=== PATIENT | female | born 1970 | race African-American/Black ===

== ENCOUNTER 2017-04-21 20:33 | Emergency (ER) | payer OTHER ==
[2017-04-21 20:43] VITALS: BMI 54.7
--- NOTE | 2017-04-21 21:17 | PDOC ---
History of Present Illness - General History Source: Patient Exam Limitations: No Limitations - History of Present Illness Travel History: No Initial Comments: 04/21/17 21:28 46-year-old female with a history of peripheral neuropathy presents to the emergency department complaining of nausea, vomiting, diarrhea/nonbloody: Nonbilious with diffuse abdominal pains 3 days. Pain is described as 8/10 dull nonradiating intermittent discomfort. There are no exacerbating or alleviating factors. Patient denies any headache, dizziness, lightheadedness, neck pain, back pains, chest pain, shortness of breath, flank pains, urinary symptoms, Olaf numbness or tingling sensation. 2002: Patient weigh 454 pounds. Gastric bypass/[facility]: Until rolled Dr. Pike Lost 170lb in 90 days 2014: Revision/gastric bypass due to poss severe adhesions/Dr. Brumfield [facility] Dr. Sepulveda/ Pt lost ~80lb over the past 3 years Timing/Duration: reports: intermittent Quality: reports: moderate Abdominal Pain Onset Location: reports: generalized abdomen Pain Radiation: reports: no radiation Activities at Onset: reports: none Aggravating Factors: improves with: None Alleviating Factors: improves with: None <Quinton Whitlock - Last Filed: 04/22/17 02:08> <Augusto Escudero - Last Filed: 04/24/17 09:15> - General Chief Complaint: Shortness of Breath Stated Complaint: TROUBLE BREATHING Time Seen by Provider: 04/21/17 21:05 Past History - Past Medical History Anemia: Yes Dementia: No Diabetes: No Suicide Attempt (Hx): No - Surgical History Gastric Stapling: Yes (x2) - Immunization History Immunization Up to Date: Yes - Psycho/Social/Smoking Cessation Hx Anxiety: No Suicidal Ideation: No Smoking Status: No Smoking History: Never smoked Have you smoked in the past 12 months: No Number of Cigarettes Smoked Daily: 0 Hx Alcohol Use: No Drug/Substance Use Hx: No Substance Use Type: None Hx Substance Use Treatment: No <Quinton Whitlock - Last Filed: 04/22/17 02:08> <Augusto Escudero - Last Filed: 04/24/17 09:15> - Past Medical History Allergies/Adverse Reactions: Allergies Allergy/AdvReac Type Severity Reaction Status Date / Time erythromycin base Allergy Mild Hives Verified 04/21/17 20:44 [Erythromycin Base] Home Medications: Ambulatory Orders Clonazepam [Klonopin -] 0.5 mg PO HS PRN 11/07/11 Topiramate [Topamax] 50 mg PO BID 07/31/12 Levothyroxine [Synthroid -] 25 mcg PO DAILY 08/04/13 Biotin [Redd Biotin] 10,000 mcg PO DAILY 12/10/14 Cyanocobalamin [Vitamin B12 -] 50,000 mcg PO DAILY 12/10/14 Morphine *Sr* [MS Contin -] 15 mg PO Q12H PRN 12/10/14 Pregabalin [Lyrica -] 25 mg PO BID 12/10/14 Pyridoxine HCl [Vitamin B-6] 1,000 mg PO DAILY 12/10/14 Thiamine HCl [Vitamin B1] 25 mg PO DAILY 12/10/14 Vitamin E 5,000 unit PO DAILY 12/10/14 Meloxicam [Mobic] 15 mg PO DAILY 06/24/16 Omeprazole 20 mg PO DAILY 06/24/16 Lisinopril/Hydrochlorothiazide [Lisinopril-Hctz 20-25 mg Tab] 1 each PO DAILY Levofloxacin [Levaquin] 750 mg PO DAILY #9 tablet 04/22/17 Review of Systems - Review of Systems Able to Perform ROS?: Yes Comments:: 04/21/17 21:25 CONSTITUTIONAL: Absent: fever, chills, diaphoresis, generalized weakness, malaise, loss of appetite CARDIOVASCULAR: Absent: chest pain, loss of consciousness, palpitations, irregular heart rate, peripheral edema RESPIRATORY: Absent: cough, shortness of breath, dyspnea with exertion, orthopnea, wheezing, stridor, hemoptysis GASTROINTESTINAL: Absent: +Diffuse abd pain, +n/v/d abdominal distension, constipation, melena, hematochezia GENITOURINARY: Absent: dysuria, frequency, urgency, hesitancy, hematuria, flank pain, genital pain SKIN: Absent: rash, itching, pallor HEMATOLOGIC/IMMUNOLOGIC: Absent: easy bleeding, easy bruising, lymphadenopathy, frequent infections ENDOCRINE: Absent: unexplained weight gain, unexplained weight loss, heat intolerance, cold intolerance NEUROLOGIC: Absent: headache, focal weakness or paresthesias, dizziness, unsteady gait, seizure, mental status changes, bladder or bowel incontinence PSYCHIATRIC: Absent: anxiety, depression, suicidal or homicidal ideation, hallucinations. Is the patient limited Portuguese proficient: No <Quinton Whitlock - Last Filed: 04/22/17 02:08> *Physical Exam - Vital Signs Last Vital Signs Temp Pulse Resp BP Pulse Ox 100.6 F H 97 H 20 149/56 98 04/21/17 20:42 04/21/17 20:42 04/21/17 20:42 04/21/17 20:42 04/21/17 20:42 - Physical Exam Comments: 04/21/17 21:26 GENERAL: Well developed, well nourished. Awake and alert. No acute distress. HEENT: Normocephalic, atraumatic. PERRLA, EOMI. No conjunctival pallor. Sclera are non- icteric. Moist mucous membranes. Oropharynx is clear. NECK: Supple. Full ROM. No JVD. Carotid pulses 2+ and symmetric, without bruits. No thyromegaly. No lymphadenopathy. CARDIOVASCULAR: Regular rate and rhythm. No murmurs, rubs, or gallops. Distal pulses are 2+ and symmetric. PULMONARY: No evidence of respiratory distress. Lungs clear to auscultation bilaterally. No wheezing, rales or rhonchi. ABDOMINAL: +diffuse abd pain Soft. Non-distended. No rebound or guarding. No organomegaly. Normoactive bowel sounds. MUSCULOSKELETAL Normal range of motion at all joints. No bony deformities or tenderness. No CVA tenderness. EXTREMITIES: No cyanosis. No clubbing. No edema. No calf tenderness. SKIN: Warm and dry. Normal capillary refill. No rashes. No jaundice. NEUROLOGICAL: Alert, awake, appropriate. Cranial nerves 2-12 intact. No deficits to light touch and temperature in face, upper extremities and lower extremities. No motor deficits in the in face, upper extremities and lower extremities. Normoreflexic in the upper and lower extremities. Normal speech. Toes are down- going bilaterally. Gait is normal without ataxia. PSYCHIATRIC: Cooperative. Good eye contact. Appropriate mood and affect. <Quinton Whitlock - Last Filed: 04/22/17 02:08> - Vital Signs Last Vital Signs Temp Pulse Resp BP Pulse Ox 98.8 F 82 18 138/76 98 04/22/17 04:30 04/22/17 04:30 04/22/17 04:30 04/22/17 04:30 04/22/17 04:30 <Augusto Escudero - Last Filed: 04/24/17 09:15> ED Treatment Course - LABORATORY CBC & Chemistry Diagram: 04/21/17 21:30 04/21/17 22:11 - RADIOLOGY Radiograph Interpretation: 04/22/17 02:08 EXAM: CT ABDOMEN AND PELVIS WITH CONTRAST Patchy densities right lower lobe, consistent with pneumonia. Gastric bypass. No bowel obstruction, colitis, free fluid or free air. Normal appendix. Unremarkable pancreas. Tiny cortical hypodensities left kidney. Caliectasis left lower pole versus small parapelvic cyst. Hepatomegaly. Cholelithiasis. THIS DOCUMENT HAS BEEN ELECTRONICALLY SIGNED <Quinton Whitlock - Last Filed: 04/22/17 02:08> - LABORATORY CBC & Chemistry Diagram: 04/21/17 21:30 04/21/17 22:11 - ADDITIONAL ORDERS Additional order review: 04/21/17 21:30 RBC 4.81 MCV 75.2 L MCHC 32.4 RDW 16.6 H MPV 8.7 Neutrophils % 82.2 D Lymphocytes % 11.2 D Monocytes % 5.6 Eosinophils % 0.1 D Basophils % 0.9 - Medications Given in the ED: ED Medications Discontinued Medications Generic Name Dose Route Start Last Admin Trade Name Jenifer PRN Reason Stop Dose Admin Acetaminophen 1,000 mg 04/22/17 01:41 04/22/17 01:41 Ofirmev Injection - IVPB 04/22/17 01:42 1,000 mg ONCE ONE Administration Sodium Chloride 1,000 mls @ 150 mls/hr 04/21/17 21:30 04/21/17 21:35 Normal Saline - IV 150 mls/hr ASDIR MILTON Administration Levofloxacin 150 mls @ 100 mls/hr 04/22/17 01:43 04/22/17 02:30 Levaquin 750 Mg Premixed Ivpb - IVPB 04/22/17 03:12 100 mls/hr ONCE ONE Administration <Augusto Escudero - Last Filed: 04/24/17 09:15> Medical Decision Making - Medical Decision Making 04/24/17 09:14 The patient was seen and evaluated in conjunction with KATHERINE Whitlock under my direct supervision, ancillary studies were reviewed. I agree with the plan as outlined by KATHERINE Whitlock. <Kena,Augusto - Last Filed: 04/24/17 09:15> *DC/Admit/Observation/Transfer - Discharge Dispostion Admit: No <Quinton Whitlock - Last Filed: 04/22/17 02:08> <KenaAugusto - Last Filed: 04/24/17 09:15> Diagnosis at time of Disposition: Pneumonia Qualifiers: Pneumonia type: due to unspecified organism Laterality: right Lung location: lower lobe of lung Qualified Code(s): J18.1 - Lobar pneumonia, unspecified organism Cholelithiasis Qualifiers: Cholelithiasis location: gallbladder Cholecystitis presence: without cholecystitis Biliary obstruction: without biliary obstruction Qualified Code(s) : K80.20 - Calculus of gallbladder without cholecystitis without obstruction - Discharge Dispostion Disposition: HOME Condition at time of disposition: Stable - Prescriptions Prescriptions: Levofloxacin [Levaquin] 750 mg PO DAILY #9 tablet - Referrals Referrals: Emelia Mulligan [Primary Care Provider] - Chung Boo MD [Staff Physician] - - Patient Instructions Printed Discharge Instructions: DI for Pneumonia -- Adult, DI for Gallstones Additional Instructions: Take the Levaquin 750mg 1 tablet daily for the next 9 days. (Start tomorrow; ). You had your first dose in the ER today. Increase fluids Take Tylenol alternating with Motrin every 6 hours as needed Follow-up with your physician, especially if you are not fever free for 48-72 hours while taking the antibiotics Return to the emergency department for persistent/severe or worsening symptoms Follow-up with a general surgeon (Dr. Boo)for consultation on your gallstones.
[2017-04-21] MEDS ORDERED: SODIUM CHLORIDE 1,000 ML IV SCH (21:30)
[2017-04-21 21:39] LABS: BASOPHIL 0.9 % (0-2.0); EOSINOPHIL 0.1 % (0-4.5); MCH 24.4 pg (25.7-33.7); MCHC 32.4 g/dl (32.0-36.0); MEAN CELL VOLUME 75.2 fl (80-96); MEAN PLT VOLUME 8.7 fl (7.5-11.1); NEUTROPHILS 82.2 % (42.8-82.8); PLATELET COUNT 412 K/MM3 (134-434); RDW 16.6 % (11.6-15.6); WHITE BLOOD COUNT 14.3 K/mm3 (4.0-10.0)
[2017-04-21 22:46] LABS: URINE APPEARANCE SLCLOUDY; URINE BILIRUBIN NEGATIVE (NEGATIVE); URINE BLOOD NEGATIVE (NEGATIVE); URINE COLOR YELLOW; URINE GLUCOSE (UA) NEGATIVE (NEGATIVE); URINE KETONE NEGATIVE (NEGATIVE); URINE LEUK ESTERASE NEGATIVE (NEGATIVE); URINE NITRITE NEGATIVE (NEGATIVE); URINE PROTEIN NEGATIVE (NEGATIVE); URINE UROBILINOGEN NEGATIVE mg/dL (0.2-1.0)
[2017-04-21 22:52] LABS: ALBUMIN 3.8 g/dl (3.4-5.0); ALK PHOS 114 U/L (45-117); ANION GAP 10 (8-16); BILIRUBIN,TOTAL 0.3 mg/dL (0.2-1.0); CALCIUM 9.1 mg/dL (8.5-10.1); CO2 27 mmol/L (21-32); CREATININE 0.8 mg/dL (0.55-1.02); GLUCOSE,RANDOM 86 mg/dL (74-106); SGOT/AST 14 U/L (15-37); SGPT/ALT 17 U/L (12-78); TOT PROT 8.7 g/dl (6.4-8.2)
[2017-04-22] MEDS ORDERED: ACETAMINOPHEN 325 MG TABLET (FP) ONE (01:18)
[2017-04-22] MEDS ORDERED: ACETAMINOPHEN INJECTION 100 ML IVPB ONE (01:20)
[2017-04-22] MEDS ORDERED: ACETAMINOPHEN 1000 MG/100 ML VIAL (NON FORMULARY) IVPB ONE (01:41)
[2017-04-22] MEDS ORDERED: LEVOFLOXACIN 750 MG IVPB 150 ML IVPB ONE ×2 (01:43→02:26)
[2017-04-22 04:31] VITALS: BP 138/76; PULSE 82; TEMP 98.8
--- NOTE | 2017-04-22 06:54 | PN ---
Progress Note (short form) - Note Progress Note: Elizabeth pages me last evening with the message she has N/V/D and abdominal pain and she is going to [facility] ER. I called her back but no answer, I left message to go to ER and call me back. Will f/u with her in the office next week.
--- NOTE | 2017-04-22 11:36 | PN ---
Progress Note (short form) - Note Progress Note: pt paged me from home she was in ER last evening with N/V sent home on levaquin po for PNA but she still keeps vomiting I advised her to come back to ER and I spoke with ER dr Das most likely will need admission to .
== END 2017-04-22 04:30 | disposition home or self-care (01) ==
LOC: JER 20:33
PROC: 3E03329 Introduction of Other Anti-infective into Peripheral Vein, Percutaneous Approach (ICD-10-PCS; principal; 2017-04-21)
PROC: 3E033NZ Introduction of Analgesics, Hypnotics, Sedatives into Peripheral Vein, Percutaneous Approach (ICD-10-PCS; 2017-04-21)
PROC: 3E0337Z Introduction of Electrolytic and Water Balance Substance into Peripheral Vein, Percutaneous Approach (ICD-10-PCS; 2017-04-21)
DX: J18.1 Lobar pneumonia, unspecified organism (principal); K80.20 Calculus of gallbladder without cholecystitis without obstruction; G62.9 Polyneuropathy, unspecified; Z98.84 Bariatric surgery status; Z88.1 Allergy status to other antibiotic agents; D64.9 Anemia, unspecified
CPT/HCPCS: 36415; 71010-TC; 74177-TC; 80053; 81003; 84703; 85025; 99283-25; Q9967

== ENCOUNTER 2017-08-14 23:03 | Emergency (ER) | payer OTHER ==
[2017-08-15 00:05] VITALS: BP 153/96; PULSE 88; TEMP 98.7; BMI 54.8
--- NOTE | 2017-08-15 00:09 | PDOC ---
History of Present Illness - General History Source: Patient Exam Limitations: No Limitations - History of Present Illness Initial Comments: 08/15/17 01:03 The patient is a 47 year old female, with a significant past medical history of neuropathy,Guillain barre syndrome, GERD, hypothyroidism,anemia,lumbar radiculopathy(receives steroid shots), migraines who presents to the emergency department with sudden onset headache and arm pain that began yesterday. Patient reports R sided headache that radiates down RUE. Patient reports pain is 10/10 in severity, throbbing and squeezing in nature. Patient reports taking Tylenol however denies any relief. Patient also feels off balance and presents to the ED for further evaluation. Patient denies chest pain, headache or dizziness. Patient denies fever, chills, abdominal pain, nausea, vomit, diarrhea or constipation. Patient denies dysuria , frequency, urgency or hematuria. Patient denies sick contacts or recent travel. Allergies: erythromycin base Past surgical history: Gastric bypass Social history: None PCP: Dr. Emelia Mulligan <Elvia James - Last Filed: 08/15/17 01:58> <Heather Phelan - Last Filed: 08/15/17 02:33> - General Chief Complaint: Pain, Acute Stated Complaint: PAIN IN RT ARM Time Seen by Provider: 08/14/17 23:33 Past History <Elvia James - Last Filed: 08/15/17 01:58> - Past Medical History Anemia: Yes Dementia: No Diabetes: No - Surgical History Gastric Stapling: Yes (x2) - Immunization History Immunization Up to Date: Yes - Suicide/Smoking/Psychosocial Hx Smoking Status: No Smoking History: Never smoked Have you smoked in the past 12 months: No Number of Cigarettes Smoked Daily: 0 Information on smoking cessation initiated: No Hx Alcohol Use: No Drug/Substance Use Hx: No Substance Use Type: None Hx Substance Use Treatment: No <Heather Phelan - Last Filed: 08/15/17 02:33> - Past Medical History Allergies/Adverse Reactions: Allergies Allergy/AdvReac Type Severity Reaction Status Date / Time erythromycin base Allergy Mild Hives Verified 08/15/17 00:02 [Erythromycin Base] Home Medications: Ambulatory Orders Clonazepam [Klonopin -] 0.5 mg PO HS PRN 11/07/11 Topiramate [Topamax] 50 mg PO BID 07/31/12 Levothyroxine [Synthroid -] 25 mcg PO DAILY 08/04/13 Biotin [Redd Biotin] 10,000 mcg PO DAILY 12/10/14 Cyanocobalamin [Vitamin B12 -] 50,000 mcg PO DAILY 12/10/14 Morphine *Sr* [MS Contin -] 15 mg PO Q12H PRN 12/10/14 Pregabalin [Lyrica -] 25 mg PO BID 12/10/14 Pyridoxine HCl [Vitamin B-6] 1,000 mg PO DAILY 12/10/14 Thiamine HCl [Vitamin B1] 25 mg PO DAILY 12/10/14 Vitamin E 5,000 unit PO DAILY 12/10/14 Meloxicam [Mobic] 15 mg PO DAILY 06/24/16 Omeprazole 20 mg PO DAILY 06/24/16 Lisinopril/Hydrochlorothiazide [Lisinopril-Hctz 20-25 mg Tab] 1 each PO DAILY Review of Systems - Review of Systems Able to Perform ROS?: Yes Comments:: 08/15/17 01:03 CONSTITUTIONAL: Absent: fever, chills, diaphoresis, generalized weakness, malaise, loss of appetite HEENT: Absent: rhinorrhea, nasal congestion, throat pain, throat swelling, difficulty swallowing, mouth swelling, ear pain, eye pain, visual Changes CARDIOVASCULAR: Absent: chest pain, syncope, palpitations, irregular heart rate, lightheadedness , peripheral edema RESPIRATORY: Absent: cough, shortness of breath, dyspnea with exertion, orthopnea, wheezing, stridor, hemoptysis GASTROINTESTINAL: Absent: abdominal pain, abdominal distension, nausea, vomiting, diarrhea, constipation, melena, hematochezia GENITOURINARY: Absent: dysuria, frequency, urgency, hesitancy, hematuria, flank pain, genital pain MUSCULOSKELETAL: Absent: myalgia, arthralgia, joint swelling SKIN: Absent: rash, itching, pallor HEMATOLOGIC/IMMUNOLOGIC: Absent: easy bleeding, easy bruising, lymphadenopathy, frequent infections ENDOCRINE: Absent: unexplained weight gain, unexplained weight loss, heat intolerance, cold intolerance NEUROLOGIC: +headache. Absent: focal weakness or paresthesias, dizziness, unsteady gait, seizure, mental status changes, bladder or bowel incontinence PSYCHIATRIC: Absent: anxiety, depression, suicidal or homicidal ideation, hallucinations. <Jacob,Elvia - Last Filed: 08/15/17 01:58> *Physical Exam - Vital Signs Last Vital Signs Temp Pulse Resp BP Pulse Ox 98.7 F 88 14 153/96 95 08/15/17 00:03 08/15/17 00:03 08/15/17 00:03 08/15/17 00:03 08/15/17 00:03 - Physical Exam Comments: 08/15/17 01:04 GENERAL: Well developed, well nourished. Awake and alert. No acute distress. HEENT: Normocephalic, atraumatic. PERRLA, EOMI. No conjunctival pallor. Sclera are non- icteric. Moist mucous membranes. Oropharynx is clear. NECK: Supple. Full ROM. No JVD. Carotid pulses 2+ and symmetric, without bruits. No thyromegaly. No lymphadenopathy. CARDIOVASCULAR: Regular rate and rhythm. No murmurs, rubs, or gallops. Distal pulses are 2+ and symmetric. PULMONARY: No evidence of respiratory distress. Lungs clear to auscultation bilaterally. No wheezing, rales or rhonchi. ABDOMINAL: Soft. Non-tender. Non-distended. No rebound or guarding. No organomegaly. Normoactive bowel sounds. MUSCULOSKELETAL Normal range of motion at all joints. No bony deformities or tenderness. No CVA tenderness. EXTREMITIES: No cyanosis. No clubbing. No edema. No calf tenderness. SKIN: Warm and dry. Normal capillary refill. No rashes. No jaundice. NEUROLOGICAL: Alert, awake, appropriate. Cranial nerves 2-12 intact. No deficits to light touch and temperature in face, upper extremities and lower extremities. No motor deficits in the in face, upper extremities and lower extremities. Normoreflexic in the upper and lower extremities. Normal speech. Toes are down-going bilaterally. Gait is normal without ataxia. PSYCHIATRIC: Cooperative. Good eye contact. Appropriate mood and affect. <Elvia James - Last Filed: 08/15/17 01:58> - Vital Signs Last Vital Signs Temp Pulse Resp BP Pulse Ox 98.7 F 88 14 153/96 95 08/15/17 00:03 08/15/17 00:03 08/15/17 00:03 08/15/17 00:03 08/15/17 00:03 <Heather Phelan - Last Filed: 08/15/17 02:33> ED Treatment Course - Medications Given in the ED: ED Medications Discontinued Medications Generic Name Dose Route Start Last Admin Trade Name Jenifer PRN Reason Stop Dose Admin Ketorolac Tromethamine 60 mg 08/15/17 00:45 08/15/17 00:58 Toradol Injection - IM 08/15/17 00:46 60 mg ONCE ONE Administration <Elvia James - Last Filed: 08/15/17 01:58> Medical Decision Making - Medical Decision Making 08/15/17 01:[address] IMPRESSION: Normal head THIS DOCUMENT HAS BEEN ELECTRONICALLY SIGNED Rustam Grove MD <Elvia James - Last Filed: 08/15/17 01:58> - Medical Decision Making 08/15/17 02:15 Pt reassessment: -she is moving her arm freely and is much more comfortable plan she already has an appt with DR ANTON rothman Wed -she is already scheduled for EMG of her upper extremities next week IMP -peripheral neuropathy <Heather Phelan - Last Filed: 08/15/17 02:33> *DC/Admit/Observation/Transfer - Attestations Scribe Attestion: 08/15/17 01:04 Documentation prepared by Elvia James, acting as resident medical officer for Heather Phelan MD <Elvia James - Last Filed: 08/15/17 01:58> <Heather Phelan - Last Filed: 08/15/17 02:33> Diagnosis at time of Disposition: Arm pain, left Head pain cephalgia Qualifiers: Headache type: tension-type Headache chronicity pattern: unspecified pattern Intractability: not intractable Qualified Code(s): G44.209 - Tension-type headache, unspecified, not intractable - Discharge Dispostion Disposition: HOME Condition at time of disposition: Stable - Referrals Referrals: Emelia Mulligan [Primary Care Provider] - - Patient Instructions Additional Instructions: Keep your appointment with your neurologist this week Take your regular medications 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 on [address] [facility] Return for any worsening symptoms - Post Discharge Activity
[2017-08-15] MEDS ORDERED: KETOROLAC TROMETHAMINE 60 MG/2 ML VIAL IM ONE (00:45)
[2017-08-15] MEDS ORDERED: KETOROLAC TROMETHAMINE 60 MG/2 ML VIAL ONE (00:50)
[2017-08-15] MEDS ORDERED: CYCLOBENZAPRINE HCL 10 MG TABLET (FP) ONE (02:26)
[2017-08-15] MEDS ORDERED: CYCLOBENZAPRINE HCL 10 MG TABLET (FP) PO ONE (02:30)
== END 2017-08-15 02:38 | disposition home or self-care (01) ==
LOC: JER 23:03
PROC: 3E0233Z Introduction of Anti-inflammatory into Muscle, Percutaneous Approach (ICD-10-PCS; principal; 2017-08-14)
DX: M79.601 Pain in right arm (principal); G44.209 Tension-type headache, unspecified, not intractable
CPT/HCPCS: 70450-TC; 96372; 99282-25

== ENCOUNTER 2018-06-02 02:18 | Emergency (ER) | payer OTHER ==
[2018-06-02] MEDS ORDERED: morphine CARPU-JECT 4 MG/1 ML DISP.SYRIN IVPUSH ONE (02:43)
[2018-06-02] MEDS ORDERED: ONDANSETRON 4 MG/2 ML VIAL IVPB ONE (02:44)
[2018-06-02] MEDS ORDERED: SODIUM CHLORIDE 1,000 ML IV STA (02:44)
--- NOTE | 2018-06-02 02:48 | PDOC ---
History of Present Illness - History of Present Illness Initial Comments: 06/02/18 02:45 48 y/o f with PMH lumbar rediculopathy and bariatric surgery came to hospital because of pain abdomen since 3 days. Patient states that pain started 3 days ago and is progressively increasing. Pain is 10/10 in intensity, sharp in nature , constant, radiates to right shoulder and increases with breathing and lying down. Tried over the counter med Motrin which didn't help it. Pain is associated with nausea and vomiting. Patient vomited once in afternoon which contain food particles. Patient reports poor oral intake because of pain. Denies fever and chills. Denies constipation and diarrhoea. Denies heart burn. Denies regurgitation. Denies abdominal distension. Reports last bowel movement yesterday and is still passes flatus. Denies yellow discoloration of skin and eyes. PMH lumbar rediculopathy, peripharal neuropathy. PSH: 1 bariatric surgery 2014: Revision/gastric bypass due to poss severe adhesions/Dr. Brum[facility] Dr. Sepulveda <Ellis Mauro - Last Filed: 06/02/18 05:16> <Jaja Bocanegra - Last Filed: 06/02/18 05:30> - General Chief Complaint: Pain Stated Complaint: ABD PAIN Time Seen by Provider: 06/02/18 02:31 Past History - Past Medical History Anemia: Yes COPD: No Dementia: No Diabetes: No - Surgical History Gastric Stapling: Yes (x2) - Immunization History Immunization Up to Date: Yes - Suicide/Smoking/Psychosocial Hx Smoking Status: No Smoking History: Never smoked Have you smoked in the past 12 months: No Number of Cigarettes Smoked Daily: 0 Hx Alcohol Use: No Drug/Substance Use Hx: No Substance Use Type: None Hx Substance Use Treatment: No <Ellis Mauro - Last Filed: 06/02/18 05:16> <Jaja Bocanegra - Last Filed: 06/02/18 05:30> - Past Medical History Allergies/Adverse Reactions: Allergies Allergy/AdvReac Type Severity Reaction Status Date / Time erythromycin base Allergy Mild Hives Verified 06/02/18 02:58 [Erythromycin Base] Home Medications: Ambulatory Orders clonazePAM [Klonopin -] 0.5 mg PO HS PRN 11/07/11 Pregabalin [Lyrica -] 25 mg PO BID 04/01/15 Meloxicam [Mobic] 15 mg PO DAILY 06/24/16 Omeprazole 20 mg PO DAILY 06/24/16 Lisinopril/Hydrochlorothiazide [Lisinopril-Hctz 20-25 mg Tab] 1 each PO DAILY Cyclobenzaprine HCl [Flexeril 10 mg] 10 mg PO BID PRN #10 tablet 08/15/17 Ibuprofen 800 mg PO TID #30 tablet 04/13/18 Oxycodone HCl/Acetaminophen [Percocet 5-325 mg Tablet] 1 tab PO Q6H PRN #10 tablet MDD 4 04/13/18 Review of Systems - Review of Systems Able to Perform ROS?: Yes Constitutional: No: Chills, Fever Respiratory: No: Cough, Shortness of Breath, Stridor, Wheezing Cardiac (ROS): No: Chest Pain, Lightheadedness, Palpitations ABD/GI: Yes: Symptoms Reported : No: Burning, Dysuria Neurological: No: Headache, Numbness <Ellis Mauro - Last Filed: 06/02/18 05:16> *Physical Exam - Physical Exam General Appearance: Yes: Appropriately Dressed, Mild Distress HEENT: positive: EOMI, Other (dry mucus membrane ) Neck: positive: Supple. negative: Tender Respiratory/Chest: positive: Lungs Clear, Normal Breath Sounds. negative: Respiratory Distress, Accessory Muscle Use, Crackles, Rales Cardiovascular: positive: Regular Rhythm, Regular Rate, S1, S2 Gastrointestinal/Abdominal: positive: Normal Bowel Sounds, Tender (in ruq, chin sign positive. ), Soft, Rebound, Other (obese. ). negative: Guarding Musculoskeletal: positive: CVA Tenderness Extremity: negative: Pedal Edema Integumentary: positive: Dry <Ellis Mauro - Last Filed: 06/02/18 05:16> - Vital Signs Last Vital Signs Temp Pulse Resp BP Pulse Ox 98.1 F 62 20 115/76 99 06/02/18 02:58 06/02/18 05:18 06/02/18 05:18 06/02/18 05:18 06/02/18 05:18 <Jaja Bocanegra - Last Filed: 06/02/18 05:30> ED Treatment Course - LABORATORY CBC & Chemistry Diagram: 06/02/18 04:00 06/02/18 04:00 - RADIOLOGY Radiology Studies Ordered: Category Date Time Status ABDOMEN US -LIMITED [US] Stat Ultrasound 06/02/18 02:41 Ordered KIDNEY / RENAL US [US] Stat Ultrasound 06/02/18 02:43 Ordered <Ellis Mauro - Last Filed: 06/02/18 05:16> - LABORATORY CBC & Chemistry Diagram: 06/02/18 04:00 06/02/18 04:00 - ADDITIONAL ORDERS Additional order review: Laboratory Results 06/02/18 06/02/18 06/02/18 04:40 04:40 04:00 PT with INR 10.70 INR 0.95 Sodium Potassium Chloride Carbon Dioxide Anion Gap BUN Creatinine Creat Clearance w eGFR Random Glucose Calcium Total Bilirubin AST ALT Alkaline Phosphatase Total Protein Albumin Lipase Urine Color Ltyellow Urine Appearance Clear Urine pH 5.0 D Ur Specific [place] 1.017 Urine Protein Negative Urine Glucose (UA) Negative Urine Ketones Negative Urine Blood Negative Urine Nitrite Negative Urine Bilirubin Negative Urine Urobilinogen Negative Ur Leukocyte Esterase Negative Urine HCG, Qual Negative 06/02/18 04:00 PT with INR INR Sodium 143 Potassium 4.6 Chloride 108 H Carbon Dioxide 28 Anion Gap 7 L BUN 11 Creatinine 0.7 Creat Clearance w eGFR > 60 Random Glucose 82 Calcium 8.7 Total Bilirubin 0.2 AST 14 L ALT 14 Alkaline Phosphatase 90 Total Protein 7.4 Albumin 3.5 Lipase 114 Urine Color Urine Appearance Urine pH Ur Specific [place] Urine Protein Urine Glucose (UA) Urine Ketones Urine Blood Urine Nitrite Urine Bilirubin Urine Urobilinogen Ur Leukocyte Esterase Urine HCG, Qual 06/02/18 04:00 RBC 4.47 MCV 77.0 L MCHC 32.3 RDW 19.6 H MPV 8.2 Neutrophils % 60.3 Lymphocytes % 30.5 D Monocytes % 7.2 Eosinophils % 1.7 D Basophils % 0.3 - Medications Given in the ED: ED Medications Discontinued Medications Generic Name Dose Route Start Last Admin Trade Name Freq PRN Reason Stop Dose Admin Sodium Chloride 1,000 mls @ 1,000 mls/hr 06/02/18 02:44 06/02/18 04:30 Normal Saline - IV 06/02/18 03:43 1,000 mls/hr ASDIR STA Administration Morphine Sulfate 4 mg 06/02/18 02:43 06/02/18 04:30 Morphine Injection - IVPUSH 06/02/18 02:44 4 mg ONCE ONE Administration Ondansetron HCl 4 mg 06/02/18 02:44 06/02/18 04:30 Zofran Injection IVPB 06/02/18 02:45 4 mg ONCE ONE Administration Pantoprazole Sodium 40 mg 06/02/18 02:49 06/02/18 04:30 Protonix Iv IVPUSH 06/02/18 02:50 40 mg ONCE ONE Administration <Jaja Bocanegra - Last Filed: 06/02/18 05:30> Medical Decision Making - Medical Decision Making 06/02/18 02:59 48 y/o f with PMH lumbar rediculopathy and bariatric surgery came to hospital because of pain abdomen since 3 days. Patient states that pain started 3 days ago and is progressively increasing. Pain is 10/10 in intensity, sharp in nature , constant, radiates to right shoulder and increases with breathing and lying down. Tried over the counter med Motrin which didn't help it. Pain is associated with nausea and vomiting. Patient vomited once in afternoon which contain food particles. Patient reports poor oral intake because of pain. Denies fever and chills. Denies constipation and diarrhoea. Denies heart burn. Denies regurgitation. Denies abdominal distension. Reports last bowel movement yesterday and is still passes flatus. we will get cbc, cmp, lipase, usg for liver and kidney. we will give her morphine, protonix, zofran. 06/02/18 04:37 [facility] oncall imaging report reviewed: cholelithiasis, GB wall thickness 3mm, no pericholecystic fluid. 06/02/18 04:44 cbc report reviewed 06/02/18 05:02 cmp reviewed. 06/02/18 05:03 pt feels better BP 145/[address] Bocanegra patient can be discharged home. advise to Increase fluids Take Tylenol alternating with Motrin every 6 hours as needed Follow-up with your physician, especially if you are not fever free for 48-72 hours while taking the antibiotics Return to the emergency department for persistent/severe or worsening symptoms Follow-up with a general surgeon (Dr. Boo)for consultation on your gallstones. 06/02/18 05:15 <Ellis Mauro - Last Filed: 06/02/18 05:16> *DC/Admit/Observation/Transfer - Discharge Dispostion Decision to Admit order: No <Ellis Mauro - Last Filed: 06/02/18 05:16> <BocanegraJaja - Last Filed: 06/02/18 05:30> Diagnosis at time of Disposition: Pain of upper abdomen, Biliary colic, Cholelithiasis - Discharge Dispostion Disposition: HOME - Referrals Referrals: Emelia Mulligan [Primary Care Provider] - Luis Antonio Rojas MD [Staff Physician] - - Patient Instructions Printed Discharge Instructions: DI for Acute Abdomen, Eating a Diet Rich in Fruits and Vegetables Additional Instructions: Increase fluids intake Take Tylenol alternating with Motrin every 6 hours as needed Follow-up with your physician Return to the emergency department for persistent/severe or worsening symptoms Follow-up with a general surgeon (Dr. Boo)for consultation on your gallstones. - Post Discharge Activity
[2018-06-02] MEDS ORDERED: PANTOPRAZOLE SODIUM 40 MG VIAL IVPUSH ONE (02:49)
--- NOTE | 2018-06-02 02:52 | PDOC ---
Attending Attestation - Resident Resident Name: Ellis Mauro - ED Attending Attestation I have performed the following: I have examined & evaluated the patient, The case was reviewed & discussed with the resident, I agree w/resident's findings & plan - HPI HPI: 06/02/18 19:29 Pt comes with RUQ pain. She is morbidly obese - Physicial Exam PE: 06/02/18 19:30 Pt is morbidly obese; her RUQ is tender, otherwise afebrile; pt appears well. - Medical Decision Making 06/02/18 05:10 Patient Name: BRODY JONES THIS IS A PRELIMINARY REPORT FROM [facility] DATE OF SERVICE: 2018-06-02 03:24:02 IMAGES: 69 EXAM: ULTRASOUND ABDOMEN COMPLETE Multiple gallstones, borderline gallbladder lumen dilatation, and top normal gallbladder wall thickness (3 mm). No reported sonographic Bryson's sign and no pericholecystic fluid to suggest acute cholecystitis. If there is concern for early acute cholecystitis, consider repeat ultrasound or further evaluation with HIDA scan. Hepatomegaly. Coarse liver echotexture, probably steatosis. Unremarkable kidneys, spleen and visualized aorta and pancreas. Normal common duct diameter, 5 mm. 06/02/18 19:30 Pt will follow with Dr. Rojas, who is business solutions consultant. She used to go to Dr. Sotomayor, but she is looking for another GI doc. She understands that she has gallstones and that she needs to maintain a no-fat diet in order to improve her situation, and that she needs to follow with GI,
[2018-06-02 03:03] VITALS: TEMP 98.1; BMI 49.7
[2018-06-02] MEDS ORDERED: PANTOPRAZOLE SODIUM 40 MG/100 ML BAG IVPB ONE (03:17)
[2018-06-02] MEDS ORDERED: ONDANSETRON 4 MG/2 ML VIAL ONE (03:17)
[2018-06-02] MEDS ORDERED: morphine SULFATE 4 MG/ML VIAL ONE (03:17)
[2018-06-02 04:20] LABS: BASO % 0.3 % (0-2.0); EOS % 1.7 % (0-4.5); HEMATOCRIT 34.4 % (32.4-45.2); HEMOGLOBIN 11.1 GM/dL (10.7-15.3); LYMPH % 30.5 % (8-40); MCH 24.9 pg (25.7-33.7); MCHC 32.3 g/dl (32.0-36.0); MEAN PLT VOLUME 8.2 fl (7.5-11.1); MONO % 7.2 % (3.8-10.2); NEUT % 60.3 % (42.8-82.8); PLATELET COUNT 393 K/MM3 (134-434); RBC 4.47 M/mm3 (3.60-5.2); RDW 19.6 % (11.6-15.6); WHITE BLOOD COUNT 10.1 K/mm3 (4.0-10.0)
[2018-06-02 04:43] LABS: INR 0.95 (0.83-1.09); PROTHROMBIN TIME (PATIENT) 10.7 SEC (9.7-13.0)
[2018-06-02 04:49] LABS: ALBUMIN 3.5 g/dl (3.4-5.0); ALK PHOS 90 U/L (45-117); ANION GAP 7 MMOL/L (8-16); BILIRUBIN,TOTAL 0.2 mg/dL (0.2-1); BLOOD UREA NITROGEN 11 mg/dL (7-18); CALCIUM 8.7 mg/dL (8.5-10.1); CHLORIDE 108 mmol/L (98-107); CO2 28 mmol/L (21-32); CREATININE 0.7 mg/dL (0.55-1.3); GLUCOSE,RANDOM 82 mg/dL (74-106); LIPASE 114 U/L (73-393); POTASSIUM 4.6 mmol/L (3.5-5.1); SGOT/AST 14 U/L (15-37); SGPT/ALT 14 U/L (13-61); SODIUM 143 mmol/L (136-145); TOT PROT 7.4 g/dl (6.4-8.2)
[2018-06-02 05:13] LABS: URINE APPEARANCE CLEAR; URINE BILIRUBIN NEGATIVE (<2.0 mg/dL); URINE COLOR LTYELLOW; URINE GLUCOSE (UA) NEGATIVE (NEGATIVE); URINE KETONE NEGATIVE (NEGATIVE); URINE LEUK ESTERASE NEGATIVE (NEGATIVE); URINE NITRITE NEGATIVE (NEGATIVE); URINE PROTEIN NEGATIVE (NEGATIVE); URINE UROBILINOGEN NEGATIVE mg/dL (0.2-1.0)
[2018-06-02 05:19] VITALS: PULSE 62
[2018-06-02 05:21] VITALS: BP 115/76
== END 2018-06-02 06:00 | disposition home or self-care (01) ==
LOC: JER 02:18
PROC: 3E033NZ Introduction of Analgesics, Hypnotics, Sedatives into Peripheral Vein, Percutaneous Approach (ICD-10-PCS; principal; 2018-06-02)
PROC: 3E033GC Introduction of Other Therapeutic Substance into Peripheral Vein, Percutaneous Approach (ICD-10-PCS; 2018-06-02)
PROC: 3E033GC Introduction of Other Therapeutic Substance into Peripheral Vein, Percutaneous Approach (ICD-10-PCS; 2018-06-02)
DX: K80.20 Calculus of gallbladder without cholecystitis without obstruction (principal); E66.01 Morbid (severe) obesity due to excess calories; Z68.42 Body mass index [BMI] 45.0-49.9, adult; Z98.84 Bariatric surgery status; K80.50 Calculus of bile duct without cholangitis or cholecystitis without obstruction; Z87.39 Personal history of other diseases of the musculoskeletal system and connective tissue
CPT/HCPCS: 36415; 76705-TC; 76775-TC; 80053; 81003; 83690; 84703; 85025; 85610; 96374; 96375; 99283-25; J7030

== ENCOUNTER 2018-10-22 19:23 | Emergency (ER) | payer OTHER ==
[2018-10-22 19:47] VITALS: BP 160/85; PULSE 62; TEMP 98.3; BMI 54.5
[2018-10-22] MEDS ORDERED: ALBUTEROL SO4 2.5/IPRATROPIUM 0.5 INH SOL 3 ML VIAL.NEB. NEB ONE (19:48)
--- NOTE | 2018-10-22 19:48 | PDOC ---
Rapid Medical Evaluation Time Seen by Provider: 10/22/18 19:44 Medical Evaluation: Allergies Allergy/AdvReac Type Severity Reaction Status Date / Time erythromycin base Allergy Mild Hives Verified 10/22/18 19:44 [Erythromycin Base] I have performed a brief in-person evaluation of this patient. The patient presents with a chief complaint of: SOB x 2 weeks, chest tightness; has hx of asthma (never intubated); also c/o fever, cough with phlegm; took Tylenol prior to coming Pertinent physical exam findings: appears slightly tachypneic, lungs clear I have ordered the following: CXR, duoneb, labs The patient will proceed to the ED for further evaluation. 10/22/18 19:44
[2018-10-22 20:34] LABS: BASO % 1.2 % (0-2.0); EOS % 2.6 % (0-4.5); HEMATOCRIT 33.2 % (32.4-45.2); LYMPH % 23.1 % (8-40); MCH 24.9 pg (25.7-33.7); MEAN CELL VOLUME 75.4 fl (80-96); MONO % 7.1 % (3.8-10.2); PLATELET COUNT 408 K/MM3 (134-434); RDW 16.2 % (11.6-15.6); WHITE BLOOD COUNT 8.8 K/mm3 (4.0-10.0)
[2018-10-22 21:02] LABS: ANION GAP 6 MMOL/L (8-16); BLOOD UREA NITROGEN 9 mg/dL (7-18); CALCIUM 8.2 mg/dL (8.5-10.1); CHLORIDE 106 mmol/L (98-107); CO2 26 mmol/L (21-32); CREATININE 0.6 mg/dL (0.55-1.3); GLUCOSE,RANDOM 86 mg/dL (74-106); POTASSIUM 4.4 mmol/L (3.5-5.1); SODIUM 139 mmol/L (136-145)
--- NOTE | 2018-10-22 22:12 | PDOC ---
*Physical Exam - Vital Signs Last Vital Signs Temp Pulse Resp BP Pulse Ox 98.3 F 62 24 H 160/85 98 10/22/18 19:45 10/22/18 19:45 10/22/18 19:45 10/22/18 19:45 10/22/18 19:45 ED Treatment Course - LABORATORY CBC & Chemistry Diagram: 10/22/18 20:22 10/22/18 20:22 - ADDITIONAL ORDERS Additional order review: Laboratory Results 10/22/18 20:22 Sodium 139 Potassium 4.4 Chloride 106 Carbon Dioxide 26 Anion Gap 6 L BUN 9 Creatinine 0.6 Creat Clearance w eGFR > 60 Random Glucose 86 Calcium 8.2 L 10/22/18 20:22 RBC 4.40 MCV 75.4 L MCHC 33.0 RDW 16.2 H MPV 8.0 Neutrophils % 66.0 Lymphocytes % 23.1 D Monocytes % 7.1 Eosinophils % 2.6 Basophils % 1.2 D - Medications Given in the ED: ED Medications Discontinued Medications Generic Name Dose Route Start Last Admin Trade Name Freq PRN Reason Stop Dose Admin Albuterol/Ipratropium 1 amp 10/22/18 19:48 10/22/18 20:35 Duoneb - NEB 10/22/18 19:49 1 amp ONCE ONE Administration Medical Decision Making - Medical Decision Making 10/22/18 22:12 Patient seen by the advanced practice provider under my direct supervision. Ancillary testing reviewed as necessary. I agree with plan as outlined by the advanced practice provider. *DC/Admit/Observation/Transfer Diagnosis at time of Disposition: URI (upper respiratory infection) Qualifiers: URI type: unspecified viral URI Qualified Code(s): J06.9 - Acute upper respiratory infection, unspecified - Discharge Dispostion Disposition: HOME Condition at time of disposition: Stable - Prescriptions Prescriptions: Albuterol 0.083% Nebulizer Ayala [Ventolin 0.083% Nebulizer Soln -] 1 neb NEB Q4H #90 vial - Referrals Referrals: Emelia Mulligan [Primary Care Provider] - - Patient Instructions Additional Instructions: Rest, drink lots of fluids: Teas, water, soups, Pedialyte Saltwater gargles Steamy showers/seem to face break up mucus Avoid contact with others until fevers and cough resolved Lots of handwashing and good hygiene Continue [id number] medications for symptomatic relief Tylenol or Motrin for fever and pain Followup with private physician in one to 2 days as needed Return to emergency department for worsened symptoms, fevers, dehydration - Post Discharge Activity Forms/Work/School Notes: Back to Work
--- NOTE | 2018-10-22 22:14 | PDOC ---
History of Present Illness - General Chief Complaint: Shortness of Breath Stated Complaint: SOB Time Seen by Provider: 10/22/18 19:44 History Source: Patient Exam Limitations: No Limitations - History of Present Illness Initial Comments: 10/22/18 22:09 HISTORY OF PRESENT ILLNESS: This is a 48-year-old woman past medical history of asthma without intubations and polyneuropathy presents emergency Department for evaluation of cough, fevers, shortness of breath for the past 3 weeks. Patient reports she fell as she had a upper respiratory infection has been treating herself with symptomatic treatment with minimal relief of results. Patient given herself a of-year-old the visualized treatment prior to arrival which made her breathing feel easier. She has received laboratory testing and nebulizer treatments in rapid medical evaluation upon initial evaluation reports her breathing is easier. She denies chest pain, nausea, vomiting. Patient also reports having urinary frequency and dysuria over these 3 weeks. No recent travel or sick contacts. PAST MEDICAL HISTORY: see HPI SURGICAL HISTORY: Denies ALLERGIES: EES REVIEW OF SYSTEMS General/Constitutional: (+)fever. Denies chills. Denies weakness, weight change. HEENT: Denies change in vision. Denies ear pain or discharge. Denies sore throat. Cardiovascular: Denies chest pain. (+)shortness of breath. Respiratory: Denies cough, wheezing, or hemoptysis. Gastrointestinal: Denies nausea, vomiting, diarrhea or constipation. Denies rectal bleeding. Genitourinary: see hpi Musculoskeletal: Denies joint or muscle swelling or pain. Denies neck or back pain. Skin and breasts: Denies rash or easy bruising. Neurologic: Denies headache, vertigo, loss of consciousness, or loss of sensation. Psychiatric: Denies depression or anxiety. Endocrine: Denies increased thirst. Denies abnormal weight change. Hematologic/Lymphatic: Denies anemia, easy bleeding, or history of blood clots. Allergic/Immunologic: Denies hives or skin allergy. Denies latex allergy. PHYSICAL EXAM General Appearance: Well-appearing, appropriately dressed. No apparent distress , no intoxication. HEENT: EOMI, PERRLA, normal ENT inspection, normal voice, TMs normal, pharynx normal. No conjunctival pallor. No photophobia, scleral icterus. Neck: Supple. Trachea midline. No tenderness, rigidity, carotid bruit, stridor , lymphadenopathy, or thyromegaly. Respiratory/Chest: Lungs CTAB. No shortness of breath, chest tenderness, respiratory distress, accessory muscle use. No crackles, rales, rhonchi, stridor , wheezing, dullness. Cardiovascular: RRR. S1, S2. No JVD, murmur, bradycardia, tachycardia. Vascular Pulses: Dorsalis-Pedis (R): 2+, Dorsalis-Pedis (L): 2+ Gastrointestinal/Abdominal: Normal bowel sounds. Abdomen soft, non-distended. No tenderness or rebound tenderness. No organomegaly, pulsatile mass, guarding, hernia, hepatomegaly, splenomegaly. Lymphatic: No adenopathy, tenderness. Musculoskeletal/Extremities: Normal inspection. FROM of all extremities, normal capillary refill. Pelvis Stable. Right CVA tenderness. No tenderness to extremities, pedal edema, swelling, erythema or deformity. Integumentary: Appropriate color, dry, warm. 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 Fully oriented, alert. Appropriate mood/affect. Motor strength 5/5. No appreciable EOM palsy, facial droop or sensory deficit. Past History - Past Medical History Allergies/Adverse Reactions: Allergies Allergy/AdvReac Type Severity Reaction Status Date / Time erythromycin base Allergy Mild Hives Verified 10/22/18 19:44 [Erythromycin Base] Home Medications: Ambulatory Orders clonazePAM [Klonopin -] 0.5 mg PO HS PRN 11/07/11 Pregabalin [Lyrica -] 25 mg PO BID 12/10/14 Meloxicam [Mobic] 15 mg PO DAILY 06/24/16 Omeprazole 20 mg PO DAILY 06/24/16 Lisinopril/Hydrochlorothiazide [Lisinopril-Hctz 20-25 mg Tab] 1 each PO DAILY Cyclobenzaprine HCl [Flexeril 10 mg] 10 mg PO BID PRN #10 tablet 08/15/17 Ibuprofen 800 mg PO TID #30 tablet 04/13/18 Oxycodone HCl/Acetaminophen [Percocet 5-325 mg Tablet] 1 tab PO Q6H PRN #10 tablet MDD 4 04/13/18 Albuterol 0.083% Nebulizer Ayala [Ventolin 0.083% Nebulizer Soln -] 1 neb NEB Q4H #90 vial 10/23/18 Anemia: Yes Asthma: Yes COPD: No Dementia: No Diabetes: No - Surgical History Abdominal Surgery: Yes (Stomach lesion, fistula repair) Gastric Stapling: Yes (x2) Lung Surgery: Yes (L lung lesion) - Immunization History Immunization Up to Date: Yes - Suicide/Smoking/Psychosocial Hx Smoking Status: No Smoking History: Never smoked Have you smoked in the past 12 months: No Number of Cigarettes Smoked Daily: 0 Hx Alcohol Use: No Drug/Substance Use Hx: No Substance Use Type: None Hx Substance Use Treatment: No *Physical Exam - Vital Signs Last Vital Signs Temp Pulse Resp BP Pulse Ox 98.3 F 62 24 H 160/85 98 10/22/18 19:45 10/22/18 19:45 10/22/18 19:45 10/22/18 19:45 10/22/18 19:45 Moderate Sedation - Procedure Monitoring Vital Signs: Procedure Monitoring Vital Signs Temperature 98.3 F 10/22/18 19:45 Pulse Rate 62 10/22/18 19:45 Respiratory Rate 24 H 10/22/18 19:45 Blood Pressure 160/85 10/22/18 19:45 O2 Sat by Pulse Oximetry (%) 98 10/22/18 19:45 ED Treatment Course - LABORATORY CBC & Chemistry Diagram: 10/22/18 20:22 10/22/18 20:22 - ADDITIONAL ORDERS Additional order review: Laboratory Results 10/22/18 20:22 Sodium 139 Potassium 4.4 Chloride 106 Carbon Dioxide 26 Anion Gap 6 L BUN 9 Creatinine 0.6 Creat Clearance w eGFR > 60 Random Glucose 86 Calcium 8.2 L 10/22/18 20:22 RBC 4.40 MCV 75.4 L MCHC 33.0 RDW 16.2 H MPV 8.0 Neutrophils % 66.0 Lymphocytes % 23.1 D Monocytes % 7.1 Eosinophils % 2.6 Basophils % 1.2 D - Medications Given in the ED: ED Medications Discontinued Medications Generic Name Dose Route Start Last Admin Trade Name Freq PRN Reason Stop Dose Admin Albuterol/Ipratropium 1 amp 10/22/18 19:48 10/22/18 20:35 Duoneb - NEB 10/22/18 19:49 1 amp ONCE ONE Administration Medical Decision Making - Medical Decision Making 10/22/18 22:13 A/P: 48-year-old woman with upper respiratory and UTI symptoms for 3 weeks PERC-0 Urine, labs, chest x-ray, DuoNeb's, reassess 10/23/18 00:44 Urinalysis unremarkable. Laboratory testing is unremarkable. Chest x-rays read by Dr. Avila: Unremarkable examination without evidence of acute lung disease. Patient reports after receiving nebulizer treatments finds it easier to breathe. I'll discharge the patient home with a prescription for albuterol nebulizer solution. I discussed the physical exam findings, ancillary test results and final diagnoses with the patient. I answered all of the patient's questions. The patient was satisfied with the care received and felt comfortable with the discharge plan and treatment plan. The patient will call their primary care physician within 24 hours to arrange follow-up and will return to the Emergency Department with any new, persistent or worsening symptoms. *DC/Admit/Observation/Transfer Diagnosis at time of Disposition: URI (upper respiratory infection) Qualifiers: URI type: unspecified viral URI Qualified Code(s): J06.9 - Acute upper respiratory infection, unspecified - Discharge Dispostion Disposition: HOME Condition at time of disposition: Stable Decision to Admit order: No - Prescriptions Prescriptions: Albuterol 0.083% Nebulizer Ayala [Ventolin 0.083% Nebulizer Soln -] 1 neb NEB Q4H #90 vial - Referrals Referrals: Emelia Mulligan [Primary Care Provider] - - Patient Instructions Additional Instructions: Rest, drink lots of fluids: Teas, water, soups, Pedialyte Saltwater gargles Steamy showers/seem to face break up mucus Avoid contact with others until fevers and cough resolved Lots of handwashing and good hygiene Continue [id number] medications for symptomatic relief Tylenol or Motrin for fever and pain Followup with private physician in one to 2 days as needed Return to emergency department for worsened symptoms, fevers, dehydration - Post Discharge Activity Forms/Work/School Notes: Back to Work
[2018-10-22 22:32] LABS: URINE APPEARANCE CLEAR; URINE BILIRUBIN NEGATIVE (<2.0 mg/dL); URINE COLOR STRAW; URINE GLUCOSE (UA) NEGATIVE (NEGATIVE); URINE KETONE NEGATIVE (NEGATIVE); URINE LEUK ESTERASE NEGATIVE (NEGATIVE); URINE NITRITE NEGATIVE (NEGATIVE); URINE PROTEIN NEGATIVE (NEGATIVE); URINE UROBILINOGEN NEGATIVE mg/dL (0.2-1.0)
== END 2018-10-23 00:58 | disposition home or self-care (01) ==
LOC: JER 19:23
PROC: 3E0F7GC Introduction of Other Therapeutic Substance into Respiratory Tract, Via Natural or Artificial Opening (ICD-10-PCS; principal; 2018-10-22)
DX: J06.9 Acute upper respiratory infection, unspecified (principal); Z87.09 Personal history of other diseases of the respiratory system
CPT/HCPCS: 36415; 71046-TC-FY; 80048; 81003; 84703; 85025; 87086; 94640; 99283-25

== ENCOUNTER 2018-11-19 19:45 | Emergency (ER) | payer OTHER ==
[2018-11-19] MEDS ORDERED: KETOROLAC TROMETHAMINE 30 MG/1 ML VIAL IM ONE (19:51)
--- NOTE | 2018-11-19 19:51 | PDOC ---
Rapid Medical Evaluation Chief Complaint: Back Pain Time Seen by Provider: 11/19/18 19:49 Medical Evaluation: Allergies Allergy/AdvReac Type Severity Reaction Status Date / Time erythromycin base Allergy Mild Hives Verified 10/22/18 19:44 [Erythromycin Base] 11/19/18 19:50 I have performed a brief in-person evaluation of this patient. The patient presents with a chief complaint of: back pain x 3 days. Patient reports chronic back pain sent to ed for pain medication. States pain radiates down both thighs. Pertinent physical exam findings: NAD even and unlabored breathing unable to sit I have ordered the following: analgesia The patient will proceed to the ED for further evaluation.
[2018-11-19 19:53] VITALS: TEMP 97.8; BMI 56.1
--- NOTE | 2018-11-19 21:42 | PDOC ---
History of Present Illness - General Chief Complaint: Back Pain Stated Complaint: BACK PAIN Time Seen by Provider: 11/19/18 19:49 History Source: Patient - History of Present Illness Initial Comments: 11/19/18 21:47 48 year old female lower back painAnd numbness to bilateral lower extremities. Patient reports that she normally has some numbness noted increased numbness today. Denies incontinence of bowel or urine. Patient has a history of polyneuropathy, Guillian barre syndrome, bariatic surgery, chronic back pain. \ Patient is closely followed by neurology and had spinal injections in the past for pain control 11/20/18 00:50 Past History - Past Medical History Allergies/Adverse Reactions: Allergies Allergy/AdvReac Type Severity Reaction Status Date / Time erythromycin base Allergy Mild Hives Verified 11/19/18 19:53 [Erythromycin Base] Home Medications: Ambulatory Orders Pregabalin [Lyrica -] 100 mg PO BID 12/10/14 Meloxicam [Mobic] 15 mg PO DAILY 06/24/16 Omeprazole 20 mg PO DAILY 06/24/16 Lisinopril/Hydrochlorothiazide [Lisinopril-Hctz 20-25 mg Tab] 1 each PO DAILY Albuterol 0.083% Nebulizer Ayala [Ventolin 0.083% Nebulizer Soln -] 1 neb NEB Q4H #90 vial 10/23/18 Tramadol HCl 50 mg PO TID PRN #10 tablet MDD 3 11/20/18 Anemia: Yes Asthma: Yes COPD: No Dementia: No Diabetes: No - Surgical History Abdominal Surgery: Yes (Stomach lesion, fistula repair) Gastric Stapling: Yes (x2) Lung Surgery: Yes (L lung lesion) Neurologic Surgery: Yes (polyneuropathy) Orthopedic Surgery: Yes (KNEE SX, BUNION SX) - Immunization History Immunization Up to Date: Yes - Suicide/Smoking/Psychosocial Hx Smoking Status: No Smoking History: Never smoked Have you smoked in the past 12 months: No Number of Cigarettes Smoked Daily: 0 Information on smoking cessation initiated: No Hx Alcohol Use: No Drug/Substance Use Hx: No Substance Use Type: None Hx Substance Use Treatment: No Review of Systems - Review of Systems Able to Perform ROS?: Yes Is the patient limited Korean proficient: No Musculoskeletal: Yes: Back Pain Neurological: Yes: Numbness. No: Symptoms reported, See HPI, Headache, Paresthesia, Pre-Existing Deficit, Seizure, Tingling, Tremors, Weakness, Unsteady Gait, Ataxia, Dizziness, Other *Physical Exam - Vital Signs Last Vital Signs Temp Pulse Resp BP Pulse Ox 97.8 F 107 H 16 176/111 H 100 11/19/18 19:50 11/19/18 19:50 11/19/18 19:50 11/19/18 19:50 11/19/18 19:50 Moderate Sedation - Procedure Monitoring Vital Signs: Procedure Monitoring Vital Signs Temperature 97.8 F 11/19/18 19:50 Pulse Rate 107 H 11/19/18 19:50 Respiratory Rate 16 11/19/18 19:50 Blood Pressure 176/111 H 11/19/18 19:50 O2 Sat by Pulse Oximetry (%) 100 11/19/18 19:50 Medical Decision Making - Medical Decision Making 11/20/18 00:[address] yao. recommends pain control and will follow up outpatient neurology. 11/20/18 01:02 Patient reports feeling better. Advised patient to follow up with Dr. Yao this week. Patient is advised to return to the emergency room for any worsening symptoms. *DC/Admit/Observation/Transfer Diagnosis at time of Disposition: Lumbar radiculopathy - Discharge Dispostion Disposition: HOME - Prescriptions Prescriptions: Tramadol HCl 50 mg PO TID PRN #10 tablet MDD 3 PRN Reason: Pain - Referrals Referrals: Matt Yao MD [Staff Physician] - Call tomorrow - Patient Instructions Printed Discharge Instructions: Lumbar Radiculopathy Additional Instructions: please follow up with Dr. yao take ibuprofen every 6 hours as needed for pain take tramadol for severe pain Additional Instructions: * Please call your personal physician to report your Emergency Department visit and to report your progress, if any. * If there is no improvement in symptoms in 2 days call your physician. * Return to the Emergency Department for any worsening symptoms. - Post Discharge Activity
--- NOTE | 2018-11-19 21:49 | PDOC ---
*Physical Exam - Vital Signs Last Vital Signs Temp Pulse Resp BP Pulse Ox 97.8 F 107 H 16 176/111 H 100 11/19/18 19:50 11/19/18 19:50 11/19/18 19:50 11/19/18 19:50 11/19/18 19:50 Medical Decision Making - Medical Decision Making 11/19/18 21:49 Patient seen by the advanced practice provider under my direct supervision. Ancillary testing reviewed as necessary. I agree with plan as outlined by the advanced practice provider. *DC/Admit/Observation/Transfer Diagnosis at time of Disposition: Lumbar radiculopathy - Referrals - Patient Instructions - Post Discharge Activity
[2018-11-19] MEDS ORDERED: diazePAM 5 MG TABLET PO ONE (21:52)
[2018-11-19 23:07] LABS: HCG,QUALITATIVE URINE Negative
[2018-11-19] MEDS ORDERED: KETOROLAC TROMETHAMINE 30 MG/1 ML VIAL ONE (23:18)
[2018-11-19] MEDS ORDERED: diazePAM 5 MG TABLET ONE (23:18)
[2018-11-19 23:22] LABS: URINE APPEARANCE CLEAR; URINE BILIRUBIN NEGATIVE (<2.0 mg/dL); URINE COLOR YELLOW; URINE GLUCOSE (UA) NEGATIVE (NEGATIVE); URINE KETONE NEGATIVE (NEGATIVE); URINE LEUK ESTERASE NEGATIVE (NEGATIVE); URINE NITRITE NEGATIVE (NEGATIVE); URINE PROTEIN NEGATIVE (NEGATIVE); URINE UROBILINOGEN NEGATIVE mg/dL (0.2-1.0)
[2018-11-20 01:54] VITALS: BP 162/91; PULSE 89
== END 2018-11-20 01:54 | disposition home or self-care (01) ==
LOC: JER 19:45
PROC: 3E0233Z Introduction of Anti-inflammatory into Muscle, Percutaneous Approach (ICD-10-PCS; principal; 2018-11-19)
DX: M54.16 Radiculopathy, lumbar region (principal); J45.909 Unspecified asthma, uncomplicated; D64.9 Anemia, unspecified
CPT/HCPCS: 72131-TC; 81003; 84703; 87086; 96372; 99282-25

== ENCOUNTER 2019-01-01 15:31 | Inpatient (IN) | payer OTHER ==
--- NOTE | 2019-01-01 15:35 | PDOC ---
Rapid Medical Evaluation Chief Complaint: Respiratory Time Seen by Provider: 01/01/19 15:32 Medical Evaluation: Allergies Allergy/AdvReac Type Severity Reaction Status Date / Time erythromycin base Allergy Mild Hives Verified 11/19/18 19:53 [Erythromycin Base] 01/01/19 15:33 I did a brief in person evaluation on this patient. CC: Cough x 8 days HPI: Pt was sent by her PCP to see Dr. Hester due to cough x 8 days. Pt has been on Levaquin, denies sick contacts and denies recent travel. PE: Skin: Clear Lungs: Clear Heart:RRR MS: Moves all extremities without difficulty Neuro: alert Psych: appropriate affect. I have ordered: nothing at this time as her PCP note states she is to be evaluation by Dr. Hester Pt will proceed to main ED for further evaluation. Discharge Disposition - Diagnosis Respiratory illness - Referrals - Patient Instructions - Post Discharge Activity
[2019-01-01 16:16] LABS: BASO % 1.1 % (0-2.0); EOS % 0.5 % (0-4.5); HEMATOCRIT 34.1 % (32.4-45.2); LYMPH % 27.4 % (8-40); MCH 23.8 pg (25.7-33.7); MCHC 32.2 g/dl (32.0-36.0); MEAN CELL VOLUME 73.9 fl (80-96); MEAN PLT VOLUME 8.1 fl (7.5-11.1); MONO % 7.8 % (3.8-10.2); NEUT % 63.2 % (42.8-82.8); PLATELET COUNT 348 K/MM3 (134-434); RBC 4.61 M/mm3 (3.60-5.2); RDW 18.1 % (11.6-15.6); WHITE BLOOD COUNT 4.7 K/mm3 (4.0-10.0)
[2019-01-01 16:34] LABS: ALBUMIN 3.3 g/dl (3.4-5.0); ALK PHOS 79 U/L (45-117); ANION GAP 7 MMOL/L (8-16); BILIRUBIN,TOTAL 0.2 mg/dL (0.2-1); BLOOD UREA NITROGEN 8 mg/dL (7-18); CALCIUM 8.4 mg/dL (8.5-10.1); CHLORIDE 106 mmol/L (98-107); CO2 26 mmol/L (21-32); CREATININE 0.6 mg/dL (0.55-1.3); GLUCOSE,RANDOM 98 mg/dL (74-106); POTASSIUM 3.9 mmol/L (3.5-5.1); SGOT/AST 23 U/L (15-37); SGPT/ALT 17 U/L (13-61); SODIUM 138 mmol/L (136-145); TOT PROT 7.9 g/dl (6.4-8.2)
[2019-01-01] MEDS ORDERED: ALBUTEROL SO4 2.5/IPRATROPIUM 0.5 INH SOL 3 ML VIAL.NEB. NEB ONE ×2 (17:17→17:19)
[2019-01-01] MEDS ORDERED: CEFTRIAXONE 1,000 MG in DEXTROSE 5%-WATER - 50 ML IVPB ONE (19:33)
[2019-01-01] MEDS ORDERED: CEFTRIAXONE 1 GM/50 ML BAG ONE (19:41)
[2019-01-01] MEDS ORDERED: ACETAMINOPHEN 1000 MG/100 ML VIAL (NON FORMULARY) IVPB ONE (19:54)
--- NOTE | 2019-01-01 20:01 | PDOC ---
History of Present Illness - General Chief Complaint: Respiratory Stated Complaint: SENT BY PCP Time Seen by Provider: 01/01/19 15:32 History Source: Patient Exam Limitations: No Limitations - History of Present Illness Initial Comments: 01/01/19 19:58 48F with a PMH of asthma who presents with 8 days of cough. Pt states that she was treated for PNA on 12/14/18 with 7 days of levaquin. She has had intermittent fevers and cough since then. She admits to SOB but denies wheezing, CP, diaphoresis, nausea, and vomiting. She denies abd pain, dysuria, headache, and sore throat. Past History - Past Medical History Allergies/Adverse Reactions: Allergies Allergy/AdvReac Type Severity Reaction Status Date / Time erythromycin base Allergy Mild Hives Verified 01/01/19 15:34 [Erythromycin Base] Home Medications: Ambulatory Orders Pregabalin [Lyrica -] 100 mg PO BID 12/10/14 Meloxicam [Mobic] 15 mg PO DAILY 06/24/16 Omeprazole 20 mg PO DAILY 06/24/16 Lisinopril/Hydrochlorothiazide [Lisinopril-Hctz 20-25 mg Tab] 1 each PO DAILY Albuterol 0.083% Nebulizer Ayala [Ventolin 0.083% Nebulizer Soln -] 1 neb NEB Q4H #90 vial 10/23/18 Tramadol HCl 50 mg PO TID PRN #10 tablet MDD 3 11/20/18 Anemia: Yes Asthma: Yes COPD: No Dementia: No Diabetes: No - Surgical History Abdominal Surgery: Yes (Stomach lesion, fistula repair) Gastric Stapling: Yes (x2) Lung Surgery: Yes (L lung lesion) Neurologic Surgery: Yes (polyneuropathy) Orthopedic Surgery: Yes (KNEE SX, BUNION SX) - Immunization History Immunization Up to Date: Yes - Suicide/Smoking/Psychosocial Hx Smoking Status: No Smoking History: Never smoked Have you smoked in the past 12 months: No Number of Cigarettes Smoked Daily: 0 Hx Alcohol Use: No Drug/Substance Use Hx: No Substance Use Type: None Hx Substance Use Treatment: No Review of Systems - Review of Systems Able to Perform ROS?: Yes Comments:: 01/01/19 20:00 GENERAL/CONSTITUTIONAL: + for fever and rigors. No weakness. HEAD, EYES, EARS, NOSE AND THROAT: No change in vision. No ear pain or discharge. No sore throat. CARDIOVASCULAR: No chest pain, palpitations, or lightheadedness. RESPIRATORY: + for cough and SOB. No wheezing or hemoptysis. GASTROINTESTINAL: No nausea, vomiting, diarrhea, constipation, or abdominal pain. GENITOURINARY: No dysuria, frequency, hematuria, or change in urination. MUSCULOSKELETAL: No joint or muscle swelling or pain. No neck or back pain. SKIN: No rash or lesions. NEUROLOGIC: No headache, numbness, tingling, focal weakness, loss of consciousness, or change in strength/sensation. Is the patient limited Telugu proficient: No *Physical Exam - Vital Signs Last Vital Signs Temp Pulse Resp BP Pulse Ox 98.9 F 88 20 146/110 H 96 01/01/19 15:32 01/01/19 15:32 01/01/19 15:32 01/01/19 15:32 01/01/19 16:37 - Physical Exam Comments: 01/01/19 20:00 GENERAL: Well developed, well nourished. Awake and alert. No acute distress. HEENT: Normocephalic, atraumatic. Hearing grossly normal. Moist mucous membranes. PERRLA, EOMI. No conjunctival pallor. Sclera are non-icteric. NECK: Supple. Full ROM. No JVD. CARDIOVASCULAR: Regular rate and rhythm. No murmurs, rubs, or gallops. PULMONARY: Mild respiratory distress but speaking in full sentences. Lungs clear to auscultation bilaterally. No wheezing, rales or rhonchi. ABDOMINAL: Soft. Non-tender. Non-distended. No rebound or guarding. GENITOURINARY: No CVA tenderness bilaterally. MUSCULOSKELETAL: Normal range of motion at all joints. No bony deformities or tenderness. EXTREMITIES: No cyanosis. No clubbing. No edema. No calf tenderness or swelling. SKIN: Warm and dry. Normal capillary refill. No rashes. No jaundice. NEUROLOGICAL: Alert, awake, appropriate. Cranial nerves 2-12 grossly intact. Normal speech. Gait is normal without ataxia. PSYCHIATRIC: Cooperative. Good eye contact. Appropriate mood and affect. ED Treatment Course - LABORATORY CBC & Chemistry Diagram: 01/01/19 15:51 01/01/19 15:51 - ADDITIONAL ORDERS Additional order review: Laboratory Results 01/01/19 15:51 Sodium 138 Potassium 3.9 Chloride 106 Carbon Dioxide 26 Anion Gap 7 L BUN 8 Creatinine 0.6 Creat Clearance w eGFR 106.25 Random Glucose 98 Calcium 8.4 L Total Bilirubin 0.2 AST 23 ALT 17 Alkaline Phosphatase 79 Total Protein 7.9 Albumin 3.3 L 01/01/19 15:51 RBC 4.61 MCV 73.9 L MCHC 32.2 RDW 18.1 H MPV 8.1 Neutrophils % 63.2 Lymphocytes % 27.4 Monocytes % 7.8 Eosinophils % 0.5 D Basophils % 1.1 - Medications Given in the ED: ED Medications Discontinued Medications Generic Name Dose Route Start Last Admin Trade Name Freq PRN Reason Stop Dose Admin Albuterol/Ipratropium 3 amp 01/01/19 17:17 01/01/19 17:24 Duoneb - NEB 01/01/19 17:18 3 amp ONCE ONE Administration Medical Decision Making - Medical Decision Making 01/01/19 17:56 48F with a PMH of asthma who presents febrile with a cough concerning for PNA. CXR shows possible infiltrate in LLL. Given duonebs for symptomatic treatment. Ceftriaxone ordered. Pt noted to be SOB while having a discussion with me. 01/01/19 20:01 Pt noted to have 101 temperature. 01/01/19 20:[address] Bourgeois for further care. *DC/Admit/Observation/Transfer Diagnosis at time of Disposition: Respiratory illness - Referrals Referrals: Emelia Mulligan [Primary Care Provider] - - Patient Instructions - Post Discharge Activity
--- NOTE | 2019-01-01 20:05 | PDOC ---
*Physical Exam - Vital Signs Last Vital Signs Temp Pulse Resp BP Pulse Ox 98.9 F 88 20 146/110 H 96 01/01/19 15:32 01/01/19 15:32 01/01/19 15:32 01/01/19 15:32 01/01/19 16:37 ED Treatment Course - LABORATORY CBC & Chemistry Diagram: 01/01/19 15:51 01/01/19 15:51 - ADDITIONAL ORDERS Additional order review: Laboratory Results 01/01/19 15:51 Sodium 138 Potassium 3.9 Chloride 106 Carbon Dioxide 26 Anion Gap 7 L BUN 8 Creatinine 0.6 Creat Clearance w eGFR 106.25 Random Glucose 98 Calcium 8.4 L Total Bilirubin 0.2 AST 23 ALT 17 Alkaline Phosphatase 79 Total Protein 7.9 Albumin 3.3 L 01/01/19 15:51 RBC 4.61 MCV 73.9 L MCHC 32.2 RDW 18.1 H MPV 8.1 Neutrophils % 63.2 Lymphocytes % 27.4 Monocytes % 7.8 Eosinophils % 0.5 D Basophils % 1.1 - Medications Given in the ED: ED Medications Discontinued Medications Generic Name Dose Route Start Last Admin Trade Name Freq PRN Reason Stop Dose Admin Albuterol/Ipratropium 3 amp 01/01/19 17:17 01/01/19 17:24 Duoneb - NEB 01/01/19 17:18 3 amp ONCE ONE Administration Medical Decision Making - Medical Decision Making The pt is a 48F w/ a history of guillain-brush syndrome, s/p gastric sleeve, and asthma who presented for 8 days of cough. Pt reports she was treated for PNA on 12/14/18 with 7 days of levaquin. Pt not initially febrile on presentation Noted to be febrile to 101 -Will order sepsis w/u CXR Impression: Probable small left basilar infiltrate. -pt failed outpt abx -Ceftriaxone ordered 01/01/19 19:59 Plan for admission for IV abx for PNA No leukocytosis No anemia Lytes wnl No RAND Trop I neg Dispo: admit *DC/Admit/Observation/Transfer Diagnosis at time of Disposition: Respiratory illness Pneumonia Qualifiers: Pneumonia type: due to unspecified organism Laterality: unspecified laterality Lung location: unspecified part of lung Qualified Code(s): J18.9 - Pneumonia, unspecified organism Sepsis Qualifiers: Sepsis type: sepsis due to unspecified organism Qualified Code(s): A41.9 - Sepsis, unspecified organism - Discharge Dispostion Condition at time of disposition: Good Decision to Admit order: Yes - Referrals - Patient Instructions - Post Discharge Activity
[2019-01-01] MEDS ORDERED: ACETAMINOPHEN INJECTION 100 ML IVPB ONE (20:59)
[2019-01-01] MEDS ORDERED: DOXYCYCLINE INJECTION 100 MG in DEXTROSE 5%-WATER - 100 ML IVPB ONE (21:46)
[2019-01-01] MEDS ORDERED: DOXYCYCLINE HYCLATE 100 MG VIAL ONE (22:30)
[2019-01-01] MEDS ORDERED: SODIUM CHLORIDE 0.9% 500 ML INFUS.BAG IV ONE (22:38)
[2019-01-02] MEDS ORDERED: PREGABALIN 100 MG CAPSULE ONE (00:58)
[2019-01-02] MEDS: PREGABALIN 50 MG CAPSULE PO SCH ×3 (01:03→21:29)
--- NOTE | 2019-01-02 01:37 | PDOC ---
Documentation entered by Manuel Martinez SCRIBE, acting as scribe for Heather Phelan MD. Heather hPelan MD: This documentation has been prepared by the Michelle soliz Renju, SCRIBE, under my direction and personally reviewed by me in its entirety. I confirm that the documentation accurately reflects all work, treatment, procedures, and medical decision making performed by me. Attending Attestation - Resident Resident Name: Constantin Jones - ED Attending Attestation I have performed the following: I have examined & evaluated the patient, The case was reviewed & discussed with the resident, I agree w/resident's findings & plan, Exceptions are as noted - HPI HPI: 01/01/19 18:18 The patient is a 48 year old female with a past medical history of asthma and polymyalgia rheumatica who presents to the emergency department for evaluation of an 8 day history of worsening cough and a 1 day history of fever. Patient reports worsening cough which she saw her PCP for on 12/14/18 which she received levaquin. She reports taking levaquin for 1 week, and states she felt worse afterwards. Today, patient reports visiting her PCP this morning and was found to have a fever. She states her PCP prompted her to visit the ED for further evaluation. PCP: Dr. Emelia Mulligan. - Physicial Exam PE: 01/01/19 22:46 obese 48-year-old female presents with fever and cough head ncat eyes noble eomi neck supple lungs rhonchi cvs tachycardia abd protuberant extremities no edema ,no erythema skin warm and dry neuro axox3,ambulatory psych appropriate - Medical Decision Making 01/01/19 18:07 48-year-old female who has had a cough for 8 days. Presents because of persistent cough. Past medical history asthma, probably myalgia rheumatica cxr left basilar infiltrate pt is febrile ,tachypnic and being treated for PNA,pt admitted 01/01/19 22:49 01/01/19 22:50
[2019-01-02 07:16] LABS: HEMATOCRIT 31.2 % (32.4-45.2); HEMOGLOBIN 9.9 GM/dL (10.7-15.3); MCH 23.2 pg (25.7-33.7); MCHC 31.9 g/dl (32.0-36.0); MEAN CELL VOLUME 72.9 fl (80-96); PLATELET COUNT 318 K/MM3 (134-434); RBC 4.28 M/mm3 (3.60-5.2); RDW 17.7 % (11.6-15.6)
[2019-01-02 07:40] LABS: ALBUMIN 2.9 g/dl (3.4-5.0); ALK PHOS 70 U/L (45-117); ANION GAP 7 MMOL/L (8-16); BILIRUBIN,TOTAL 0.2 mg/dL (0.2-1); BLOOD UREA NITROGEN 8 mg/dL (7-18); CALCIUM 7.9 mg/dL (8.5-10.1); CHLORIDE 106 mmol/L (98-107); CO2 28 mmol/L (21-32); CREATININE 0.6 mg/dL (0.55-1.3); GLUCOSE,RANDOM 87 mg/dL (74-106); POTASSIUM 3.8 mmol/L (3.5-5.1); SGOT/AST 15 U/L (15-37); SGPT/ALT 12 U/L (13-61); SODIUM 140 mmol/L (136-145); TOT PROT 6.8 g/dl (6.4-8.2)
[2019-01-02] MEDS ORDERED: PT OWN MED DRAWER 7, Y5N ONE (09:11)
[2019-01-02] MEDS ORDERED: DEXTROSE 5%-WATER - 50 ML IVPB ONE (09:12)
[2019-01-02] MEDS ORDERED: cefTRIAXone SODIUM 1 GM VIAL ONE (09:12)
[2019-01-02] MEDS: ALBUTEROL SO4 0.083% IH SOL 2.5 MG/3 ML VIAL.NEB. NEB SCH ×3 (09:14→21:04)
[2019-01-02] MEDS: LISINOPRIL 20 MG TABLET (FP) PO SCH (09:15)
[2019-01-02] MEDS: PANTOPRAZOLE 20 MG TABLET (FP) PO SCH (09:15)
[2019-01-02] MEDS: CEFTRIAXONE 1 GM in DEXTROSE 5%-WATER - 50 ML IVPB SCH (09:15)
[2019-01-02] MEDS: HYDROCHLOROTHIAZIDE 25 MG TABLET (FP) PO SCH (09:15)
[2019-01-02 09:19] LABS: ERYTHROCYTE SEDIMENTATION RATE 48 mm/hr (0-20)
[2019-01-02] MEDS ORDERED: PATIENT'S OWN MEDICATION (NON-FORMULARY) (Lisinopril/Hydrochlorothiazide [Lisinopril-Hctz PO SCH (10:00)
[2019-01-02] MEDS ORDERED: PATIENT'S OWN MEDICATION (NON-FORMULARY) (Meloxicam [Mobic] 15 MG) PO SCH (10:00)
--- NOTE | 2019-01-02 11:43 | HP ---
Admitting History and Physical - Primary Care Physician PCP: Chele Mulligan - Admission Chief Complaint: Cough. Fever History of Present Illness: Pt with Hx/o asthma, PNA, developed cough 3 weeks ago, treated with Levaquin for 7 days; she felt better. About 1 week ago started to cough again tried OTC meds; for the last 2 nights she developed high fever (103.8 and 103.9) and chills and yesterday LOMAX. Pt was seen in the office and referred to ER for further evaluation; CXR shows possible LLL PNA, pt was started on IV abtx. 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 Pulmonary: Yes: Asthma, Pneumonia Gastrointestinal: Yes: Other (Gallstones, Acute cholecystitis) ...LMP: 10/03/18 - Past Surgical History Past Surgical History: Yes: Bypass (gastric) Additional Past Surgical History: Knee Sx - Smoking History Smoking history: Never smoked Have you smoked in the past 12 months: No Aproximately how many cigarettes per day: 0 - Alcohol/Substance Use Hx Alcohol Use: No Home Medications - Allergies Allergies/Adverse Reactions: Allergies Allergy/AdvReac Type Severity Reaction Status Date / Time erythromycin base Allergy Mild Hives Verified 01/01/19 15:34 [Erythromycin Base] - Home Medications Home Medications: Ambulatory Orders Pregabalin [Lyrica -] 100 mg PO BID 12/10/14 Meloxicam [Mobic] 15 mg PO DAILY 06/24/16 Omeprazole 20 mg PO DAILY 06/24/16 Lisinopril/Hydrochlorothiazide [Lisinopril-Hctz 20-25 mg Tab] 1 each PO DAILY Albuterol 0.083% Nebulizer Ayala [Ventolin 0.083% Nebulizer Soln -] 1 neb NEB Q4H #90 vial 10/23/18 Tramadol HCl 50 mg PO TID PRN #10 tablet MDD 3 11/20/18 Duloxetine HCl [Cymbalta -] 30 mg PO BID 01/03/19 Levothyroxine [Synthroid -] 25 mcg PO DAILY 01/03/19 Oxycodone HCl [Oxycodone HCl ER] 15 tablet PO BID 01/03/19 Klonopin - 0.5 mg PO HS 04/26/19 Review of Systems - Review of Systems Constitutional: reports: Chills, Fever Eyes: denies: Blurred Vision, Double Vision HENT: denies: Nasal Congestion, Throat Pain Neck: denies: Pain on Movement, Stiffness Cardiovascular: denies: Chest Pain, Palpitations Respiratory: reports: Cough, SOB on Exertion Gastrointestinal: reports: Nausea. denies: Abdominal Pain, Diarrhea, Vomiting Genitourinary: denies: Burning, Frequency Musculoskeletal: denies: Back Pain, Joint Swelling Integumentary: denies: Blister, Rash Neurological: denies: Change in Speech, Confusion, Numbness, Parasthesia Endocrine: denies: Excessive Sweating, Intolerance to Cold Hematology/Lymphatic: denies: Easily Bruised, Excessive Bleeding Psychiatric: denies: Anxiety, Depression Physical Examination Vital Signs: Vital Signs Temperature 99.1 F 01/02/19 06:00 Pulse Rate 63 01/02/19 06:00 Respiratory Rate 20 01/02/19 06:00 Blood Pressure 141/88 01/02/19 06:00 O2 Sat by Pulse Oximetry (%) 94 L 01/02/19 03:26 Constitutional: Yes: No Distress, Calm Eyes: Yes: Conjunctiva Clear, EOM Intact HENT: No: Pharyngeal Erythema, Rhinnorhea Neck: Yes: Trachea Midline. No: Lymphadenopathy Cardiovascular: Yes: Regular Rate and Rhythm, S1, S2 Respiratory: Yes: Regular, Other (coarse BS maily at bases) Gastrointestinal: Yes: Normal Bowel Sounds, Soft, Abdomen, Obese, Tenderness ( mild RUQ, no guarding, no rebound) ...Rectal Exam: Yes: Deferred Renal/: Yes: CVA Tenderness - Left, CVA Tenderness - Right Breast(s): Yes: Other (deferred) Edema: No Integumentary: No: Bruising, Erythema, Jaundice, Petechiae Neurological: Yes: Alert, Oriented, Other (motor and sensory examination is intact in UE/ LE/ face) Psychiatric: Yes: Alert, Oriented Labs: CBC, BMP 01/02/19 06:00 01/02/19 06:00 Imaging - Results Chest X-ray: Report Reviewed Problem List - Problems (1) Pneumonia Code(s): J18.9 - PNEUMONIA, UNSPECIFIED ORGANISM Qualifiers: Pneumonia type: due to unspecified organism Laterality: unspecified laterality Lung location: unspecified part of lung Qualified Code(s): J18.9 - Pneumonia, unspecified organism (2) Asthma Code(s): J45.909 - UNSPECIFIED ASTHMA, UNCOMPLICATED (3) Cholelithiasis Code(s): K80.20 - CALCULUS OF GALLBLADDER W/O CHOLECYSTITIS W/O OBSTRUCTION (4) Anemia Code(s): D64.9 - ANEMIA, UNSPECIFIED Assessment/Plan IV abtx Chest CT scan Liver US Pulmonary consult. AM labs
[2019-01-02] MEDS: DOXYCYCLINE INJECTION 100 MG in DEXTROSE 5%-WATER - 100 ML IVPB SCH ×2 (11:47→21:31)
--- NOTE | 2019-01-02 14:52 | PN ---
Progress Note (short form) - Note Progress Note: PULMONARY CONSULTATION DICTATED 01/02/19 IMP ASTHMA EXACERBATION FEVER LIKELY LLL PNEUMONIA H/O GUILLAIN-BARRE SYNDROME POLYNEUROPATHY PLAN IV ABX INHALED BRONCHODILATORS MEDROL O2 COUGH MEDS CULTURES LEGIONELLA URINARY ANTIGEN CHEST CT PEAK FLOW DR ABDUL Problem List - Problems (1) Asthma Code(s): J45.909 - UNSPECIFIED ASTHMA, UNCOMPLICATED (2) Pneumonia Code(s): J18.9 - PNEUMONIA, UNSPECIFIED ORGANISM Qualifiers: Pneumonia type: due to unspecified organism Laterality: unspecified laterality Lung location: unspecified part of lung Qualified Code(s): J18.9 - Pneumonia, unspecified organism (3) Polyneuropathy Code(s): G62.9 - POLYNEUROPATHY, UNSPECIFIED
[2019-01-02] MEDS: methylPREDNISolone NA SUCC 40 MG/1 ML VIAL IVPUSH SCH ×2 (16:53→21:28)
[2019-01-02] MEDS: guaiFENesin/CODEINE 10 ML UNIT-DOSE CUPS PO PRN (16:58)
--- NOTE | 2019-01-02 18:14 | CONS ---
DATE OF CONSULTATION: 01/02/2019 PULMONARY CONSULTATION REFERRING PHYSICIAN: Emelia Mulligan MD HISTORY OF PRESENT ILLNESS: The patient is a 48-year-old female with a past medical history of chronic asthma maintained on an albuterol inhaler, a history of pneumonia in 2013, hospitalized at [facility] [place], hypertension and polyneuropathy. She is a nonsmoker. She was admitted to [facility] with a complaint of a four-day history of increasing shortness of breath, nonproductive cough and fever up to 103.9. The patient states that on December 14, she started developing upper respiratory tract symptoms. At that time, she felt like she had a cold with a nonproductive cough. She was started on Levaquin with some improvement. She was doing well Monday of this admission when she started developing high fevers, chills, shortness of breath and cough. She states that she was using an inhaled bronchodilator every half hour without any significant improvement. She did not seek medical attention until the day of admission when she was advised to go to the emergency room. In the ER, she had a chest x-ray performed which revealed likely left lower lobe pneumonia. She was started on broad-spectrum antibiotics and was transferred to the medical floor for management. She denies any hemoptysis, chest pain or palpitations. She does complain of increasing shortness of breath and wheezing. She states that she normally uses her inhaled bronchodilator on a very infrequent basis except when she gets an upper respiratory tract infection. There is no history of recent travel or occupational exposure to chemicals or fumes. As above, she is a nonsmoker. PAST MEDICAL HISTORY: Hypertension, peripheral neuropathy, asthma, pneumonia, gallstones, acute cholecystitis, history of gastric bypass. MEDICATIONS PRIOR TO ADMISSION: Lyrica, Mobic, omeprazole, hydrochlorothiazide, albuterol and tramadol. CURRENT MEDICATIONS: Meloxicam, Prinivil, ceftriaxone, doxycycline, Lyrica, albuterol, Ultram, Protonix and hydrochlorothiazide. REVIEW OF SYSTEMS: Positive for shortness of breath, cough, fever and chills. No hemoptysis, abdominal pain, chest pain or palpitations. PHYSICAL EXAMINATION: General: The patient is a well-developed, well-nourished female, awake and alert, currently in no acute distress. Vital Signs: She is currently afebrile. T-max is 100.1. HEENT: Head is normocephalic, atraumatic. Neck: Supple. Heart: Regular, S1, S2. Chest: Bibasilar wheezes. Abdomen: Soft. Bowel sounds are positive. Extremities: No cyanosis or edema. LABORATORY: WBC is 5.0, hemoglobin 9.9, hematocrit 31.2, BUN 28, creatinine 0.6. STUDIES: A chest x-ray shows likely left lower lobe pneumonia. IMPRESSION: 1. Asthma exacerbation. 2. Fever, likely secondary to left lower lobe pneumonia. 3. Severe polyneuropathy secondary to her history of Guillain-Udall syndrome. 4. History of gastric bypass. PLAN: 1. IV antibiotics. 2. Inhaled bronchodilators. 3. IV steroids. 4. Supplemental O2. 5. Anti-tussive treatment. 6. Obtain cultures. 7. Legionella urine antigen. 8. Pneumococcal urine antigen. 9. CT scan of the chest. 10. Monitor peak flow. LINCOLN ABDUL M.D. [id number]
[2019-01-02] MEDS: HEPARIN NA (PORCINE) 5,000 UNITS/ML 1ML VIAL SQ SCH (21:28)
[2019-01-03] MEDS: methylPREDNISolone NA SUCC 40 MG/1 ML VIAL IVPUSH SCH ×4 (02:29→22:07)
[2019-01-03] MEDS: guaiFENesin/CODEINE 10 ML UNIT-DOSE CUPS PO PRN ×2 (02:32→16:28)
[2019-01-03] MEDS: ALBUTEROL SO4 0.083% IH SOL 2.5 MG/3 ML VIAL.NEB. NEB SCH (07:10)
[2019-01-03 07:49] LABS: HEMATOCRIT 33.8 % (32.4-45.2); HEMOGLOBIN 10.8 GM/dL (10.7-15.3); MCH 23.4 pg (25.7-33.7); MCHC 32.1 g/dl (32.0-36.0); MEAN PLT VOLUME 8.1 fl (7.5-11.1); PLATELET COUNT 329 K/MM3 (134-434); RBC 4.63 M/mm3 (3.60-5.2); RDW 17.6 % (11.6-15.6); WHITE BLOOD COUNT 3.7 K/mm3 (4.0-10.0)
[2019-01-03 08:00] LABS: ALBUMIN 3.3 g/dl (3.4-5.0); ALK PHOS 84 U/L (45-117); ANION GAP 7 MMOL/L (8-16); BILIRUBIN,TOTAL 0.2 mg/dL (0.2-1); BLOOD UREA NITROGEN 10 mg/dL (7-18); CALCIUM 9.2 mg/dL (8.5-10.1); CHLORIDE 103 mmol/L (98-107); CO2 26 mmol/L (21-32); CREATININE 0.7 mg/dL (0.55-1.3); GLUCOSE,RANDOM 170 mg/dL (74-106); POTASSIUM 4.5 mmol/L (3.5-5.1); SGOT/AST 15 U/L (15-37); SGPT/ALT 15 U/L (13-61); SODIUM 137 mmol/L (136-145); TOT PROT 7.9 g/dl (6.4-8.2)
--- NOTE | 2019-01-03 09:25 | PN ---
Progress Note, Physician History of Present Illness: Pt breathing is slightly better, still coughs and LOMAX. Pt w/o CP, palp, abd pain - Current Medication List Current Medications: Active Medications Albuterol Sulfate (Ventolin 0.083% Nebulizer Soln -) 1 amp NEB RQID [facility] Last Admin: 01/03/19 07:10 Dose: 1 amp Guaifenesin/Codeine Phosphate (Robitussin Ac -) 10 ml PO Q8H PRN PRN Reason: COUGH Last Admin: 01/03/19 02:32 Dose: 10 ml Heparin Sodium (Porcine) (Heparin -) 5,000 unit SQ BID [facility] Last Admin: 01/02/19 21:28 Dose: 5,000 unit Hydrochlorothiazide (Hctz -) 25 mg PO DAILY [facility] Last Admin: 01/02/19 09:15 Dose: 25 mg Ceftriaxone Sodium 1 gm/ (Dextrose) 50 mls @ 100 mls/hr IVPB DAILY [facility] Last Admin: 01/02/19 09:15 Dose: 100 mls/hr Doxycycline Hyclate 100 mg/ (Dextrose) 100 mls @ 50 mls/hr IVPB BID [facility] Last Admin: 01/02/19 21:31 Dose: 50 mls/hr Lisinopril (Prinivil) 20 mg PO DAILY [facility] Last Admin: 01/02/19 09:15 Dose: 20 mg Methylprednisolone Sodium Succinate (Solu-Medrol -) 40 mg IVPUSH Q6H-IV [facility] Last Admin: 01/03/19 02:29 Dose: 40 mg Non-Formulary Medication (Meloxicam [Mobic]) 15 mg PO DAILY [facility] Pantoprazole Sodium (Protonix -) 20 mg PO DAILY [facility] Last Admin: 01/02/19 09:15 Dose: 20 mg Pregabalin (Lyrica -) 100 mg PO BID [facility] Last Admin: 01/02/19 21:29 Dose: 100 mg Tramadol HCl (Ultram -) 50 mg PO Q8H PRN PRN Reason: PAIN - Objective Vital Signs: Vital Signs Temperature 98.5 F 01/03/19 06:32 Pulse Rate 60 01/03/19 06:32 Respiratory Rate 20 01/03/19 06:32 Blood Pressure 141/72 01/03/19 06:32 O2 Sat by Pulse Oximetry (%) 94 L 01/02/19 21:00 Constitutional: Yes: No Distress, Calm Cardiovascular: Yes: Regular Rate and Rhythm, S1, S2 Respiratory: Yes: Regular, Rales Gastrointestinal: Yes: Normal Bowel Sounds, Soft, Abdomen, Obese Edema: No Neurological: Yes: Alert, Oriented Labs: CBC, BMP 01/03/19 06:35 01/03/19 06:35 - ....Imaging Cat Scan: Report Reviewed Problem List - Problems (1) Pneumonia Code(s): J18.9 - PNEUMONIA, UNSPECIFIED ORGANISM Qualifiers: Pneumonia type: due to unspecified organism Laterality: unspecified laterality Lung location: unspecified part of lung Qualified Code(s): J18.9 - Pneumonia, unspecified organism (2) Asthma Code(s): J45.909 - UNSPECIFIED ASTHMA, UNCOMPLICATED (3) Cholelithiasis Code(s): K80.20 - CALCULUS OF GALLBLADDER W/O CHOLECYSTITIS W/O OBSTRUCTION (4) Anemia Code(s): D64.9 - ANEMIA, UNSPECIFIED (5) Leukopenia Code(s): D72.819 - DECREASED WHITE BLOOD CELL COUNT, UNSPECIFIED Assessment/Plan IV abtx IV steroids Chest CT scan Liver US Pulmonary consult is appreciated. Heme consult. AM labs
[2019-01-03] MEDS ORDERED: DEXTROSE 5%-WATER - 50 ML IVPB ONE (10:21)
[2019-01-03] MEDS ORDERED: cefTRIAXone SODIUM 1 GM VIAL ONE (10:21)
[2019-01-03] MEDS ORDERED: PT OWN MED DRAWER 7, Y5N ONE (10:22)
[2019-01-03] MEDS: CEFTRIAXONE 1 GM in DEXTROSE 5%-WATER - 50 ML IVPB SCH (10:29)
[2019-01-03] MEDS: LISINOPRIL 20 MG TABLET (FP) PO SCH (10:30)
[2019-01-03] MEDS: HEPARIN NA (PORCINE) 5,000 UNITS/ML 1ML VIAL SQ SCH ×2 (10:30→22:07)
[2019-01-03] MEDS: HYDROCHLOROTHIAZIDE 25 MG TABLET (FP) PO SCH (10:30)
[2019-01-03] MEDS: PREGABALIN 50 MG CAPSULE PO SCH ×2 (10:30→22:07)
[2019-01-03] MEDS: PANTOPRAZOLE 20 MG TABLET (FP) PO SCH (10:30)
[2019-01-03] MEDS ORDERED: ALBUTEROL SO4 0.083% IH SOL 2.5 MG/3 ML VIAL.NEB. NEB PRN (10:45)
--- NOTE | 2019-01-03 10:45 | PN ---
Progress Note (short form) - Note Progress Note: PULMONARY Still short of breath but slightly improved from yesterday. +nonproductive cough. No fevers or chills. CT chest done showing extensive consolidation LLL and patchy infiltrates elsewhere. Vital Signs Period Temp Pulse Resp BP Sys/Delarosa Pulse Ox Last 24 Hr 98.5 F-98.7 F 60-87 20-20 123-141/57-78 94 Gen: frequent coughing Heart: RRR Lung: bilateral rhonchi, wheezes Abd: soft, nontender Ext: no edema CBC, BMP 01/03/19 06:35 01/03/19 06:35 Active Medications Albuterol Sulfate (Ventolin 0.083% Nebulizer Soln -) 1 amp NEB RQID [facility] Last Admin: 01/03/19 07:10 Dose: 1 amp Guaifenesin/Codeine Phosphate (Robitussin Ac -) 10 ml PO Q8H PRN PRN Reason: COUGH Last Admin: 01/03/19 02:32 Dose: 10 ml Heparin Sodium (Porcine) (Heparin -) 5,000 unit SQ BID [facility] Last Admin: 01/03/19 10:30 Dose: 5,000 unit Hydrochlorothiazide (Hctz -) 25 mg PO DAILY [facility] Last Admin: 01/03/19 10:30 Dose: 25 mg Ceftriaxone Sodium 1 gm/ (Dextrose) 50 mls @ 100 mls/hr IVPB DAILY [facility] Last Admin: 01/03/19 10:29 Dose: 100 mls/hr Doxycycline Hyclate 100 mg/ (Dextrose) 100 mls @ 50 mls/hr IVPB BID [facility] Last Admin: 01/02/19 21:31 Dose: 50 mls/hr Lisinopril (Prinivil) 20 mg PO DAILY [facility] Last Admin: 01/03/19 10:30 Dose: 20 mg Methylprednisolone Sodium Succinate (Solu-Medrol -) 40 mg IVPUSH Q6H-IV [facility] Last Admin: 01/03/19 10:29 Dose: 40 mg Non-Formulary Medication (Meloxicam [Mobic]) 15 mg PO DAILY [facility] Pantoprazole Sodium (Protonix -) 20 mg PO DAILY [facility] Last Admin: 01/03/19 10:30 Dose: 20 mg Pregabalin (Lyrica -) 100 mg PO BID [facility] Last Admin: 01/03/19 10:30 Dose: 100 mg Tramadol HCl (Ultram -) 50 mg PO Q8H PRN PRN Reason: PAIN A/P Pneumonia Acute Asthma Exacerbation 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
[2019-01-03] MEDS: DOXYCYCLINE INJECTION 100 MG in DEXTROSE 5%-WATER - 100 ML IVPB SCH ×2 (11:42→22:07)
[2019-01-03] MEDS: ALBUTEROL SO4 2.5/IPRATROPIUM 0.5 INH SOL 3 ML VIAL.NEB. NEB SCH ×3 (11:55→20:23)
[2019-01-04] MEDS: guaiFENesin/CODEINE 10 ML UNIT-DOSE CUPS PO PRN ×2 (01:07→15:27)
[2019-01-04] MEDS: traMADol HCL 50 MG TABLET PO PRN (01:11)
[2019-01-04] MEDS: methylPREDNISolone NA SUCC 40 MG/1 ML VIAL IVPUSH SCH ×4 (02:32→21:17)
[2019-01-04] MEDS: ALBUTEROL SO4 2.5/IPRATROPIUM 0.5 INH SOL 3 ML VIAL.NEB. NEB SCH ×4 (07:42→20:07)
[2019-01-04 08:17] LABS: HEMATOCRIT 32.9 % (32.4-45.2); HEMOGLOBIN 10.6 GM/dL (10.7-15.3); MCH 23.4 pg (25.7-33.7); MCHC 32.2 g/dl (32.0-36.0); MEAN CELL VOLUME 72.7 fl (80-96); MEAN PLT VOLUME 8.1 fl (7.5-11.1); PLATELET COUNT 345 K/MM3 (134-434); RBC 4.52 M/mm3 (3.60-5.2); RDW 17.7 % (11.6-15.6); WHITE BLOOD COUNT 9.7 K/mm3 (4.0-10.0)
[2019-01-04 08:32] LABS: ALBUMIN 3.1 g/dl (3.4-5.0); ALK PHOS 86 U/L (45-117); ANION GAP 9 MMOL/L (8-16); BILIRUBIN,TOTAL 0.2 mg/dL (0.2-1); BLOOD UREA NITROGEN 15 mg/dL (7-18); CHLORIDE 101 mmol/L (98-107); CO2 28 mmol/L (21-32); CREATININE 0.7 mg/dL (0.55-1.3); GLUCOSE,RANDOM 145 mg/dL (74-106); POTASSIUM 4.2 mmol/L (3.5-5.1); SGOT/AST 13 U/L (15-37); SGPT/ALT 13 U/L (13-61); SODIUM 138 mmol/L (136-145); TOT PROT 7.8 g/dl (6.4-8.2)
[2019-01-04] MEDS ORDERED: DEXTROSE 5%-WATER - 50 ML IVPB ONE (09:34)
[2019-01-04] MEDS ORDERED: cefTRIAXone SODIUM 1 GM VIAL ONE (09:34)
[2019-01-04] MEDS ORDERED: PT OWN MED DRAWER 7, Y5N ONE ×3 (09:36→21:56)
[2019-01-04] MEDS: PANTOPRAZOLE 20 MG TABLET (FP) PO SCH (09:40)
[2019-01-04] MEDS: HYDROCHLOROTHIAZIDE 25 MG TABLET (FP) PO SCH (09:40)
[2019-01-04] MEDS: HEPARIN NA (PORCINE) 5,000 UNITS/ML 1ML VIAL SQ SCH ×2 (09:40→21:17)
[2019-01-04] MEDS: CEFTRIAXONE 1 GM in DEXTROSE 5%-WATER - 50 ML IVPB SCH (09:40)
[2019-01-04] MEDS: LISINOPRIL 20 MG TABLET (FP) PO SCH (09:41)
[2019-01-04] MEDS: PREGABALIN 50 MG CAPSULE PO SCH ×2 (09:41→21:17)
[2019-01-04] MEDS: DOXYCYCLINE INJECTION 100 MG in DEXTROSE 5%-WATER - 100 ML IVPB SCH ×2 (09:41→22:03)
[2019-01-04 10:08] LABS: ERYTHROCYTE SEDIMENTATION RATE 53 mm/hr (0-20)
[2019-01-04 11:44] VITALS: BMI 56.1
[2019-01-04] MEDS ORDERED: INSULIN (NOVOLOG) ASPART 100 UNITS/ML 10ML VIAL ONE (11:44)
--- NOTE | 2019-01-04 12:41 | PN ---
Progress Note (short form) - Note Progress Note: PULMONARY VSS/AFEBRILE ANICTERIC SCATTERED LEFT BASE CRACKLES S1S2 OBESE NO EDEMA LABS/MEDS/NOTES/IMAGES REVIEWED IMP ASTHMA EXACERBATION LLL PNEUMONIA H/O GUILLAIN-BARRE SYNDROME POLYNEUROPATHY PLAN IV ABX INHALED BRONCHODILATORS MEDROL O2 PEAK FLOW DAILY David HAWTHORNE MD
--- NOTE | 2019-01-04 13:13 | CONSULT ---
Consult Consult Specialty:: Hematology- oncology Referred by:: Dr. Chele Mulligan Reason for Consultation:: Anemia - History of Present Illness Chief Complaint: Presented with exacerbation of asthma and LLL pneumonia with fevers and cough. 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 - Past Surgical History Past Surgical History: Yes: Bypass (gastric), Colonoscopy (never had colonoscopy or endoscopy ) Additional Surgical History: in 2013 had internal bleeding with fistulous tract which required surgery - Alcohol/Substance Use Hx Alcohol Use: No History of Substance Use: reports: None - Smoking History Smoking history: Never smoked Have you smoked in the past 12 months: No Aproximately how many cigarettes per day: 0 Home Medications - Allergies Allergies/Adverse Reactions: Allergies Allergy/AdvReac Type Severity Reaction Status Date / Time erythromycin base Allergy Mild Hives Verified 01/01/19 15:34 [Erythromycin Base] - Home Medications Home Medications: Ambulatory Orders Pregabalin [Lyrica -] 100 mg PO BID 12/10/14 Meloxicam [Mobic] 15 mg PO DAILY 06/24/16 Omeprazole 20 mg PO DAILY 06/24/16 Lisinopril/Hydrochlorothiazide [Lisinopril-Hctz 20-25 mg Tab] 1 each PO DAILY Albuterol 0.083% Nebulizer Ayala [Ventolin 0.083% Nebulizer Soln -] 1 neb NEB Q4H #90 vial 10/23/18 Tramadol HCl 50 mg PO TID PRN #10 tablet MDD 3 11/20/18 Duloxetine HCl [Cymbalta -] 30 mg PO BID 01/03/19 Levothyroxine [Synthroid -] 25 mcg PO DAILY 04/25/19 Oxycodone HCl [Oxycodone HCl ER] 15 tablet PO BID 01/03/19 Klonopin - 0.5 mg PO HS 01/04/19 Family Disease History - Family Disease History Family Disease History: Heart Disease: Grandparent, [place]: Father (colon ca - age 61), Other: Brother (8 brothers - hx of ASHD, HBP in several brothers) Review of Systems - Review of Systems Constitutional: reports: Fever, Loss of Appetite, Malaise, Night Sweats, Weakness Eyes: reports: Blurred Vision HENT: reports: Difficult Swallowing, Epistaxis Neck: reports: Decreased ROM, Lumps, Pain on Movement, Stiffness, Swollen Glands , Tenderness Cardiovascular: reports: Shortness of Breath. denies: Chest Pain Respiratory: reports: Cough, SOB on Exertion. denies: Hemoptysis Gastrointestinal: reports: Dysphagia, Nausea, Other (GERD). denies: Abdominal Pain, Constipation, Diarrhea, Vomiting, Vomiting Blood Genitourinary: reports: Burning Breasts: reports: Other (mammography in May-2018 reportedly negative) Musculoskeletal: reports: Back Pain, Extremity Pain, Muscle Weakness Integumentary: denies: Eczema, Erythema Neurological: reports: Headache, Pre-Existing Deficit (S/P guillain -Cameron in 2002 with resultant polyneuropathy; Bilateral carpal tunnel migraine headaches ), Other Hematology/Lymphatic: denies: Excessive Bleeding, Swollen Glands Psychiatric: reports: No Symptoms Physical Exam Vital Signs: Vital Signs Temperature 97.9 F 01/04/19 10:00 Pulse Rate 64 01/04/19 10:00 Respiratory Rate 19 01/04/19 10:00 Blood Pressure 124/60 01/04/19 10:00 O2 Sat by Pulse Oximetry (%) 95 01/04/19 09:00 Labs: CBC, BMP 01/04/19 07:15 01/04/19 07:15 Imaging - Results Cat Scan: Report Reviewed, Image Reviewed Problem List - Problems (1) Anemia Assessment/Plan: Hypochromic , microcytic anemia. History of gastric by-pass in 2002 . Has been taking oral Fe++ Likely iron deficiency from gastric bypass. Has never had colonoscopy or endoscopy. Complains of dysphagia Will likely need upper and lower GI assessment. Continues with monthly menses - menarche age 11. Menses x 3 days reportedly not heavy and with no clots. Also on Mobic for pain /neuropathy. Code(s): D64.9 - ANEMIA, UNSPECIFIED (2) Pneumonia Assessment/Plan: LLL consolidation on antibiotic therapy. 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 Code(s): G62.9 - POLYNEUROPATHY, UNSPECIFIED (4) Lumbar radiculopathy Code(s): M54.16 - RADICULOPATHY, LUMBAR REGION (5) Asthma Assessment/Plan: Flare of asthma and pneumonia Code(s): J45.909 - UNSPECIFIED ASTHMA, UNCOMPLICATED
--- NOTE | 2019-01-04 20:06 | PN ---
Progress Note, Physician History of Present Illness: Pt breathing is slightly better, still coughs and has LOMAX. Pt w/o CP, palp, abd pain. - Current Medication List Current Medications: Active Medications Albuterol Sulfate (Ventolin 0.083% Nebulizer Soln -) 1 amp NEB Q4H PRN PRN Reason: SHORT OF BREATH/WHEEZING Albuterol/Ipratropium (Duoneb -) 1 amp NEB RQID [facility] Last Admin: 01/04/19 15:24 Dose: 1 amp Guaifenesin/Codeine Phosphate (Robitussin Ac -) 10 ml PO Q8H PRN PRN Reason: COUGH Last Admin: 01/04/19 15:27 Dose: 10 ml Heparin Sodium (Porcine) (Heparin -) 5,000 unit SQ BID [facility] Last Admin: 01/04/19 09:40 Dose: 5,000 unit Hydrochlorothiazide (Hctz -) 25 mg PO DAILY [facility] Last Admin: 01/04/19 09:40 Dose: 25 mg Ceftriaxone Sodium 1 gm/ (Dextrose) 50 mls @ 100 mls/hr IVPB DAILY [facility] [place] Last Admin: 01/04/19 09:40 Dose: 100 mls/hr Doxycycline Hyclate 100 mg/ (Dextrose) 100 mls @ 50 mls/hr IVPB BID [facility] Last Admin: 01/04/19 09:41 Dose: 50 mls/hr Lisinopril (Prinivil) 20 mg PO DAILY [facility] [place] Last Admin: 01/04/19 09:41 Dose: 20 mg Methylprednisolone Sodium Succinate (Solu-Medrol -) 40 mg IVPUSH Q6H-IV [facility] [place] Last Admin: 01/04/19 15:26 Dose: 40 mg Non-Formulary Medication (Meloxicam [Mobic]) 15 mg PO DAILY [facility] Pantoprazole Sodium (Protonix -) 20 mg PO DAILY [facility] Last Admin: 01/04/19 09:40 Dose: 20 mg Pregabalin (Lyrica -) 100 mg PO BID [facility] Last Admin: 01/04/19 09:41 Dose: 100 mg Tramadol HCl (Ultram -) 50 mg PO Q8H PRN PRN Reason: PAIN Last Admin: 01/04/19 01:11 Dose: 50 mg - Objective Vital Signs: Vital Signs Temperature 98.5 F 01/04/19 19:04 Pulse Rate 92 H 01/04/19 19:04 Respiratory Rate 20 01/04/19 19:04 Blood Pressure 148/92 01/04/19 19:04 O2 Sat by Pulse Oximetry (%) 95 01/04/19 09:00 Constitutional: Yes: No Distress, Calm Cardiovascular: Yes: Regular Rate and Rhythm, S1, S2 Respiratory: Yes: Regular, Wheezes (with deep breathing). No: Rhonchi Gastrointestinal: Yes: Normal Bowel Sounds, Soft. No: Tenderness Edema: No Neurological: Yes: Alert, Oriented Labs: CBC, BMP 01/04/19 07:15 01/04/19 07:15 Problem List - Problems (1) Pneumonia Assessment/Plan: possible multilobar, bilateral. Code(s): J18.9 - PNEUMONIA, UNSPECIFIED ORGANISM Qualifiers: Pneumonia type: due to unspecified organism Laterality: unspecified laterality Lung location: unspecified part of lung Qualified Code(s): J18.9 - Pneumonia, unspecified organism (2) Asthma Code(s): J45.909 - UNSPECIFIED ASTHMA, UNCOMPLICATED (3) Cholelithiasis Code(s): K80.20 - CALCULUS OF GALLBLADDER W/O CHOLECYSTITIS W/O OBSTRUCTION (4) Anemia Code(s): D64.9 - ANEMIA, UNSPECIFIED (5) Leukopenia Assessment/Plan: better today Code(s): D72.819 - DECREASED WHITE BLOOD CELL COUNT, UNSPECIFIED (6) Anemia Code(s): D64.9 - ANEMIA, UNSPECIFIED Assessment/Plan IV abtx IV steroids -consider tapering in AM. Chest CT scan report was reviewed Pulmonary, Heme consults are appreciated. AM labs
[2019-01-04] MEDS: DULoxetine HCL 30 MG CAPSULE.DR (FP) PO SCH (21:17)
[2019-01-04] MEDS: clonazePAM 0.5 MG TABLET PO PRN (22:02)
[2019-01-05] MEDS: methylPREDNISolone NA SUCC 40 MG/1 ML VIAL IVPUSH SCH ×4 (02:04→20:01)
[2019-01-05] MEDS: LEVOTHYROXINE NA 25 MCG TABLET (FP) PO SCH (06:16)
[2019-01-05] MEDS: ALBUTEROL SO4 2.5/IPRATROPIUM 0.5 INH SOL 3 ML VIAL.NEB. NEB SCH ×4 (07:39→20:44)
[2019-01-05 07:55] LABS: BASO % 0.6 % (0-2.0); HEMATOCRIT 33.7 % (32.4-45.2); HEMOGLOBIN 10.8 GM/dL (10.7-15.3); LYMPH % 13.2 % (8-40); MCH 23.4 pg (25.7-33.7); MEAN CELL VOLUME 73.3 fl (80-96); MEAN PLT VOLUME 8.6 fl (7.5-11.1); MONO % 4.3 % (3.8-10.2); NEUT % 81.9 % (42.8-82.8); PLATELET COUNT 383 K/MM3 (134-434); RBC 4.59 M/mm3 (3.60-5.2); RDW 17.5 % (11.6-15.6); RETICULOCYTES 1.07 % (0.5-1.5); WHITE BLOOD COUNT 11.2 K/mm3 (4.0-10.0)
[2019-01-05 08:01] LABS: ALBUMIN 3.1 g/dl (3.4-5.0); ALK PHOS 77 U/L (45-117); ANION GAP 7 MMOL/L (8-16); BILIRUBIN,TOTAL 0.2 mg/dL (0.2-1); BLOOD UREA NITROGEN 17 mg/dL (7-18); CALCIUM 8.9 mg/dL (8.5-10.1); CHLORIDE 100 mmol/L (98-107); CO2 29 mmol/L (21-32); CREATININE 0.6 mg/dL (0.55-1.3); GLUCOSE,RANDOM 127 mg/dL (74-106); LDH 182 U/L (84-246); POTASSIUM 4.2 mmol/L (3.5-5.1); SGOT/AST 11 U/L (15-37); SGPT/ALT 14 U/L (13-61); SODIUM 136 mmol/L (136-145)
[2019-01-05] MEDS ORDERED: DEXTROSE 5%-WATER - 50 ML IVPB ONE (10:02)
[2019-01-05] MEDS ORDERED: cefTRIAXone SODIUM 1 GM VIAL ONE (10:02)
[2019-01-05] MEDS: DOXYCYCLINE INJECTION 100 MG in DEXTROSE 5%-WATER - 100 ML IVPB SCH ×2 (10:16→21:09)
[2019-01-05] MEDS: CEFTRIAXONE 1 GM in DEXTROSE 5%-WATER - 50 ML IVPB SCH (10:17)
[2019-01-05] MEDS: HEPARIN NA (PORCINE) 5,000 UNITS/ML 1ML VIAL SQ SCH ×2 (10:17→21:02)
[2019-01-05] MEDS: PANTOPRAZOLE 20 MG TABLET (FP) PO SCH (10:18)
[2019-01-05] MEDS: LISINOPRIL 20 MG TABLET (FP) PO SCH (10:18)
[2019-01-05] MEDS: guaiFENesin/CODEINE 10 ML UNIT-DOSE CUPS PO PRN ×2 (10:18→10:23)
[2019-01-05] MEDS: PREGABALIN 50 MG CAPSULE PO SCH ×2 (10:18→21:01)
[2019-01-05] MEDS: HYDROCHLOROTHIAZIDE 25 MG TABLET (FP) PO SCH (10:18)
[2019-01-05] MEDS: DULoxetine HCL 30 MG CAPSULE.DR (FP) PO SCH ×2 (10:18→21:00)
[2019-01-05] MEDS: traMADol HCL 50 MG TABLET PO PRN ×2 (10:27→19:55)
--- NOTE | 2019-01-05 11:29 | PN ---
Progress Note (short form) - Note Progress Note: Patient seen in follow up. No events overnight. No complaints at this time. Inpatient Meds reviewed. Current Medications Albuterol Sulfate (Ventolin 0.083% Nebulizer Soln -) 1 amp NEB Q4H PRN PRN Reason: SHORT OF BREATH/WHEEZING Albuterol/Ipratropium (Duoneb -) 1 amp NEB RQID [facility] Last Admin: 01/05/19 07:39 Dose: 1 amp Clonazepam (Klonopin -) 0.5 mg PO HS PRN PRN Reason: ANXIETY Last Admin: 01/04/19 22:02 Dose: 0.5 mg Duloxetine HCl (Cymbalta -) 30 mg PO BID [facility] Last Admin: 01/05/19 10:18 Dose: 30 mg Guaifenesin/Codeine Phosphate (Robitussin Ac -) 10 ml PO Q8H PRN PRN Reason: COUGH Last Admin: 01/05/19 10:23 Dose: 10 ml Heparin Sodium (Porcine) (Heparin -) 5,000 unit SQ BID [facility] Last Admin: 01/05/19 10:17 Dose: 5,000 unit Hydrochlorothiazide (Hctz -) 25 mg PO DAILY [facility] Last Admin: 01/05/19 10:18 Dose: 25 mg Ceftriaxone Sodium 1 gm/ (Dextrose) 50 mls @ 100 mls/hr IVPB DAILY [facility] Last Admin: 01/05/19 10:17 Dose: 100 mls/hr Doxycycline Hyclate 100 mg/ (Dextrose) 100 mls @ 50 mls/hr IVPB BID [facility] Last Admin: 01/05/19 10:16 Dose: 50 mls/hr Levothyroxine Sodium (Synthroid -) 25 mcg PO DAILY@0700 [facility] Last Admin: 01/05/19 06:16 Dose: 25 mcg Lisinopril (Prinivil) 20 mg PO DAILY [facility] Last Admin: 01/05/19 10:18 Dose: 20 mg Methylprednisolone Sodium Succinate (Solu-Medrol -) 40 mg IVPUSH Q6H-IV [facility] Last Admin: 01/05/19 10:17 Dose: 40 mg Non-Formulary Medication (Meloxicam [Mobic]) 15 mg PO DAILY [facility] Pantoprazole Sodium (Protonix -) 20 mg PO DAILY [facility] Last Admin: 01/05/19 10:18 Dose: 20 mg Pregabalin (Lyrica -) 100 mg PO BID [facility] Last Admin: 01/05/19 10:18 Dose: 100 mg Tramadol HCl (Ultram -) 50 mg PO Q8H PRN PRN Reason: PAIN Last Admin: 01/05/19 10:27 Dose: 50 mg On examination: Last Vital Signs Temp Pulse Resp BP Pulse Ox 97.8 F 104 H 20 139/82 97 01/05/19 11:00 01/05/19 11:00 01/05/19 11:00 01/05/19 11:00 01/05/19 09:00 General: In no acute distress, supine in bed, obese. Extremities: No pallor or icterus. No pedal edema. CVS: S1, S2, regular, no gallop or murmur. Chest: good air entry bilaterally, clear Abdomen: Non-distended, non-tender. Neuro: Alert, oriented, non-focal. Labs: CBC, BMP 01/05/19 06:00 01/05/19 06:00 Assessment. Iron deficiency anemia, in the context of prior bariatric surgery. Denies menorrhagia. STEPHAN may be consequent to normal menstrual losses with compromised absorption, but cannot exclude possibility of concomitant occult GI hemorrhage. Check stool for occult blood, with consideration for endoscopy if positive. Will require screening colonoscopy soon in any event. Recommend repletion of iron intravenously, but in light of current sepsis, would recommend delaying infusion until discharged, as outpatient - deficit approximately 1g.
--- NOTE | 2019-01-05 12:11 | PN ---
Progress Note (short form) - Note Progress Note: Still LOMAX but a little better. No significant change in cough anf coughing fits. No CP. Intake & Output 01/02/19 01/03/19 01/04/19 01/05/19 23:59 23:59 23:59 23:59 Intake Total 1740 790 735 851 Balance 1740 790 735 851 Weight 348 lb 6.4 oz 348 lb Last Vital Signs Temp Pulse Resp BP Pulse Ox 97.8 F 104 H 20 139/82 97 01/05/19 11:00 01/05/19 11:00 01/05/19 11:00 01/05/19 11:00 01/05/19 09:00 Active Medications Albuterol Sulfate (Ventolin 0.083% Nebulizer Soln -) 1 amp NEB Q4H PRN PRN Reason: SHORT OF BREATH/WHEEZING Albuterol/Ipratropium (Duoneb -) 1 amp NEB RQID [facility] Last Admin: 01/05/19 07:39 Dose: 1 amp Clonazepam (Klonopin -) 0.5 mg PO HS PRN PRN Reason: ANXIETY Last Admin: 01/04/19 22:02 Dose: 0.5 mg Duloxetine HCl (Cymbalta -) 30 mg PO BID [facility] Last Admin: 01/05/19 10:18 Dose: 30 mg Guaifenesin/Codeine Phosphate (Robitussin Ac -) 10 ml PO Q8H PRN PRN Reason: COUGH Last Admin: 01/05/19 10:23 Dose: 10 ml Heparin Sodium (Porcine) (Heparin -) 5,000 unit SQ BID [facility] Last Admin: 01/05/19 10:17 Dose: 5,000 unit Hydrochlorothiazide (Hctz -) 25 mg PO DAILY [facility] Last Admin: 01/05/19 10:18 Dose: 25 mg Ceftriaxone Sodium 1 gm/ (Dextrose) 50 mls @ 100 mls/hr IVPB DAILY [facility] Last Admin: 01/05/19 10:17 Dose: 100 mls/hr Doxycycline Hyclate 100 mg/ (Dextrose) 100 mls @ 50 mls/hr IVPB BID [facility] Last Admin: 01/05/19 10:16 Dose: 50 mls/hr Levothyroxine Sodium (Synthroid -) 25 mcg PO DAILY@0700 [facility] Last Admin: 01/05/19 06:16 Dose: 25 mcg Lisinopril (Prinivil) 20 mg PO DAILY [facility] Last Admin: 01/05/19 10:18 Dose: 20 mg Methylprednisolone Sodium Succinate (Solu-Medrol -) 40 mg IVPUSH Q6H-IV [facility] Last Admin: 01/05/19 10:17 Dose: 40 mg Non-Formulary Medication (Meloxicam [Mobic]) 15 mg PO DAILY [facility] Pantoprazole Sodium (Protonix -) 20 mg PO DAILY [facility] Last Admin: 01/05/19 10:18 Dose: 20 mg Pregabalin (Lyrica -) 100 mg PO BID [facility] Last Admin: 01/05/19 10:18 Dose: 100 mg Tramadol HCl (Ultram -) 50 mg PO Q8H PRN PRN Reason: PAIN Last Admin: 01/05/19 10:27 Dose: 50 mg Gen: Awake and alert, NAD, frequent coughing Heart: RRR Lung: bilateral rhonchi, wheezes Abd: soft, nontender Ext: no edema Laboratory Results - last 24 hr 01/05/19 01/05/19 06:00 06:00 WBC 11.2 H RBC 4.59 Hgb 10.8 Hct 33.7 MCV 73.3 L MCH 23.4 L MCHC 32.0 RDW 17.5 H Plt Count 383 MPV 8.6 Absolute Neuts (auto) 9.1 H Neutrophils % 81.9 D Lymphocytes % 13.2 D Monocytes % 4.3 Eosinophils % 0.0 D Basophils % 0.6 Nucleated RBC % 0 Retic Count 1.07 Sodium 136 Potassium 4.2 Chloride 100 Carbon Dioxide 29 Anion Gap 7 L BUN 17 Creatinine 0.6 Creat Clearance w eGFR 106.25 Random Glucose 127 H Calcium 8.9 Ferritin 17.7 Total Bilirubin 0.2 AST 11 L ALT 14 Alkaline Phosphatase 77 LD Total 182 Total Protein 8.0 Albumin 3.1 L Vitamin B12 650 Serum Folate 10 TSH 0.31 L Free T4 0.96 A/P Pneumonia Acute Asthma Exacerbation h/o Guillain M[place] Syndrome - continue antibiotics - f/u cultures - continue medrol at current dose, can consider tapering in AM if improved - inhaled bronchodilators standing and PRN - O2 to keep Spo2 >90% - will need outpt f/u of chest imaging to ensure resolution of infiltrates in 6 -8 weeks - DVT prophylaxis Dr Oliver
--- NOTE | 2019-01-05 13:29 | PN ---
Progress Note, Physician History of Present Illness: Pt breathing is the same. Pt w/o CP, palp, abd pain. - Current Medication List Current Medications: Active Medications Albuterol Sulfate (Ventolin 0.083% Nebulizer Soln -) 1 amp NEB Q4H PRN PRN Reason: SHORT OF BREATH/WHEEZING Albuterol/Ipratropium (Duoneb -) 1 amp NEB RQID COUNTS INCLUDE 234 BEDS AT THE [facility] Last Admin: 01/05/19 12:45 Dose: 1 amp Clonazepam (Klonopin -) 0.5 mg PO HS PRN PRN Reason: ANXIETY Last Admin: 01/04/19 22:02 Dose: 0.5 mg Duloxetine HCl (Cymbalta -) 30 mg PO BID COUNTS INCLUDE 234 BEDS AT THE [facility] Last Admin: 01/05/19 10:18 Dose: 30 mg Guaifenesin/Codeine Phosphate (Robitussin Ac -) 10 ml PO Q8H PRN PRN Reason: COUGH Last Admin: 01/05/19 10:23 Dose: 10 ml Heparin Sodium (Porcine) (Heparin -) 5,000 unit SQ BID COUNTS INCLUDE 234 BEDS AT THE [facility] Last Admin: 01/05/19 10:17 Dose: 5,000 unit Hydrochlorothiazide (Hctz -) 25 mg PO DAILY COUNTS INCLUDE 234 BEDS AT THE [facility] Last Admin: 01/05/19 10:18 Dose: 25 mg Ceftriaxone Sodium 1 gm/ (Dextrose) 50 mls @ 100 mls/hr IVPB DAILY COUNTS INCLUDE 234 BEDS AT THE [facility] Last Admin: 01/05/19 10:17 Dose: 100 mls/hr Doxycycline Hyclate 100 mg/ (Dextrose) 100 mls @ 50 mls/hr IVPB BID COUNTS INCLUDE 234 BEDS AT THE [facility] Last Admin: 01/05/19 10:16 Dose: 50 mls/hr Levothyroxine Sodium (Synthroid -) 25 mcg PO DAILY@0700 COUNTS INCLUDE 234 BEDS AT THE [facility] Last Admin: 01/05/19 06:16 Dose: 25 mcg Lisinopril (Prinivil) 20 mg PO DAILY COUNTS INCLUDE 234 BEDS AT THE [facility] Last Admin: 01/05/19 10:18 Dose: 20 mg Methylprednisolone Sodium Succinate (Solu-Medrol -) 40 mg IVPUSH Q6H-IV COUNTS INCLUDE 234 BEDS AT THE [facility] Last Admin: 01/05/19 10:17 Dose: 40 mg Non-Formulary Medication (Meloxicam [Mobic]) 15 mg PO DAILY COUNTS INCLUDE 234 BEDS AT THE [facility] Pantoprazole Sodium (Protonix -) 20 mg PO DAILY COUNTS INCLUDE 234 BEDS AT THE [facility] Last Admin: 01/05/19 10:18 Dose: 20 mg Pregabalin (Lyrica -) 100 mg PO BID [facility] Last Admin: 01/05/19 10:18 Dose: 100 mg Tramadol HCl (Ultram -) 50 mg PO Q8H PRN PRN Reason: PAIN Last Admin: 01/05/19 10:27 Dose: 50 mg - Objective Vital Signs: Vital Signs Temperature 97.8 F 01/05/19 11:00 Pulse Rate 104 H 01/05/19 11:00 Respiratory Rate 20 01/05/19 11:00 Blood Pressure 139/82 01/05/19 11:00 O2 Sat by Pulse Oximetry (%) 97 01/05/19 09:00 Constitutional: Yes: No Distress, Calm Cardiovascular: Yes: Regular Rate and Rhythm, S1, S2 Respiratory: Yes: Regular, Rhonchi, Wheezes (with deep breathing) Gastrointestinal: Yes: Normal Bowel Sounds, Soft, Tenderness Edema: No Neurological: Yes: Alert, Oriented Labs: CBC, BMP 01/05/19 06:00 01/05/19 06:00 Problem List - Problems (1) Pneumonia Code(s): J18.9 - PNEUMONIA, UNSPECIFIED ORGANISM Qualifiers: Pneumonia type: due to unspecified organism Laterality: unspecified laterality Lung location: unspecified part of lung Qualified Code(s): J18.9 - Pneumonia, unspecified organism (2) Asthma Code(s): J45.909 - UNSPECIFIED ASTHMA, UNCOMPLICATED (3) Cholelithiasis Code(s): K80.20 - CALCULUS OF GALLBLADDER W/O CHOLECYSTITIS W/O OBSTRUCTION (4) Anemia Code(s): D64.9 - ANEMIA, UNSPECIFIED (5) Leukopenia Code(s): D72.819 - DECREASED WHITE BLOOD CELL COUNT, UNSPECIFIED (6) Anemia Code(s): D64.9 - ANEMIA, UNSPECIFIED (7) History of Guillain-[place] syndrome Code(s): Z86.69 - PERSONAL HISTORY OF DIS OF THE NERVOUS SYS AND SENSE ORGANS (8) Abnormal thyroid blood test Assessment/Plan: in esettings of acute disease; to be monitored as outpatient. Code(s): R79.89 - OTHER SPECIFIED ABNORMAL FINDINGS OF BLOOD CHEMISTRY Assessment/Plan IV abtx IV steroids -to f/u with Pulmonary Chest CT scan report was reviewed Pulmonary, Heme consults are appreciated. to change Ultram to Oxycodone (pt's home medication) AM labs
[2019-01-05] MEDS: clonazePAM 0.5 MG TABLET PO PRN (21:00)
[2019-01-05] MEDS: oxyCODONE HCL 10 MG SUSTAINED ACTING TABLET PO SCH (21:01)
[2019-01-06] MEDS: methylPREDNISolone NA SUCC 40 MG/1 ML VIAL IVPUSH SCH ×4 (03:01→21:53)
[2019-01-06] MEDS: LEVOTHYROXINE NA 25 MCG TABLET (FP) PO SCH (06:04)
[2019-01-06 06:36] LABS: SERUM IRON SATURATION 6 % (15-55); TOTAL IRON BINDING CAPACITY 416 ug/dL (250-450); UIBC 390 ug/dL (131-425)
[2019-01-06 08:20] LABS: HEMATOCRIT 33.2 % (32.4-45.2); HEMOGLOBIN 10.8 GM/dL (10.7-15.3); MCH 23.9 pg (25.7-33.7); MCHC 32.4 g/dl (32.0-36.0); MEAN CELL VOLUME 73.9 fl (80-96); MEAN PLT VOLUME 8.8 fl (7.5-11.1); PLATELET COUNT 363 K/MM3 (134-434); RDW 17.5 % (11.6-15.6); WHITE BLOOD COUNT 10.2 K/mm3 (4.0-10.0)
[2019-01-06 08:32] LABS: ALK PHOS 73 U/L (45-117); ANION GAP 8 MMOL/L (8-16); BILIRUBIN,TOTAL 0.3 mg/dL (0.2-1); BLOOD UREA NITROGEN 19 mg/dL (7-18); CALCIUM 8.7 mg/dL (8.5-10.1); CHLORIDE 98 mmol/L (98-107); CO2 31 mmol/L (21-32); CREATININE 0.7 mg/dL (0.55-1.3); GLUCOSE,RANDOM 137 mg/dL (74-106); POTASSIUM 4.4 mmol/L (3.5-5.1); SGOT/AST 6 U/L (15-37); SGPT/ALT 15 U/L (13-61); SODIUM 136 mmol/L (136-145); TOT PROT 7.5 g/dl (6.4-8.2)
[2019-01-06] MEDS: ALBUTEROL SO4 2.5/IPRATROPIUM 0.5 INH SOL 3 ML VIAL.NEB. NEB SCH ×4 (08:39→20:30)
[2019-01-06] MEDS ORDERED: cefTRIAXone SODIUM 1 GM VIAL ONE (09:23)
[2019-01-06] MEDS ORDERED: DEXTROSE 5%-WATER - 50 ML IVPB ONE (09:23)
[2019-01-06] MEDS: PREGABALIN 50 MG CAPSULE PO SCH ×2 (09:25→22:33)
[2019-01-06] MEDS: DULoxetine HCL 30 MG CAPSULE.DR (FP) PO SCH ×2 (09:25→22:33)
[2019-01-06] MEDS: LISINOPRIL 20 MG TABLET (FP) PO SCH (09:25)
[2019-01-06] MEDS: HYDROCHLOROTHIAZIDE 25 MG TABLET (FP) PO SCH (09:25)
[2019-01-06] MEDS: PANTOPRAZOLE 20 MG TABLET (FP) PO SCH (09:25)
[2019-01-06] MEDS: oxyCODONE HCL 10 MG SUSTAINED ACTING TABLET PO SCH ×2 (09:26→22:33)
[2019-01-06] MEDS: DOXYCYCLINE INJECTION 100 MG in DEXTROSE 5%-WATER - 100 ML IVPB SCH ×2 (09:26→21:52)
[2019-01-06] MEDS: HEPARIN NA (PORCINE) 5,000 UNITS/ML 1ML VIAL SQ SCH ×2 (09:26→22:37)
[2019-01-06] MEDS: CEFTRIAXONE 1 GM in DEXTROSE 5%-WATER - 50 ML IVPB SCH (09:26)
[2019-01-06] MEDS: guaiFENesin/CODEINE 10 ML UNIT-DOSE CUPS PO PRN ×2 (09:32→22:36)
--- NOTE | 2019-01-06 12:03 | PN ---
Progress Note (short form) - Note Progress Note: Still LOMAX but a little better. Some slight improvement in cough and coughing fits. No CP. Intake & Output 01/03/19 01/04/19 01/05/19 01/06/19 23:59 23:59 23:59 23:59 Intake Total 552 696 9115 285 Balance 073 831 4411 285 Weight 348 lb Last Vital Signs Temp Pulse Resp BP Pulse Ox 98.0 F 70 20 130/80 93 L 01/06/19 06:04 01/06/19 06:04 01/06/19 06:04 01/06/19 06:04 01/05/19 21:00 Active Medications Albuterol Sulfate (Ventolin 0.083% Nebulizer Soln -) 1 amp NEB Q4H PRN PRN Reason: SHORT OF BREATH/WHEEZING Albuterol/Ipratropium (Duoneb -) 1 amp NEB RQID [facility] Last Admin: 01/06/19 11:20 Dose: 1 amp Clonazepam (Klonopin -) 0.5 mg PO HS PRN PRN Reason: ANXIETY Last Admin: 01/05/19 21:00 Dose: 0.5 mg Duloxetine HCl (Cymbalta -) 30 mg PO BID [facility] Last Admin: 01/06/19 09:25 Dose: 30 mg Guaifenesin/Codeine Phosphate (Robitussin Ac -) 10 ml PO Q8H PRN PRN Reason: COUGH Last Admin: 01/06/19 09:32 Dose: 10 ml Heparin Sodium (Porcine) (Heparin -) 5,000 unit SQ BID [facility] Last Admin: 01/06/19 09:26 Dose: 5,000 unit Hydrochlorothiazide (Hctz -) 25 mg PO DAILY [facility] Last Admin: 01/06/19 09:25 Dose: 25 mg Ceftriaxone Sodium 1 gm/ (Dextrose) 50 mls @ 100 mls/hr IVPB DAILY [facility] Last Admin: 01/06/19 09:26 Dose: 100 mls/hr Doxycycline Hyclate 100 mg/ (Dextrose) 100 mls @ 50 mls/hr IVPB BID [facility] Last Admin: 01/06/19 09:26 Dose: 50 mls/hr Levothyroxine Sodium (Synthroid -) 25 mcg PO DAILY@0700 [facility] Last Admin: 01/06/19 06:04 Dose: 25 mcg Lisinopril (Prinivil) 20 mg PO DAILY [facility] Last Admin: 01/06/19 09:25 Dose: 20 mg Methylprednisolone Sodium Succinate (Solu-Medrol -) 40 mg IVPUSH Q6H-IV [facility] Last Admin: 01/06/19 09:25 Dose: 40 mg Non-Formulary Medication (Meloxicam [Mobic]) 15 mg PO DAILY [facility] Oxycodone HCl (Oxycontin -) 10 mg PO BID [facility] Last Admin: 01/06/19 09:26 Dose: 10 mg Pantoprazole Sodium (Protonix -) 20 mg PO DAILY [facility] Last Admin: 01/06/19 09:25 Dose: 20 mg Pregabalin (Lyrica -) 100 mg PO BID [facility] Last Admin: 01/06/19 09:25 Dose: 100 mg Tramadol HCl (Ultram -) 50 mg PO Q8H PRN PRN Reason: PAIN Last Admin: 01/05/19 19:55 Dose: 50 mg Gen: Awake and alert, NAD, frequent coughing Heart: RRR Lung: bilateral rhonchi, wheezes Abd: soft, nontender Ext: no edema Laboratory Results - last 24 hr 01/05/19 01/06/19 01/06/19 06:00 06:30 06:30 WBC 10.2 H RBC 4.50 Hgb 10.8 Hct 33.2 MCV 73.9 L MCH 23.9 L MCHC 32.4 RDW 17.5 H Plt Count 363 MPV 8.8 Sodium 136 Potassium 4.4 Chloride 98 Carbon Dioxide 31 Anion Gap 8 BUN 19 H Creatinine 0.7 Creat Clearance w eGFR 88.94 Random Glucose 137 H Calcium 8.7 Iron 26 L TIBC 416 Iron Saturation 6 L Total Bilirubin 0.3 AST 6 L ALT 15 Alkaline Phosphatase 73 Total Protein 7.5 Albumin 3.0 L A/P Pneumonia Acute Asthma Exacerbation h/o Guillain [place] Syndrome - continue antibiotics - f/u cultures - continue medrol at current dose, can consider tapering in AM if improved - inhaled bronchodilators standing and PRN - O2 to keep Spo2 >90% - will need outpt f/u of chest imaging to ensure resolution of infiltrates in 6 -8 weeks - DVT prophylaxis - Will need pre and post ambulation saturation check prior to discharge Dr Oliver
--- NOTE | 2019-01-06 12:18 | PN ---
Progress Note (short form) - Note Progress Note: Patient seen in follow up. No events overnight. No new complaints at this time. Inpatient Meds reviewed. Current Medications Generic Name Dose Route Start Last Admin Trade Name Freq PRN Reason Stop Dose Admin Albuterol Sulfate 1 amp 01/03/19 10:45 Ventolin 0.083% Nebulizer Soln - NEB Q4H PRN SHORT OF BREATH/WHEEZING Albuterol/Ipratropium 1 amp 01/03/19 12:00 01/06/19 11:20 Duoneb - NEB 1 amp RQID [facility] Administration Clonazepam 0.5 mg 01/04/19 20:07 01/05/19 21:00 Klonopin - PO 0.5 mg HS PRN Administration ANXIETY Duloxetine HCl 30 mg 01/04/19 22:00 01/06/19 09:25 Cymbalta - PO 30 mg BID [facility] Administration Guaifenesin/Codeine Phosphate 10 ml 01/02/19 15:02 01/06/19 09:32 Robitussin Ac - PO 10 ml Q8H PRN Administration COUGH Heparin Sodium (Porcine) 5,000 unit 01/02/19 22:00 01/06/19 09:26 Heparin - SQ 5,000 unit BID [facility] Administration Hydrochlorothiazide 25 mg 01/02/19 10:00 01/06/19 09:25 Hctz - PO 25 mg DAILY [facility] Administration Ceftriaxone Sodium 1 gm/ 50 mls @ 100 mls/hr 01/02/19 10:00 01/06/19 09:26 Dextrose IVPB 100 mls/hr DAILY [facility] Administration Doxycycline Hyclate 100 mg/ 100 mls @ 50 mls/hr 01/02/19 10:00 01/06/19 09:26 Dextrose IVPB 50 mls/hr BID [facility] Administration Levothyroxine Sodium 25 mcg 01/05/19 07:00 01/06/19 06:04 Synthroid - PO 25 mcg DAILY@0700 [facility] Administration Lisinopril 20 mg 01/02/19 10:00 01/06/19 09:25 Prinivil PO 20 mg DAILY [facility] Administration Methylprednisolone Sodium Succinate 40 mg 01/02/19 15:15 01/06/19 09:25 Solu-Medrol - IVPUSH 40 mg Q6H-IV [facility] Administration Non-Formulary Medication 15 mg 04/24/19 10:00 Meloxicam [Mobic] PO DAILY [facility] Oxycodone HCl 10 mg 01/05/19 22:00 01/06/19 09:26 Oxycontin - PO 10 mg BID [facility] Administration Pantoprazole Sodium 20 mg 01/02/19 10:00 01/06/19 09:25 Protonix - PO 20 mg DAILY [facility] Administration Pregabalin 100 mg 01/01/19 23:30 01/06/19 09:25 Lyrica - PO 100 mg BID [facility] Administration Tramadol HCl 50 mg 01/01/19 23:23 01/05/19 19:55 Ultram - PO 50 mg Q8H PRN Administration PAIN On examination: Last Vital Signs Temp Pulse Resp BP Pulse Ox 98.0 F 70 20 130/80 93 L 01/06/19 06:04 01/06/19 06:04 01/06/19 06:04 01/06/19 06:04 01/05/19 21:00 General: In no acute distress, sitting up in bed, obese. Extremities: No pallor or icterus. No pedal edema. CVS: S1, S2, regular, no gallop or murmur. Chest: good air entry bilaterally, clear Abdomen: Non-distended, non-tender. Neuro: Alert, oriented, non-focal. Labs: CBC, BMP 01/06/19 06:30 01/06/19 06:30 Assessment. Iron deficiency anemia, in the context of prior bariatric surgery. Denies menorrhagia. STEPHAN may be consequent to normal menstrual losses with compromised absorption, but cannot exclude possibility of concomitant occult GI hemorrhage. Check stool for occult blood, with consideration for endoscopy if positive. Will require screening colonoscopy soon in any event. Recommend repletion of iron intravenously, but in light of current sepsis, would recommend delaying infusion until discharged, as outpatient - deficit approximately 1g.
--- NOTE | 2019-01-06 15:45 | PN ---
Progress Note, Physician History of Present Illness: Pt breathing is better today Pt w/o CP, palp, abd pain. - Current Medication List Current Medications: Active Medications Albuterol Sulfate (Ventolin 0.083% Nebulizer Soln -) 1 amp NEB Q4H PRN PRN Reason: SHORT OF BREATH/WHEEZING Albuterol/Ipratropium (Duoneb -) 1 amp NEB RQID [facility] Last Admin: 01/06/19 15:44 Dose: 1 amp Clonazepam (Klonopin -) 0.5 mg PO HS PRN PRN Reason: ANXIETY Last Admin: 01/05/19 21:00 Dose: 0.5 mg Duloxetine HCl (Cymbalta -) 30 mg PO BID [facility] Last Admin: 01/06/19 09:25 Dose: 30 mg Guaifenesin/Codeine Phosphate (Robitussin Ac -) 10 ml PO Q8H PRN PRN Reason: COUGH Last Admin: 01/06/19 09:32 Dose: 10 ml Heparin Sodium (Porcine) (Heparin -) 5,000 unit SQ BID [facility] Last Admin: 01/06/19 09:26 Dose: 5,000 unit Hydrochlorothiazide (Hctz -) 25 mg PO DAILY [facility] Last Admin: 01/06/19 09:25 Dose: 25 mg Ceftriaxone Sodium 1 gm/ (Dextrose) 50 mls @ 100 mls/hr IVPB DAILY [facility] Last Admin: 01/06/19 09:26 Dose: 100 mls/hr Doxycycline Hyclate 100 mg/ (Dextrose) 100 mls @ 50 mls/hr IVPB BID [facility] Last Admin: 01/06/19 09:26 Dose: 50 mls/hr Levothyroxine Sodium (Synthroid -) 25 mcg PO DAILY@0700 [facility] Last Admin: 01/06/19 06:04 Dose: 25 mcg Lisinopril (Prinivil) 20 mg PO DAILY [facility] Last Admin: 01/06/19 09:25 Dose: 20 mg Methylprednisolone Sodium Succinate (Solu-Medrol -) 40 mg IVPUSH Q6H-IV [facility] Last Admin: 01/06/19 15:15 Dose: 40 mg Non-Formulary Medication (Meloxicam [Mobic]) 15 mg PO DAILY [facility] Oxycodone HCl (Oxycontin -) 10 mg PO BID [facility] Last Admin: 01/06/19 09:26 Dose: 10 mg Pantoprazole Sodium (Protonix -) 20 mg PO DAILY [facility] Last Admin: 01/06/19 09:25 Dose: 20 mg Pregabalin (Lyrica -) 100 mg PO BID [facility] Last Admin: 01/06/19 09:25 Dose: 100 mg - Objective Vital Signs: Vital Signs Temperature 98.0 F 01/06/19 10:00 Pulse Rate 105 H 01/06/19 10:00 Respiratory Rate 20 01/06/19 10:00 Blood Pressure 137/98 01/06/19 10:00 O2 Sat by Pulse Oximetry (%) 94 L 01/06/19 11:00 Constitutional: Yes: No Distress, Calm Cardiovascular: Yes: Regular Rate and Rhythm, S1, S2 Respiratory: Yes: Regular, Rhonchi, Wheezes Gastrointestinal: Yes: Normal Bowel Sounds, Soft. No: Tenderness Edema: No Neurological: Yes: Alert, Oriented Labs: CBC, BMP 01/06/19 06:30 01/06/19 06:30 Problem List - Problems (1) Pneumonia Code(s): J18.9 - PNEUMONIA, UNSPECIFIED ORGANISM Qualifiers: Pneumonia type: due to unspecified organism Laterality: unspecified laterality Lung location: unspecified part of lung Qualified Code(s): J18.9 - Pneumonia, unspecified organism (2) Asthma Code(s): J45.909 - UNSPECIFIED ASTHMA, UNCOMPLICATED (3) Cholelithiasis Code(s): K80.20 - CALCULUS OF GALLBLADDER W/O CHOLECYSTITIS W/O OBSTRUCTION (4) Anemia Code(s): D64.9 - ANEMIA, UNSPECIFIED (5) Leukopenia Code(s): D72.819 - DECREASED WHITE BLOOD CELL COUNT, UNSPECIFIED (6) Anemia Code(s): D64.9 - ANEMIA, UNSPECIFIED (7) History of Guillain-[place] syndrome Code(s): Z86.69 - PERSONAL HISTORY OF DIS OF THE NERVOUS SYS AND SENSE ORGANS (8) Abnormal thyroid blood test Code(s): R79.89 - OTHER SPECIFIED ABNORMAL FINDINGS OF BLOOD CHEMISTRY Assessment/Plan IV abtx IV steroids -to f/u with Pulmonary Chest CT scan report was reviewed Pulmonary, Heme consults are appreciated. AM labs
[2019-01-07] MEDS: methylPREDNISolone NA SUCC 40 MG/1 ML VIAL IVPUSH SCH ×3 (02:28→17:36)
[2019-01-07] MEDS: LEVOTHYROXINE NA 25 MCG TABLET (FP) PO SCH (06:16)
[2019-01-07 07:29] LABS: HEMOGLOBIN 10.8 GM/dL (10.7-15.3); MCH 23.9 pg (25.7-33.7); MCHC 32.5 g/dl (32.0-36.0); MEAN CELL VOLUME 73.6 fl (80-96); MEAN PLT VOLUME 8.2 fl (7.5-11.1); PLATELET COUNT 414 K/MM3 (134-434); RBC 4.49 M/mm3 (3.60-5.2); RDW 17.5 % (11.6-15.6); WHITE BLOOD COUNT 11.1 K/mm3 (4.0-10.0)
[2019-01-07] MEDS: ALBUTEROL SO4 2.5/IPRATROPIUM 0.5 INH SOL 3 ML VIAL.NEB. NEB SCH ×4 (07:43→20:57)
[2019-01-07 07:54] LABS: ANION GAP 8 MMOL/L (8-16); BLOOD UREA NITROGEN 26 mg/dL (7-18); CALCIUM 8.9 mg/dL (8.5-10.1); CHLORIDE 96 mmol/L (98-107); CO2 29 mmol/L (21-32); CREATININE 0.8 mg/dL (0.55-1.3); GLUCOSE,RANDOM 180 mg/dL (74-106); POTASSIUM 4.4 mmol/L (3.5-5.1); SODIUM 133 mmol/L (136-145)
[2019-01-07] MEDS ORDERED: cefTRIAXone SODIUM 1 GM VIAL ONE (10:52)
[2019-01-07] MEDS ORDERED: DEXTROSE 5%-WATER - 50 ML IVPB ONE (10:52)
[2019-01-07] MEDS: oxyCODONE HCL 10 MG SUSTAINED ACTING TABLET PO SCH ×2 (10:57→22:07)
[2019-01-07] MEDS: CEFTRIAXONE 1 GM in DEXTROSE 5%-WATER - 50 ML IVPB SCH (10:57)
[2019-01-07] MEDS: PREGABALIN 50 MG CAPSULE PO SCH ×2 (10:57→22:07)
[2019-01-07] MEDS: DULoxetine HCL 30 MG CAPSULE.DR (FP) PO SCH ×2 (10:57→22:08)
[2019-01-07] MEDS: HEPARIN NA (PORCINE) 5,000 UNITS/ML 1ML VIAL SQ SCH ×2 (10:59→22:08)
[2019-01-07] MEDS: LISINOPRIL 20 MG TABLET (FP) PO SCH (10:59)
[2019-01-07] MEDS: PANTOPRAZOLE 20 MG TABLET (FP) PO SCH (10:59)
[2019-01-07] MEDS: HYDROCHLOROTHIAZIDE 25 MG TABLET (FP) PO SCH (11:52)
[2019-01-07] MEDS: DOXYCYCLINE INJECTION 100 MG in DEXTROSE 5%-WATER - 100 ML IVPB SCH ×3 (11:53→22:00)
--- NOTE | 2019-01-07 12:41 | PN ---
Progress Note, Physician History of Present Illness: pulmonary alert,oob-ambulating ,less dyspneic,+cough - Current Medication List Current Medications: Active Medications Albuterol Sulfate (Ventolin 0.083% Nebulizer Soln -) 1 amp NEB Q4H PRN PRN Reason: SHORT OF BREATH/WHEEZING Albuterol/Ipratropium (Duoneb -) 1 amp NEB RQID [facility] Last Admin: 01/07/19 11:32 Dose: 1 amp Clonazepam (Klonopin -) 0.5 mg PO HS PRN PRN Reason: ANXIETY Last Admin: 01/05/19 21:00 Dose: 0.5 mg Duloxetine HCl (Cymbalta -) 30 mg PO BID [facility] Last Admin: 01/07/19 10:57 Dose: 30 mg Guaifenesin/Codeine Phosphate (Robitussin Ac -) 10 ml PO Q8H PRN PRN Reason: COUGH Last Admin: 01/06/19 22:36 Dose: 10 ml Heparin Sodium (Porcine) (Heparin -) 5,000 unit SQ BID [facility] Last Admin: 01/07/19 10:59 Dose: 5,000 unit Hydrochlorothiazide (Hctz -) 25 mg PO DAILY [facility] Last Admin: 01/07/19 11:52 Dose: Not Given Ceftriaxone Sodium 1 gm/ (Dextrose) 50 mls @ 100 mls/hr IVPB DAILY [facility] Last Admin: 01/07/19 10:57 Dose: 100 mls/hr Doxycycline Hyclate 100 mg/ (Dextrose) 100 mls @ 50 mls/hr IVPB BID [facility] Last Admin: 01/07/19 11:53 Dose: Not Given Levothyroxine Sodium (Synthroid -) 25 mcg PO DAILY@0700 [facility] Last Admin: 01/07/19 06:16 Dose: 25 mcg Lisinopril (Prinivil) 20 mg PO DAILY [facility] Last Admin: 01/07/19 10:59 Dose: 20 mg Methylprednisolone Sodium Succinate (Solu-Medrol -) 40 mg IVPUSH Q6H-IV [facility] Last Admin: 01/07/19 10:57 Dose: 40 mg Non-Formulary Medication (Meloxicam [Mobic]) 15 mg PO DAILY [facility] Oxycodone HCl (Oxycontin -) 10 mg PO BID [facility] Last Admin: 01/07/19 10:57 Dose: 10 mg Pantoprazole Sodium (Protonix -) 20 mg PO DAILY [facility] Last Admin: 01/07/19 10:59 Dose: 20 mg Pregabalin (Lyrica -) 100 mg PO BID [facility] Last Admin: 01/07/19 10:57 Dose: 100 mg - Objective Vital Signs: Vital Signs Temperature 98.1 F 01/07/19 06:00 Pulse Rate 55 L 01/07/19 06:00 Respiratory Rate 20 01/07/19 06:00 Blood Pressure 121/73 01/07/19 06:00 O2 Sat by Pulse Oximetry (%) 94 L 01/06/19 21:00 Constitutional: Yes: Well Nourished, Calm, Obese Eyes: Yes: WNL HENT: Yes: WNL Neck: Yes: WNL Cardiovascular: Yes: Regular Rate and Rhythm, S1, S2 Respiratory: Yes: Wheezes (bilateral wheezes) Gastrointestinal: Yes: Normal Bowel Sounds, Soft Extremities: Yes: WNL Edema: No Labs: CBC, BMP 01/07/19 06:40 01/07/19 06:40 Problem List - Problems (1) Asthma Code(s): J45.909 - UNSPECIFIED ASTHMA, UNCOMPLICATED (2) Pneumonia Code(s): J18.9 - PNEUMONIA, UNSPECIFIED ORGANISM Qualifiers: Pneumonia type: due to unspecified organism Laterality: unspecified laterality Lung location: unspecified part of lung Qualified Code(s): J18.9 - Pneumonia, unspecified organism (3) Polyneuropathy Code(s): G62.9 - POLYNEUROPATHY, UNSPECIFIED Assessment/Plan Problem List IMP ASTHMA EXACERBATION BILATERAL PNEUMONIA H/O GUILLAIN-BARRE SYNDROME POLYNEUROPATHY PLAN IV ABX INHALED BRONCHODILATORS MEDROL TAPER O2 COUGH MEDS PEAK FLOW DR ABDUL Problem List - Problems (1) Asthma Code(s): J45.909 - UNSPECIFIED ASTHMA, UNCOMPLICATED (2) Pneumonia Code(s): J18.9 - PNEUMONIA, UNSPECIFIED ORGANISM Qualifiers: Pneumonia type: due to unspecified organism Laterality: unspecified laterality Lung location: unspecified part of lung Qualified Code(s): J18.9 - Pneumonia, unspecified organism (3) Polyneuropathy Code(s): G62.9 - POLYNEUROPATHY, UNSPECIFIED
[2019-01-07] MEDS ORDERED: PT OWN MED DRAWER 7, Y5N ONE ×2 (13:13→15:11)
--- NOTE | 2019-01-07 17:37 | PN ---
Progress Note, Physician History of Present Illness: Pt breathing is better comparing with admission, still c/o LOMAX Pt w/o CP, palp, abd pain. - Current Medication List Current Medications: Active Medications Albuterol Sulfate (Ventolin 0.083% Nebulizer Soln -) 1 amp NEB Q4H PRN PRN Reason: SHORT OF BREATH/WHEEZING Albuterol/Ipratropium (Duoneb -) 1 amp NEB RQID [facility] Last Admin: 01/07/19 15:46 Dose: 1 amp Clonazepam (Klonopin -) 0.5 mg PO HS PRN PRN Reason: ANXIETY Last Admin: 01/05/19 21:00 Dose: 0.5 mg Duloxetine HCl (Cymbalta -) 30 mg PO BID [facility] Last Admin: 01/07/19 10:57 Dose: 30 mg Guaifenesin/Codeine Phosphate (Robitussin Ac -) 10 ml PO Q8H PRN PRN Reason: COUGH Last Admin: 01/06/19 22:36 Dose: 10 ml Heparin Sodium (Porcine) (Heparin -) 5,000 unit SQ BID [facility] Last Admin: 01/07/19 10:59 Dose: 5,000 unit Hydrochlorothiazide (Hctz -) 25 mg PO DAILY [facility] Last Admin: 01/07/19 11:52 Dose: Not Given Ceftriaxone Sodium 1 gm/ (Dextrose) 50 mls @ 100 mls/hr IVPB DAILY [facility] Last Admin: 01/07/19 10:57 Dose: 100 mls/hr Doxycycline Hyclate 100 mg/ (Dextrose) 100 mls @ 50 mls/hr IVPB BID [facility] Last Admin: 01/07/19 15:14 Dose: 50 mls/hr Levothyroxine Sodium (Synthroid -) 25 mcg PO DAILY@0700 [facility] Last Admin: 01/07/19 06:16 Dose: 25 mcg Lisinopril (Prinivil) 20 mg PO DAILY [facility] Last Admin: 01/07/19 10:59 Dose: 20 mg Methylprednisolone Sodium Succinate (Solu-Medrol -) 40 mg IVPUSH Q8H-IV [facility] Last Admin: 01/07/19 17:36 Dose: 40 mg Non-Formulary Medication (Meloxicam [Mobic]) 15 mg PO DAILY [facility] Oxycodone HCl (Oxycontin -) 10 mg PO BID [facility] Last Admin: 01/07/19 10:57 Dose: 10 mg Pantoprazole Sodium (Protonix -) 20 mg PO DAILY [facility] Last Admin: 01/07/19 10:59 Dose: 20 mg Pregabalin (Lyrica -) 100 mg PO BID [facility] Last Admin: 01/07/19 10:57 Dose: 100 mg - Objective Vital Signs: Vital Signs Temperature 98.3 F 01/07/19 10:00 Pulse Rate 73 01/07/19 10:00 Respiratory Rate 20 01/07/19 10:00 Blood Pressure 160/92 01/07/19 10:00 O2 Sat by Pulse Oximetry (%) 94 L 01/07/19 09:00 Constitutional: Yes: No Distress Cardiovascular: Yes: Regular Rate and Rhythm, S1 Respiratory: Yes: Regular, Rhonchi Gastrointestinal: Yes: Normal Bowel Sounds, Soft, Tenderness Edema: No Neurological: Yes: Alert, Oriented Labs: CBC, BMP 01/07/19 06:40 01/07/19 06:40 Problem List - Problems (1) Pneumonia Code(s): J18.9 - PNEUMONIA, UNSPECIFIED ORGANISM Qualifiers: Pneumonia type: due to unspecified organism Laterality: unspecified laterality Lung location: unspecified part of lung Qualified Code(s): J18.9 - Pneumonia, unspecified organism (2) Asthma Code(s): J45.909 - UNSPECIFIED ASTHMA, UNCOMPLICATED (3) Cholelithiasis Code(s): K80.20 - CALCULUS OF GALLBLADDER W/O CHOLECYSTITIS W/O OBSTRUCTION (4) Anemia Code(s): D64.9 - ANEMIA, UNSPECIFIED (5) Leukopenia Code(s): D72.819 - DECREASED WHITE BLOOD CELL COUNT, UNSPECIFIED (6) Anemia Code(s): D64.9 - ANEMIA, UNSPECIFIED (7) History of Guillain-[place] syndrome Code(s): Z86.69 - PERSONAL HISTORY OF DIS OF THE NERVOUS SYS AND SENSE ORGANS (8) Abnormal thyroid blood test Code(s): R79.89 - OTHER SPECIFIED ABNORMAL FINDINGS OF BLOOD CHEMISTRY Assessment/Plan IV abtx IV steroids -aby per Pulmonary Pulmonary, Heme consults are appreciated. pt would need pre and post O2 sat checked before DC AM labs
--- NOTE | 2019-01-07 17:39 | PN ---
Physical Exam: SUBJECTIVE: Patient seen and examined at beside. States her cough is improving, no fevers or chills or sputum production. Overall feels better. OBJECTIVE: Vital Signs Period Temp Pulse Resp BP Sys/Delarosa Pulse Ox Last 24 Hr 87 F-98.3 F 55-87 20-20 102-160/54-92 94-94 GENERAL: The patient is awake, alert, and fully oriented, in no acute distress. EYES: extraocular movements intact, sclera anicteric, conjunctiva clear. ENT: Ears normal, nares patent LUNGS: b/l wheezing HEART: Regular rate and rhythm, S1, S2 ABDOMEN: Soft, nontender, normoactive bowel sounds EXTREMITIES: warm, well-perfused NEUROLOGICAL: Cranial nerves II through XII grossly intact. Normal speech, gait not observed. PSYCH: Normal mood, normal affect. SKIN: Warm, dry Laboratory Results - last 24 hr 01/07/19 01/07/19 06:40 06:40 WBC 11.1 H RBC 4.49 Hgb 10.8 Hct 33.0 MCV 73.6 L MCH 23.9 L MCHC 32.5 RDW 17.5 H Plt Count 414 MPV 8.2 Sodium 133 L Potassium 4.4 Chloride 96 L Carbon Dioxide 29 Anion Gap 8 BUN 26 H Creatinine 0.8 Creat Clearance w eGFR 76.24 Random Glucose 180 H Calcium 8.9 Active Medications Generic Name Dose Route Start Last Admin Trade Name Freq PRN Reason Stop Dose Admin Albuterol Sulfate 1 amp 01/03/19 10:45 Ventolin 0.083% Nebulizer Soln - NEB Q4H PRN SHORT OF BREATH/WHEEZING Albuterol/Ipratropium 1 amp 01/03/19 12:00 01/07/19 15:46 Duoneb - NEB 1 amp RQID [facility] Administration Clonazepam 0.5 mg 01/04/19 20:07 01/05/19 21:00 Klonopin - PO 0.5 mg HS PRN Administration ANXIETY Duloxetine HCl 30 mg 01/04/19 22:00 01/07/19 10:57 Cymbalta - PO 30 mg BID [facility] Administration Guaifenesin/Codeine Phosphate 10 ml 01/02/19 15:02 01/06/19 22:36 Robitussin Ac - PO 10 ml Q8H PRN Administration COUGH Heparin Sodium (Porcine) 5,000 unit 01/02/19 22:00 01/07/19 10:59 Heparin - SQ 5,000 unit BID [facility] Administration Hydrochlorothiazide 25 mg 01/02/19 10:00 01/07/19 11:52 Hctz - PO Not Given DAILY [facility] Ceftriaxone Sodium 1 gm/ 50 mls @ 100 mls/hr 01/02/19 10:00 01/07/19 10:57 Dextrose IVPB 100 mls/hr DAILY [facility] Administration Doxycycline Hyclate 100 mg/ 100 mls @ 50 mls/hr 01/02/19 10:00 01/07/19 15:14 Dextrose IVPB 50 mls/hr BID [facility] Administration Levothyroxine Sodium 25 mcg 01/05/19 07:00 01/07/19 06:16 Synthroid - PO 25 mcg DAILY@0700 [facility] Administration Lisinopril 20 mg 01/02/19 10:00 01/07/19 10:59 Prinivil PO 20 mg DAILY [facility] Administration Methylprednisolone Sodium Succinate 40 mg 01/07/19 18:00 Solu-Medrol - IVPUSH Q8H-IV [facility] Non-Formulary Medication 15 mg 01/02/19 10:00 Meloxicam [Mobic] PO DAILY [facility] Oxycodone HCl 10 mg 01/05/19 22:00 01/07/19 10:57 Oxycontin - PO 10 mg BID [facility] Administration Pantoprazole Sodium 20 mg 01/02/19 10:00 01/07/19 10:59 Protonix - PO 20 mg DAILY [facility] Administration Pregabalin 100 mg 01/01/19 23:30 01/07/19 10:57 Lyrica - PO 100 mg BID [facility] Administration ASSESSMENT/PLAN: 48 y/o F w/PMH of asthma here for asthma found to have pna. Heme consulted for leukopenia. Iron deficiency anemia Hx of bariatric surgery -IV iron as an outpatient. -Check FOBT. Consider GI scoping if positive. -Lekopenia now resolved Visit type - Emergency Visit Emergency Visit: Yes ED Registration Date: 01/01/19 Care time: The patient presented to the Emergency Department on the above date and was hospitalized for further evaluation of their emergent condition. - New Patient This patient is new to me today: Yes Date on this admission: 01/07/19 - Critical Care Critical Care patient: No
[2019-01-07] MEDS ORDERED: FLUCONAZOLE 50 MG TABLET PO ONE (18:45)
[2019-01-07] MEDS: guaiFENesin/CODEINE 10 ML UNIT-DOSE CUPS PO PRN (22:09)
[2019-01-08] MEDS: clonazePAM 0.5 MG TABLET PO PRN (00:40)
[2019-01-08] MEDS: methylPREDNISolone NA SUCC 40 MG/1 ML VIAL IVPUSH SCH ×3 (02:17→17:14)
[2019-01-08] MEDS: LEVOTHYROXINE NA 25 MCG TABLET (FP) PO SCH (06:32)
[2019-01-08 07:14] LABS: HEMATOCRIT 33.6 % (32.4-45.2); HEMOGLOBIN 10.6 GM/dL (10.7-15.3); MCH 23.2 pg (25.7-33.7); MCHC 31.4 g/dl (32.0-36.0); MEAN CELL VOLUME 73.7 fl (80-96); MEAN PLT VOLUME 8.2 fl (7.5-11.1); PLATELET COUNT 423 K/MM3 (134-434); RBC 4.56 M/mm3 (3.60-5.2); RDW 17.1 % (11.6-15.6); WHITE BLOOD COUNT 11.6 K/mm3 (4.0-10.0)
[2019-01-08 07:24] LABS: ALBUMIN 2.8 g/dl (3.4-5.0); ALK PHOS 83 U/L (45-117); ANION GAP 9 MMOL/L (8-16); BILIRUBIN,TOTAL 0.2 mg/dL (0.2-1); BLOOD UREA NITROGEN 24 mg/dL (7-18); CALCIUM 8.7 mg/dL (8.5-10.1); CHLORIDE 94 mmol/L (98-107); CO2 30 mmol/L (21-32); CREATININE 0.7 mg/dL (0.55-1.3); GLUCOSE,RANDOM 156 mg/dL (74-106); POTASSIUM 4.7 mmol/L (3.5-5.1); SGOT/AST 9 U/L (15-37); SGPT/ALT 19 U/L (13-61); SODIUM 133 mmol/L (136-145); TOT PROT 7.2 g/dl (6.4-8.2)
[2019-01-08] MEDS: guaiFENesin/CODEINE 10 ML UNIT-DOSE CUPS PO PRN (08:16)
[2019-01-08] MEDS: ALBUTEROL SO4 2.5/IPRATROPIUM 0.5 INH SOL 3 ML VIAL.NEB. NEB SCH ×4 (08:44→21:10)
[2019-01-08] MEDS ORDERED: DEXTROSE 5%-WATER - 50 ML IVPB ONE (09:08)
[2019-01-08] MEDS ORDERED: PT OWN MED DRAWER 7, Y5N ONE (09:08)
[2019-01-08] MEDS ORDERED: cefTRIAXone SODIUM 1 GM VIAL ONE (09:08)
[2019-01-08] MEDS: DOXYCYCLINE INJECTION 100 MG in DEXTROSE 5%-WATER - 100 ML IVPB SCH ×2 (09:12→21:49)
[2019-01-08] MEDS: HEPARIN NA (PORCINE) 5,000 UNITS/ML 1ML VIAL SQ SCH ×2 (09:13→21:49)
[2019-01-08] MEDS: CEFTRIAXONE 1 GM in DEXTROSE 5%-WATER - 50 ML IVPB SCH (09:13)
[2019-01-08] MEDS: DULoxetine HCL 30 MG CAPSULE.DR (FP) PO SCH ×2 (09:14→21:48)
[2019-01-08] MEDS: HYDROCHLOROTHIAZIDE 25 MG TABLET (FP) PO SCH (09:14)
[2019-01-08] MEDS: PREGABALIN 50 MG CAPSULE PO SCH ×2 (09:14→21:48)
[2019-01-08] MEDS: LISINOPRIL 20 MG TABLET (FP) PO SCH (09:14)
[2019-01-08] MEDS: PANTOPRAZOLE 20 MG TABLET (FP) PO SCH (09:14)
[2019-01-08] MEDS: oxyCODONE HCL 10 MG SUSTAINED ACTING TABLET PO SCH ×2 (09:15→21:48)
[2019-01-08 10:09] LABS: HGB SOLUBILITY Negative (Negative); Hgb A 98.5 % (96.4-98.8); Hgb C 0 % (0.0); Hgb F 0 % (0.0-2.0); Hgb S 0 % (0.0)
--- NOTE | 2019-01-08 14:24 | PN ---
Progress Note, Physician History of Present Illness: Pt breathing is better comparing with admission, still c/o LOMAX Pt w/o CP, palp, abd pain. - Current Medication List Current Medications: Active Medications Albuterol Sulfate (Ventolin 0.083% Nebulizer Soln -) 1 amp NEB Q4H PRN PRN Reason: SHORT OF BREATH/WHEEZING Albuterol/Ipratropium (Duoneb -) 1 amp NEB RQID [facility] Last Admin: 01/08/19 11:57 Dose: 1 amp Clonazepam (Klonopin -) 0.5 mg PO HS PRN PRN Reason: ANXIETY Last Admin: 01/08/19 00:40 Dose: 0.5 mg Duloxetine HCl (Cymbalta -) 30 mg PO BID [facility] Last Admin: 01/08/19 09:14 Dose: 30 mg Guaifenesin/Codeine Phosphate (Robitussin Ac -) 10 ml PO Q8H PRN PRN Reason: COUGH Last Admin: 01/08/19 08:16 Dose: 10 ml Heparin Sodium (Porcine) (Heparin -) 5,000 unit SQ BID [facility] Last Admin: 01/08/19 09:13 Dose: 5,000 unit Hydrochlorothiazide (Hctz -) 25 mg PO DAILY [facility] Last Admin: 01/08/19 09:14 Dose: 25 mg Ceftriaxone Sodium 1 gm/ (Dextrose) 50 mls @ 100 mls/hr IVPB DAILY [facility] Last Admin: 01/08/19 09:13 Dose: 100 mls/hr Doxycycline Hyclate 100 mg/ (Dextrose) 100 mls @ 50 mls/hr IVPB BID [facility] Last Admin: 01/08/19 09:12 Dose: 50 mls/hr Levothyroxine Sodium (Synthroid -) 25 mcg PO DAILY@0700 [facility] Last Admin: 01/08/19 06:32 Dose: 25 mcg Lisinopril (Prinivil) 20 mg PO DAILY [facility] Last Admin: 01/08/19 09:14 Dose: 20 mg Methylprednisolone Sodium Succinate (Solu-Medrol -) 40 mg IVPUSH Q8H-IV [facility] Last Admin: 01/08/19 09:15 Dose: 40 mg Non-Formulary Medication (Meloxicam [Mobic]) 15 mg PO DAILY [facility] Oxycodone HCl (Oxycontin -) 10 mg PO BID [facility] Last Admin: 01/08/19 09:15 Dose: 10 mg Pantoprazole Sodium (Protonix -) 20 mg PO DAILY [facility] Last Admin: 01/08/19 09:14 Dose: 20 mg Pregabalin (Lyrica -) 100 mg PO BID [facility] Last Admin: 01/08/19 09:14 Dose: 100 mg - Objective Vital Signs: Vital Signs Temperature 97.6 F 01/08/19 14:00 Pulse Rate 77 01/08/19 14:00 Respiratory Rate 20 01/08/19 14:00 Blood Pressure 128/44 L 01/08/19 14:00 O2 Sat by Pulse Oximetry (%) 95 01/07/19 21:00 Constitutional: Yes: No Distress, Calm Cardiovascular: Yes: Regular Rate and Rhythm, S1, S2 Respiratory: Yes: Regular, Rhonchi Gastrointestinal: Yes: Normal Bowel Sounds, Soft. No: Tenderness Edema: No Neurological: Yes: Alert, Oriented Labs: CBC, BMP 01/08/19 06:00 01/08/19 06:00 Problem List - Problems (1) Pneumonia Code(s): J18.9 - PNEUMONIA, UNSPECIFIED ORGANISM Qualifiers: Pneumonia type: due to unspecified organism Laterality: unspecified laterality Lung location: unspecified part of lung Qualified Code(s): J18.9 - Pneumonia, unspecified organism (2) Asthma Code(s): J45.909 - UNSPECIFIED ASTHMA, UNCOMPLICATED (3) Cholelithiasis Code(s): K80.20 - CALCULUS OF GALLBLADDER W/O CHOLECYSTITIS W/O OBSTRUCTION (4) Anemia Code(s): D64.9 - ANEMIA, UNSPECIFIED Assessment/Plan IV abtx IV steroids -to be tapered per Pulmonary Pulmonary, Heme consults are appreciated. AM labs
--- NOTE | 2019-01-08 15:25 | PN ---
Progress Note, Physician History of Present Illness: pulmonary alert,feeling better,less dyspneic - Current Medication List Current Medications: Active Medications Albuterol Sulfate (Ventolin 0.083% Nebulizer Soln -) 1 amp NEB Q4H PRN PRN Reason: SHORT OF BREATH/WHEEZING Albuterol/Ipratropium (Duoneb -) 1 amp NEB RQID [facility] Last Admin: 01/08/19 11:57 Dose: 1 amp Clonazepam (Klonopin -) 0.5 mg PO HS PRN PRN Reason: ANXIETY Last Admin: 01/08/19 00:40 Dose: 0.5 mg Duloxetine HCl (Cymbalta -) 30 mg PO BID [facility] Last Admin: 01/08/19 09:14 Dose: 30 mg Guaifenesin/Codeine Phosphate (Robitussin Ac -) 10 ml PO Q8H PRN PRN Reason: COUGH Last Admin: 01/08/19 08:16 Dose: 10 ml Heparin Sodium (Porcine) (Heparin -) 5,000 unit SQ BID [facility] Last Admin: 01/08/19 09:13 Dose: 5,000 unit Hydrochlorothiazide (Hctz -) 25 mg PO DAILY [facility] Last Admin: 01/08/19 09:14 Dose: 25 mg Ceftriaxone Sodium 1 gm/ (Dextrose) 50 mls @ 100 mls/hr IVPB DAILY [facility] Last Admin: 01/08/19 09:13 Dose: 100 mls/hr Doxycycline Hyclate 100 mg/ (Dextrose) 100 mls @ 50 mls/hr IVPB BID [facility] Last Admin: 01/08/19 09:12 Dose: 50 mls/hr Levothyroxine Sodium (Synthroid -) 25 mcg PO DAILY@0700 [facility] Last Admin: 01/08/19 06:32 Dose: 25 mcg Lisinopril (Prinivil) 20 mg PO DAILY [facility] Last Admin: 01/08/19 09:14 Dose: 20 mg Methylprednisolone Sodium Succinate (Solu-Medrol -) 40 mg IVPUSH Q8H-IV [facility] Last Admin: 01/08/19 09:15 Dose: 40 mg Non-Formulary Medication (Meloxicam [Mobic]) 15 mg PO DAILY [facility] Oxycodone HCl (Oxycontin -) 10 mg PO BID [facility] Last Admin: 01/08/19 09:15 Dose: 10 mg Pantoprazole Sodium (Protonix -) 20 mg PO DAILY [facility] Last Admin: 01/08/19 09:14 Dose: 20 mg Pregabalin (Lyrica -) 100 mg PO BID [facility] Last Admin: 01/08/19 09:14 Dose: 100 mg - Objective Vital Signs: Vital Signs Temperature 97.6 F 01/08/19 14:00 Pulse Rate 77 01/08/19 14:00 Respiratory Rate 20 01/08/19 14:00 Blood Pressure 128/44 L 01/08/19 14:00 O2 Sat by Pulse Oximetry (%) 95 01/07/19 21:00 Constitutional: Yes: Well Nourished, Calm, Obese Eyes: Yes: WNL HENT: Yes: WNL Neck: Yes: WNL Cardiovascular: Yes: Regular Rate and Rhythm, S1, S2 Respiratory: Yes: Rhonchi (few scattered rhonchi) Gastrointestinal: Yes: Normal Bowel Sounds, Soft Extremities: Yes: WNL Edema: No Labs: CBC, BMP 01/08/19 06:00 01/08/19 06:00 Problem List - Problems (1) Asthma Code(s): J45.909 - UNSPECIFIED ASTHMA, UNCOMPLICATED (2) Pneumonia Code(s): J18.9 - PNEUMONIA, UNSPECIFIED ORGANISM Qualifiers: Pneumonia type: due to unspecified organism Laterality: unspecified laterality Lung location: unspecified part of lung Qualified Code(s): J18.9 - Pneumonia, unspecified organism (3) Polyneuropathy Code(s): G62.9 - POLYNEUROPATHY, UNSPECIFIED Assessment/Plan Problem List IMP ASTHMA EXACERBATION BILATERAL PNEUMONIA H/O GUILLAIN-BARRE SYNDROME POLYNEUROPATHY PLAN IV ABX PER ID INHALED BRONCHODILATORS MEDROL TAPER O2 COUGH MEDS PEAK FLOW DR ABDUL Problem List - Problems (1) Asthma Code(s): J45.909 - UNSPECIFIED ASTHMA, UNCOMPLICATED (2) Pneumonia Code(s): J18.9 - PNEUMONIA, UNSPECIFIED ORGANISM Qualifiers: Pneumonia type: due to unspecified organism Laterality: unspecified laterality Lung location: unspecified part of lung Qualified Code(s): J18.9 - Pneumonia, unspecified organism (3) Polyneuropathy Code(s): G62.9 - POLYNEUROPATHY, UNSPECIFIED
--- NOTE | 2019-01-08 18:43 | PN ---
Physical Exam: SUBJECTIVE: Patient seen and examined at bedside. Feeling better today. Cough is improving and states she is ambulating and breathing is back to her baseline. OBJECTIVE: Vital Signs Period Temp Pulse Resp BP Sys/Delarosa Pulse Ox Last 24 Hr 97.6 F-98.0 F 53-103 18-20 124-154/44-80 95-95 GENERAL: The patient is awake, alert, and fully oriented, in no acute distress. EYES: extraocular movements intact, sclera anicteric, conjunctiva clear. ENT: Ears normal, nares patent LUNGS: b/l wheezing HEART: Regular rate and rhythm, S1, S2 ABDOMEN: Soft, nontender, normoactive bowel sounds EXTREMITIES: warm, well-perfused NEUROLOGICAL: Cranial nerves II through XII grossly intact. Normal speech, gait not observed. PSYCH: Normal mood, normal affect. SKIN: Warm, dry Laboratory Results - last 24 hr 01/05/19 01/05/19 01/08/19 06:00 06:00 06:00 WBC 11.6 H RBC 4.56 Hgb 10.6 L Hct 33.6 MCV 73.7 L MCH 23.2 L MCHC 31.4 L RDW 17.1 H Plt Count 423 MPV 8.2 Hemoglobin A 98.5 Hemoglobin A2 1.5 L Hemoglobin C 0 Hemoglobin S 0 Variant Hemoglobin 0.0 Hemoglobin Interpret Maternal Rh 0 Hemoglobin Solubility Negative Sodium Potassium Chloride Carbon Dioxide Anion Gap BUN Creatinine Creat Clearance w eGFR Random Glucose Calcium Total Bilirubin AST ALT Alkaline Phosphatase Total Protein Albumin Serum OVIDIO Interpret IEP IgG 1406 IEP IgA 651 H IEP IgM 154 01/08/19 06:00 WBC RBC Hgb Hct MCV MCH MCHC RDW Plt Count MPV Hemoglobin A Hemoglobin A2 Hemoglobin C Hemoglobin S Variant Hemoglobin Hemoglobin Interpret Maternal Rh Hemoglobin Solubility Sodium 133 L Potassium 4.7 Chloride 94 L Carbon Dioxide 30 Anion Gap 9 BUN 24 H Creatinine 0.7 Creat Clearance w eGFR 88.94 Random Glucose 156 H Calcium 8.7 Total Bilirubin 0.2 AST 9 L ALT 19 Alkaline Phosphatase 83 Total Protein 7.2 Albumin 2.8 L Serum OVIDIO Interpret IEP IgG IEP IgA IEP IgM Active Medications Generic Name Dose Route Start Last Admin Trade Name Freq PRN Reason Stop Dose Admin Albuterol Sulfate 1 amp 01/03/19 10:45 Ventolin 0.083% Nebulizer Soln - NEB Q4H PRN SHORT OF BREATH/WHEEZING Albuterol/Ipratropium 1 amp 01/03/19 12:00 01/08/19 16:09 Duoneb - NEB 1 amp RQID [facility] Administration Clonazepam 0.5 mg 01/04/19 20:07 01/08/19 00:40 Klonopin - PO 0.5 mg HS PRN Administration ANXIETY Duloxetine HCl 30 mg 01/04/19 22:00 01/08/19 09:14 Cymbalta - PO 30 mg BID [facility] Administration Guaifenesin/Codeine Phosphate 10 ml 01/02/19 15:02 01/08/19 08:16 Robitussin Ac - PO 10 ml Q8H PRN Administration COUGH Heparin Sodium (Porcine) 5,000 unit 01/02/19 22:00 01/08/19 09:13 Heparin - SQ 5,000 unit BID [facility] Administration Hydrochlorothiazide 25 mg 01/02/19 10:00 01/08/19 09:14 Hctz - PO 25 mg DAILY [facility] Administration Ceftriaxone Sodium 1 gm/ 50 mls @ 100 mls/hr 01/02/19 10:00 01/08/19 09:13 Dextrose IVPB 100 mls/hr DAILY [facility] Administration Doxycycline Hyclate 100 mg/ 100 mls @ 50 mls/hr 01/02/19 10:00 01/08/19 09:12 Dextrose IVPB 50 mls/hr BID [facility] Administration Levothyroxine Sodium 25 mcg 01/05/19 07:00 01/08/19 06:32 Synthroid - PO 25 mcg DAILY@0700 [facility] Administration Lisinopril 20 mg 01/02/19 10:00 01/08/19 09:14 Prinivil PO 20 mg DAILY [facility] Administration Methylprednisolone Sodium Succinate 40 mg 01/07/19 18:00 01/08/19 17:14 Solu-Medrol - IVPUSH 01/09/19 02:00 40 mg Q8H-IV [facility] Administration Methylprednisolone Sodium Succinate 40 mg 01/09/19 10:00 Solu-Medrol - IVPUSH Q12H [facility] Non-Formulary Medication 15 mg 01/02/19 10:00 Meloxicam [Mobic] PO DAILY [facility] Oxycodone HCl 10 mg 01/05/19 22:00 01/08/19 09:15 Oxycontin - PO 10 mg BID [facility] Administration Pantoprazole Sodium 20 mg 01/02/19 10:00 01/08/19 09:14 Protonix - PO 20 mg DAILY [facility] Administration Pregabalin 100 mg 01/01/19 23:30 01/08/19 09:14 Lyrica - PO 100 mg BID [facility] Administration ASSESSMENT/PLAN: 48 y/o F w/PMH of asthma here for asthma found to have pna. Heme consulted for leukopenia. Iron deficiency anemia Hx of bariatric surgery -IV iron to be started tomorrow -Check FOBT. Consider GI scoping if positive. -Lekopenia now resolved Visit type - Emergency Visit Emergency Visit: Yes ED Registration Date: 01/01/19 Care time: The patient presented to the Emergency Department on the above date and was hospitalized for further evaluation of their emergent condition. - New Patient This patient is new to me today: No - Critical Care Critical Care patient: No
--- NOTE | 2019-01-08 19:08 | PN ---
Teaching Attending Note Name of Resident: Anand Can ATTENDING PHYSICIAN STATEMENT I saw and evaluated the patient. I reviewed the resident's note and discussed the case with the resident. I agree with the resident's findings and plan as documented. SUBJECTIVE: Patient seen and examined Still with SOB and Dyspnea on minimal exertion . Last Vital Signs Temp Pulse Resp BP Pulse Ox 97.6 F 103 H 20 128/44 L 95 01/08/19 14:00 01/08/19 15:55 01/08/19 14:00 01/08/19 14:00 01/08/19 16:05 Cor: RSR, No murmurs, No gallops Lungs: rhonchi , diminished breath sounds Abd: Soft, Normal bowel sounds, No organomegaly, obese ExtLE edema LE Skin: No rashes,m Integument intact CBC, BMP 01/08/19 06:00 01/08/19 06:00 Current Medications Generic Name Dose Route Start Last Admin Trade Name Freq PRN Reason Stop Dose Admin Albuterol Sulfate 1 amp 01/03/19 10:45 Ventolin 0.083% Nebulizer Soln - NEB Q4H PRN SHORT OF BREATH/WHEEZING Albuterol/Ipratropium 1 amp 01/03/19 12:00 01/08/19 16:09 Duoneb - NEB 1 amp RQID [facility] Administration Clonazepam 0.5 mg 01/04/19 20:07 01/08/19 00:40 Klonopin - PO 0.5 mg HS PRN Administration ANXIETY Duloxetine HCl 30 mg 01/04/19 22:00 01/08/19 09:14 Cymbalta - PO 30 mg BID [facility] Administration Guaifenesin/Codeine Phosphate 10 ml 01/02/19 15:02 01/08/19 08:16 Robitussin Ac - PO 10 ml Q8H PRN Administration COUGH Heparin Sodium (Porcine) 5,000 unit 01/02/19 22:00 01/08/19 09:13 Heparin - SQ 5,000 unit BID [facility] Administration Hydrochlorothiazide 25 mg 01/02/19 10:00 01/08/19 09:14 Hctz - PO 25 mg DAILY [facility] Administration Ceftriaxone Sodium 1 gm/ 50 mls @ 100 mls/hr 01/02/19 10:00 01/08/19 09:13 Dextrose IVPB 100 mls/hr DAILY [facility] Administration Doxycycline Hyclate 100 mg/ 100 mls @ 50 mls/hr 01/02/19 10:00 01/08/19 09:12 Dextrose IVPB 50 mls/hr BID [facility] Administration Iron Sucrose 200 mg/ Sodium 100 mls @ 200 mls/hr 01/09/19 10:00 Chloride IVPB 01/09/19 10:29 ONCE ONE Levothyroxine Sodium 25 mcg 01/05/19 07:00 01/08/19 06:32 Synthroid - PO 25 mcg DAILY@0700 [facility] Administration Lisinopril 20 mg 01/02/19 10:00 01/08/19 09:14 Prinivil PO 20 mg DAILY [facility] Administration Methylprednisolone Sodium Succinate 40 mg 01/07/19 18:00 01/08/19 17:14 Solu-Medrol - IVPUSH 01/09/19 02:00 40 mg Q8H-IV [facility] Administration Methylprednisolone Sodium Succinate 40 mg 01/09/19 10:00 Solu-Medrol - IVPUSH Q12H [facility] Non-Formulary Medication 15 mg 01/02/19 10:00 Meloxicam [Mobic] PO DAILY [facility] Oxycodone HCl 10 mg 01/05/19 22:00 01/08/19 09:15 Oxycontin - PO 10 mg BID [facility] Administration Pantoprazole Sodium 20 mg 01/02/19 10:00 01/08/19 09:14 Protonix - PO 20 mg DAILY [facility] Administration Pregabalin 100 mg 01/01/19 23:30 01/08/19 09:14 Lyrica - PO 100 mg BID [facility] Administration OBJECTIVE: Impression: Pneumonia Fe++ deficiency Plan: Consider IV Venofer ASSESSMENT AND PLAN: Problem List - Problems (1) Anemia Code(s): D64.9 - ANEMIA, UNSPECIFIED (2) Pneumonia Code(s): J18.9 - PNEUMONIA, UNSPECIFIED ORGANISM Qualifiers: Pneumonia type: due to unspecified organism Laterality: unspecified laterality Lung location: unspecified part of lung Qualified Code(s): J18.9 - Pneumonia, unspecified organism (3) Polyneuropathy Code(s): G62.9 - POLYNEUROPATHY, UNSPECIFIED (4) Lumbar radiculopathy Code(s): M54.16 - RADICULOPATHY, LUMBAR REGION (5) Asthma Code(s): J45.909 - UNSPECIFIED ASTHMA, UNCOMPLICATED
[2019-01-09] MEDS: clonazePAM 0.5 MG TABLET PO PRN (01:50)
[2019-01-09] MEDS: methylPREDNISolone NA SUCC 40 MG/1 ML VIAL IVPUSH SCH ×3 (02:45→22:36)
[2019-01-09] MEDS: LEVOTHYROXINE NA 25 MCG TABLET (FP) PO SCH (05:59)
[2019-01-09] MEDS: ALBUTEROL SO4 2.5/IPRATROPIUM 0.5 INH SOL 3 ML VIAL.NEB. NEB SCH ×4 (07:45→22:09)
[2019-01-09 08:03] LABS: ANION GAP 4 MMOL/L (8-16); BLOOD UREA NITROGEN 28 mg/dL (7-18); CALCIUM 8.9 mg/dL (8.5-10.1); CHLORIDE 93 mmol/L (98-107); CO2 35 mmol/L (21-32); CREATININE 0.7 mg/dL (0.55-1.3); GLUCOSE,RANDOM 160 mg/dL (74-106); SODIUM 133 mmol/L (136-145)
[2019-01-09] MEDS ORDERED: PT OWN MED DRAWER 7, Y5N ONE ×2 (09:51→22:20)
[2019-01-09] MEDS ORDERED: DEXTROSE 5%-WATER - 50 ML IVPB ONE (09:51)
[2019-01-09] MEDS ORDERED: cefTRIAXone SODIUM 1 GM VIAL ONE (09:51)
[2019-01-09] MEDS: HEPARIN NA (PORCINE) 5,000 UNITS/ML 1ML VIAL SQ SCH ×2 (09:53→22:35)
[2019-01-09] MEDS: CEFTRIAXONE 1 GM in DEXTROSE 5%-WATER - 50 ML IVPB SCH (09:53)
[2019-01-09] MEDS: DOXYCYCLINE INJECTION 100 MG in DEXTROSE 5%-WATER - 100 ML IVPB SCH ×2 (09:53→22:37)
[2019-01-09] MEDS: oxyCODONE HCL 10 MG SUSTAINED ACTING TABLET PO SCH ×2 (09:54→22:36)
[2019-01-09] MEDS: LISINOPRIL 20 MG TABLET (FP) PO SCH (09:54)
[2019-01-09] MEDS: PREGABALIN 50 MG CAPSULE PO SCH ×2 (09:54→22:36)
[2019-01-09] MEDS: HYDROCHLOROTHIAZIDE 25 MG TABLET (FP) PO SCH (09:54)
[2019-01-09] MEDS: PANTOPRAZOLE 20 MG TABLET (FP) PO SCH (09:54)
[2019-01-09] MEDS: DULoxetine HCL 30 MG CAPSULE.DR (FP) PO SCH ×2 (09:54→22:35)
[2019-01-09] MEDS ORDERED: IRON SUCROSE INJECTION 200 MG in SODIUM CHLORIDE 90 ML IVPB ONE (10:00)
--- NOTE | 2019-01-09 10:09 | PN ---
Progress Note, Physician History of Present Illness: Pt breathing is better comparing with admission, still c/o LOMAX and coughing. Pt w/o CP, palp, abd pain. - Current Medication List Current Medications: Active Medications Albuterol Sulfate (Ventolin 0.083% Nebulizer Soln -) 1 amp NEB Q4H PRN PRN Reason: SHORT OF BREATH/WHEEZING Albuterol/Ipratropium (Duoneb -) 1 amp NEB RQID [facility] Last Admin: 01/08/19 21:10 Dose: 1 amp Clonazepam (Klonopin -) 0.5 mg PO HS PRN PRN Reason: ANXIETY Last Admin: 01/09/19 01:50 Dose: 0.5 mg Duloxetine HCl (Cymbalta -) 30 mg PO BID [facility] Last Admin: 01/08/19 21:48 Dose: 30 mg Guaifenesin/Codeine Phosphate (Robitussin Ac -) 10 ml PO Q8H PRN PRN Reason: COUGH Last Admin: 01/08/19 08:16 Dose: 10 ml Heparin Sodium (Porcine) (Heparin -) 5,000 unit SQ BID [facility] Last Admin: 01/08/19 21:49 Dose: 5,000 unit Hydrochlorothiazide (Hctz -) 25 mg PO DAILY [facility] Last Admin: 01/08/19 09:14 Dose: 25 mg Ceftriaxone Sodium 1 gm/ (Dextrose) 50 mls @ 100 mls/hr IVPB DAILY [facility] Last Admin: 01/08/19 09:13 Dose: 100 mls/hr Doxycycline Hyclate 100 mg/ (Dextrose) 100 mls @ 50 mls/hr IVPB BID [facility] Last Admin: 01/08/19 21:49 Dose: 50 mls/hr Iron Sucrose 200 mg/ Sodium (Chloride) 100 mls @ 200 mls/hr IVPB ONCE ONE Stop: 01/09/19 10:29 Levothyroxine Sodium (Synthroid -) 25 mcg PO DAILY@0700 [facility] Last Admin: 01/09/19 05:59 Dose: 25 mcg Lisinopril (Prinivil) 20 mg PO DAILY [facility] Last Admin: 01/08/19 09:14 Dose: 20 mg Methylprednisolone Sodium Succinate (Solu-Medrol -) 40 mg IVPUSH Q12H [facility] Non-Formulary Medication (Meloxicam [Mobic]) 15 mg PO DAILY [facility] Oxycodone HCl (Oxycontin -) 10 mg PO BID [facility] Last Admin: 01/08/19 21:48 Dose: 10 mg Pantoprazole Sodium (Protonix -) 20 mg PO DAILY [facility] Last Admin: 01/08/19 09:14 Dose: 20 mg Pregabalin (Lyrica -) 100 mg PO BID [facility] Last Admin: 01/08/19 21:48 Dose: 100 mg - Objective Vital Signs: Vital Signs Temperature 97.9 F 01/09/19 08:00 Pulse Rate 106 H 01/09/19 08:00 Respiratory Rate 20 01/09/19 08:00 Blood Pressure 106/55 L 01/09/19 08:00 O2 Sat by Pulse Oximetry (%) 95 01/08/19 20:10 Constitutional: Yes: No Distress, Calm Cardiovascular: Yes: Regular Rate and Rhythm, S1, S2 Respiratory: Yes: Regular, Rhonchi Gastrointestinal: Yes: Normal Bowel Sounds, Soft. No: Tenderness Edema: No Neurological: Yes: Alert, Oriented Labs: CBC, BMP 01/08/19 06:00 01/09/19 05:20 Problem List - Problems (1) Pneumonia Code(s): J18.9 - PNEUMONIA, UNSPECIFIED ORGANISM Qualifiers: Pneumonia type: due to unspecified organism Laterality: unspecified laterality Lung location: unspecified part of lung Qualified Code(s): J18.9 - Pneumonia, unspecified organism (2) Asthma Code(s): J45.909 - UNSPECIFIED ASTHMA, UNCOMPLICATED (3) Cholelithiasis Code(s): K80.20 - CALCULUS OF GALLBLADDER W/O CHOLECYSTITIS W/O OBSTRUCTION (4) Anemia Code(s): D64.9 - ANEMIA, UNSPECIFIED Assessment/Plan IV abtx IV steroids -to be tapered per Pulmonary. Pre and post O2 sat was noticed; pt needs O2 supplementation Pulmonary, Heme consults are appreciated. Increase water intake -d/w pt AM labs
--- NOTE | 2019-01-09 11:54 | PN ---
Progress Note, Physician History of Present Illness: pulmonary alert,feeling better,-resp distress - Current Medication List Current Medications: Active Medications Albuterol Sulfate (Ventolin 0.083% Nebulizer Soln -) 1 amp NEB Q4H PRN PRN Reason: SHORT OF BREATH/WHEEZING Albuterol/Ipratropium (Duoneb -) 1 amp NEB RQID [facility] Last Admin: 01/09/19 07:45 Dose: 1 amp Clonazepam (Klonopin -) 0.5 mg PO HS PRN PRN Reason: ANXIETY Last Admin: 01/09/19 01:50 Dose: 0.5 mg Duloxetine HCl (Cymbalta -) 30 mg PO BID [facility] Last Admin: 01/09/19 09:54 Dose: 30 mg Guaifenesin/Codeine Phosphate (Robitussin Ac -) 10 ml PO Q8H PRN PRN Reason: COUGH Last Admin: 01/08/19 08:16 Dose: 10 ml Heparin Sodium (Porcine) (Heparin -) 5,000 unit SQ BID [facility] Last Admin: 01/09/19 09:53 Dose: 5,000 unit Hydrochlorothiazide (Hctz -) 25 mg PO DAILY [facility] Last Admin: 01/09/19 09:54 Dose: 25 mg Ceftriaxone Sodium 1 gm/ (Dextrose) 50 mls @ 100 mls/hr IVPB DAILY [facility] Last Admin: 01/09/19 09:53 Dose: 100 mls/hr Doxycycline Hyclate 100 mg/ (Dextrose) 100 mls @ 50 mls/hr IVPB BID [facility] Last Admin: 01/09/19 09:53 Dose: 50 mls/hr Levothyroxine Sodium (Synthroid -) 25 mcg PO DAILY@0700 [facility] Last Admin: 01/09/19 05:59 Dose: 25 mcg Lisinopril (Prinivil) 20 mg PO DAILY [facility] Last Admin: 01/09/19 09:54 Dose: 20 mg Methylprednisolone Sodium Succinate (Solu-Medrol -) 40 mg IVPUSH Q12H [facility] Last Admin: 01/09/19 09:53 Dose: 40 mg Non-Formulary Medication (Meloxicam [Mobic]) 15 mg PO DAILY [facility] Oxycodone HCl (Oxycontin -) 10 mg PO BID [facility] Last Admin: 01/09/19 09:54 Dose: 10 mg Pantoprazole Sodium (Protonix -) 20 mg PO DAILY [facility] Last Admin: 01/09/19 09:54 Dose: 20 mg Pregabalin (Lyrica -) 100 mg PO BID [facility] Last Admin: 01/09/19 09:54 Dose: 100 mg - Objective Vital Signs: Vital Signs Temperature 97.9 F 01/09/19 08:00 Pulse Rate 106 H 01/09/19 08:00 Respiratory Rate 20 01/09/19 08:00 Blood Pressure 106/55 L 01/09/19 08:00 O2 Sat by Pulse Oximetry (%) 95 01/08/19 20:10 Constitutional: Yes: Well Nourished, Calm, Obese Eyes: Yes: WNL HENT: Yes: WNL Neck: Yes: WNL Cardiovascular: Yes: Regular Rate and Rhythm, S1, S2 Respiratory: Yes: Rhonchi (scattered ney rhonchi) Gastrointestinal: Yes: Normal Bowel Sounds, Soft Extremities: Yes: WNL Edema: No Labs: CBC, BMP 01/09/19 05:20 Problem List - Problems (1) Asthma Code(s): J45.909 - UNSPECIFIED ASTHMA, UNCOMPLICATED (2) Pneumonia Code(s): J18.9 - PNEUMONIA, UNSPECIFIED ORGANISM Qualifiers: Pneumonia type: due to unspecified organism Laterality: unspecified laterality Lung location: unspecified part of lung Qualified Code(s): J18.9 - Pneumonia, unspecified organism (3) Polyneuropathy Code(s): G62.9 - POLYNEUROPATHY, UNSPECIFIED Assessment/Plan Problem List IMP ASTHMA EXACERBATION BILATERAL PNEUMONIA H/O GUILLAIN-BARRE SYNDROME POLYNEUROPATHY PLAN IV ABX PER ID INHALED BRONCHODILATORS MEDROL TAPER START PREDNISONE 60MG PO IN AM O2 COUGH MEDS PEAK FLOW CHEST X-RAY TODAY DR ABDUL Problem List - Problems (1) Asthma Code(s): J45.909 - UNSPECIFIED ASTHMA, UNCOMPLICATED (2) Pneumonia Code(s): J18.9 - PNEUMONIA, UNSPECIFIED ORGANISM Qualifiers: Pneumonia type: due to unspecified organism Laterality: unspecified laterality Lung location: unspecified part of lung Qualified Code(s): J18.9 - Pneumonia, unspecified organism (3) Polyneuropathy Code(s): G62.9 - POLYNEUROPATHY, UNSPECIFIED
[2019-01-09 13:17] LABS: IGM IMMUNOGLOBULIN 154
[2019-01-09] MEDS: guaiFENesin/CODEINE 10 ML UNIT-DOSE CUPS PO PRN (17:21)
[2019-01-09] MEDS: MICONAZOLE NITRATE 200 MG VAGINAL SUPPOSITORY PV SCH (22:36)
[2019-01-10] MEDS: LEVOTHYROXINE NA 25 MCG TABLET (FP) PO SCH (06:21)
[2019-01-10 07:19] LABS: HEMOGLOBIN 10.8 GM/dL (10.7-15.3); MCH 23.2 pg (25.7-33.7); MCHC 31.8 g/dl (32.0-36.0); MEAN CELL VOLUME 72.9 fl (80-96); MEAN PLT VOLUME 7.9 fl (7.5-11.1); PLATELET COUNT 473 K/MM3 (134-434); RBC 4.66 M/mm3 (3.60-5.2); RDW 17.7 % (11.6-15.6); WHITE BLOOD COUNT 11.3 K/mm3 (4.0-10.0)
[2019-01-10] MEDS: ALBUTEROL SO4 2.5/IPRATROPIUM 0.5 INH SOL 3 ML VIAL.NEB. NEB SCH ×4 (07:40→20:21)
[2019-01-10 07:52] LABS: ALBUMIN 2.9 g/dl (3.4-5.0); ALK PHOS 71 U/L (45-117); ANION GAP 6 MMOL/L (8-16); BILIRUBIN,TOTAL 0.4 mg/dL (0.2-1); BLOOD UREA NITROGEN 25 mg/dL (7-18); CALCIUM 8.8 mg/dL (8.5-10.1); CHLORIDE 91 mmol/L (98-107); CO2 34 mmol/L (21-32); CREATININE 0.7 mg/dL (0.55-1.3); GLUCOSE,RANDOM 150 mg/dL (74-106); POTASSIUM 5.1 mmol/L (3.5-5.1); SGOT/AST 8 U/L (15-37); SGPT/ALT 18 U/L (13-61); SODIUM 130 mmol/L (136-145)
[2019-01-10] MEDS ORDERED: cefTRIAXone SODIUM 1 GM VIAL ONE (09:27)
[2019-01-10] MEDS ORDERED: DEXTROSE 5%-WATER - 50 ML IVPB ONE (09:27)
[2019-01-10] MEDS: DOXYCYCLINE INJECTION 100 MG in DEXTROSE 5%-WATER - 100 ML IVPB SCH ×2 (09:28→21:32)
[2019-01-10] MEDS: CEFTRIAXONE 1 GM in DEXTROSE 5%-WATER - 50 ML IVPB SCH (09:28)
[2019-01-10] MEDS: PREGABALIN 50 MG CAPSULE PO SCH ×2 (09:29→21:31)
[2019-01-10] MEDS: oxyCODONE HCL 10 MG SUSTAINED ACTING TABLET PO SCH ×2 (09:29→21:31)
[2019-01-10] MEDS: HEPARIN NA (PORCINE) 5,000 UNITS/ML 1ML VIAL SQ SCH ×2 (09:30→21:30)
[2019-01-10] MEDS: DULoxetine HCL 30 MG CAPSULE.DR (FP) PO SCH ×2 (09:30→21:30)
[2019-01-10] MEDS: HYDROCHLOROTHIAZIDE 25 MG TABLET (FP) PO SCH (09:30)
[2019-01-10] MEDS: LISINOPRIL 20 MG TABLET (FP) PO SCH (09:30)
[2019-01-10] MEDS: predniSONE 20 MG TABLET (UD) PO SCH (09:30)
[2019-01-10] MEDS: PANTOPRAZOLE 20 MG TABLET (FP) PO SCH (09:30)
[2019-01-10] MEDS ORDERED: IRON SUCROSE INJECTION 200 MG in SODIUM CHLORIDE 90 ML IVPB ONE (11:00)
--- NOTE | 2019-01-10 11:57 | PN ---
Physical Exam: SUBJECTIVE: Patient seen and examined at bedside. Using incentive spirometer q1h. Feels better. OBJECTIVE: Vital Signs Period Temp Pulse Resp BP Sys/Delarosa Pulse Ox Last 24 Hr 97.1 F-98.7 F 62-91 18-20 129-155/80-98 94-95 GENERAL: The patient is awake, alert, and fully oriented, in no acute distress. EYES: extraocular movements intact, sclera anicteric, conjunctiva clear. ENT: Ears normal, nares patent LUNGS: b/l wheezing HEART: Regular rate and rhythm, S1, S2 ABDOMEN: Soft, nontender, normoactive bowel sounds EXTREMITIES: warm, well-perfused NEUROLOGICAL: Cranial nerves II through XII grossly intact. Normal speech, gait not observed. PSYCH: Normal mood, normal affect. SKIN: Warm, dry Laboratory Results - last 24 hr 01/05/19 01/05/19 01/10/19 06:00 06:00 06:00 WBC 11.3 H RBC 4.66 Hgb 10.8 Hct 34.0 MCV 72.9 L MCH 23.2 L MCHC 31.8 L RDW 17.7 H Plt Count 473 H MPV 7.9 Sodium Potassium Chloride Carbon Dioxide Anion Gap BUN Creatinine Creat Clearance w eGFR Random Glucose Calcium Total Bilirubin AST ALT Alkaline Phosphatase Total Protein Albumin Beta Globulins 1.7 H IgM 154 OVIDIO & SPEP Interp Total Protein (OVIDIO) 7.6 Albumin (OVIDIO) 3.2 Albumin/Globulin (OVIDIO) 0.8 Wmxrh-9-Ykncvjuem OVIDIO 0.3 Jmewu-8-Dlygnzwal OVIDIO 1.0 Gamma Globulins (OVIDIO) 1.5 OVIDIO M-Porter Not observed OVIDIO Comments IEP IgG 1368 IEP IgA 643 H IEP IgM 150 01/10/19 06:00 WBC RBC Hgb Hct MCV MCH MCHC RDW Plt Count MPV Sodium 130 L Potassium 5.1 Chloride 91 L Carbon Dioxide 34 H Anion Gap 6 L BUN 25 H Creatinine 0.7 Creat Clearance w eGFR 88.94 Random Glucose 150 H Calcium 8.8 Total Bilirubin 0.4 AST 8 L ALT 18 Alkaline Phosphatase 71 Total Protein 7.0 Albumin 2.9 L Beta Globulins IgM OVIDIO & SPEP Interp Total Protein (OVIDIO) Albumin (OVIDIO) Albumin/Globulin (OVIDIO) Glrwl-7-Smepqnqrh OVIDIO Tckgw-4-Zfaethsee OVIDIO Gamma Globulins (OVIDIO) OVIDIO M-Porter OVIDIO Comments IEP IgG IEP IgA IEP IgM Active Medications Generic Name Dose Route Start Last Admin Trade Name Freq PRN Reason Stop Dose Admin Albuterol Sulfate 1 amp 01/03/19 10:45 Ventolin 0.083% Nebulizer Soln - NEB Q4H PRN SHORT OF BREATH/WHEEZING Albuterol/Ipratropium 1 amp 01/03/19 12:00 01/10/19 11:10 Duoneb - NEB 1 amp RQID [facility] Administration Clonazepam 0.5 mg 01/04/19 20:07 01/09/19 01:50 Klonopin - PO 0.5 mg HS PRN Administration ANXIETY Duloxetine HCl 30 mg 01/04/19 22:00 01/10/19 09:30 Cymbalta - PO 30 mg BID [facility] Administration Guaifenesin/Codeine Phosphate 10 ml 01/02/19 15:02 01/09/19 17:21 Robitussin Ac - PO 10 ml Q8H PRN Administration COUGH Heparin Sodium (Porcine) 5,000 unit 01/02/19 22:00 01/10/19 09:30 Heparin - SQ 5,000 unit BID [facility] Administration Hydrochlorothiazide 25 mg 01/02/19 10:00 01/10/19 09:30 Hctz - PO 25 mg DAILY [facility] Administration Ceftriaxone Sodium 1 gm/ 50 mls @ 100 mls/hr 01/02/19 10:00 01/10/19 09:28 Dextrose IVPB 100 mls/hr DAILY [facility] Administration Doxycycline Hyclate 100 mg/ 100 mls @ 50 mls/hr 01/02/19 10:00 01/10/19 09:28 Dextrose IVPB 50 mls/hr BID [facility] Administration Iron Sucrose 200 mg/ Sodium 100 mls @ 100 mls/hr 01/10/19 11:00 Chloride IVPB 01/10/19 11:59 ONCE ONE Levothyroxine Sodium 25 mcg 01/05/19 07:00 01/10/19 06:21 Synthroid - PO 25 mcg DAILY@0700 [facility] Administration Lisinopril 20 mg 01/02/19 10:00 01/10/19 09:30 Prinivil PO 20 mg DAILY [facility] Administration Miconazole Nitrate 200 mg 01/09/19 22:00 01/09/19 22:36 Miconazole 3 PV 01/11/19 22:01 200 mg HS [facility] Administration Oxycodone HCl 10 mg 01/05/19 22:00 01/10/19 09:29 Oxycontin - PO 10 mg BID [facility] Administration Pantoprazole Sodium 20 mg 01/02/19 10:00 01/10/19 09:30 Protonix - PO 20 mg DAILY [facility] Administration Prednisone 60 mg 01/10/19 10:00 01/10/19 09:30 Deltasone - PO 60 mg DAILY [facility] Administration Pregabalin 100 mg 01/01/19 23:30 01/10/19 09:29 Lyrica - PO 100 mg BID [facility] Administration ASSESSMENT/PLAN: 48 y/o F w/PMH of asthma here for asthma found to have pna. Heme consulted for leukopenia. Iron deficiency anemia Hx of bariatric surgery Hyponatremia -IV iron today. -c/w incentive spirometer -Leukopenia now resolved -Monitor electrolytes Visit type - Emergency Visit Emergency Visit: Yes ED Registration Date: 01/01/19 Care time: The patient presented to the Emergency Department on the above date and was hospitalized for further evaluation of their emergent condition. - New Patient This patient is new to me today: No - Critical Care Critical Care patient: No
--- NOTE | 2019-01-10 14:17 | PN ---
Progress Note, Physician History of Present Illness: pulmonary alert,oob-chair,-cough ,-sob - Current Medication List Current Medications: Active Medications Albuterol Sulfate (Ventolin 0.083% Nebulizer Soln -) 1 amp NEB Q4H PRN PRN Reason: SHORT OF BREATH/WHEEZING Albuterol/Ipratropium (Duoneb -) 1 amp NEB RQID [facility] Last Admin: 01/10/19 11:10 Dose: 1 amp Clonazepam (Klonopin -) 0.5 mg PO HS PRN PRN Reason: ANXIETY Last Admin: 01/09/19 01:50 Dose: 0.5 mg Duloxetine HCl (Cymbalta -) 30 mg PO BID [facility] Last Admin: 01/10/19 09:30 Dose: 30 mg Guaifenesin/Codeine Phosphate (Robitussin Ac -) 10 ml PO Q8H PRN PRN Reason: COUGH Last Admin: 01/09/19 17:21 Dose: 10 ml Heparin Sodium (Porcine) (Heparin -) 5,000 unit SQ BID [facility] Last Admin: 01/10/19 09:30 Dose: 5,000 unit Hydrochlorothiazide (Hctz -) 25 mg PO DAILY [facility] Last Admin: 01/10/19 09:30 Dose: 25 mg Ceftriaxone Sodium 1 gm/ (Dextrose) 50 mls @ 100 mls/hr IVPB DAILY [facility] Last Admin: 01/10/19 09:28 Dose: 100 mls/hr Doxycycline Hyclate 100 mg/ (Dextrose) 100 mls @ 50 mls/hr IVPB BID [facility] Last Admin: 01/10/19 09:28 Dose: 50 mls/hr Levothyroxine Sodium (Synthroid -) 25 mcg PO DAILY@0700 [facility] Last Admin: 01/10/19 06:21 Dose: 25 mcg Lisinopril (Prinivil) 20 mg PO DAILY [facility] Last Admin: 01/10/19 09:30 Dose: 20 mg Miconazole Nitrate (Miconazole 3) 200 mg PV HS [facility] Stop: 01/11/19 22:01 Last Admin: 01/09/19 22:36 Dose: 200 mg Oxycodone HCl (Oxycontin -) 10 mg PO BID [facility] Last Admin: 01/10/19 09:29 Dose: 10 mg Pantoprazole Sodium (Protonix -) 20 mg PO DAILY [facility] Last Admin: 01/10/19 09:30 Dose: 20 mg Prednisone (Deltasone -) 60 mg PO DAILY [facility] Last Admin: 01/10/19 09:30 Dose: 60 mg Pregabalin (Lyrica -) 100 mg PO BID [facility] Last Admin: 01/10/19 09:29 Dose: 100 mg - Objective Vital Signs: Vital Signs Temperature 98.6 F 01/10/19 10:00 Pulse Rate 91 H 01/10/19 10:00 Respiratory Rate 18 01/10/19 10:00 Blood Pressure 137/90 01/10/19 10:00 O2 Sat by Pulse Oximetry (%) 94 L 01/10/19 09:00 Constitutional: Yes: Obese Eyes: Yes: WNL HENT: Yes: WNL Neck: Yes: WNL Cardiovascular: Yes: Regular Rate and Rhythm, S1, S2 Respiratory: Yes: CTA Bilaterally Gastrointestinal: Yes: Normal Bowel Sounds, Soft Extremities: Yes: WNL Edema: No Labs: CBC, BMP 01/10/19 06:00 01/10/19 06:00 - ....Imaging Chest X-ray: Report Reviewed, Image Reviewed (improved left base infiltrate) Problem List - Problems (1) Asthma Code(s): J45.909 - UNSPECIFIED ASTHMA, UNCOMPLICATED (2) Pneumonia Code(s): J18.9 - PNEUMONIA, UNSPECIFIED ORGANISM Qualifiers: Pneumonia type: due to unspecified organism Laterality: unspecified laterality Lung location: unspecified part of lung Qualified Code(s): J18.9 - Pneumonia, unspecified organism (3) Polyneuropathy Code(s): G62.9 - POLYNEUROPATHY, UNSPECIFIED Assessment/Plan Problem List IMP ASTHMA EXACERBATION BILATERAL PNEUMONIA H/O GUILLAIN-BARRE SYNDROME POLYNEUROPATHY PLAN CONSIDER PO ABX INHALED BRONCHODILATORS PREDNISONE 60MG O2 COUGH MEDS PEAK FLOW DR ABDUL Problem List - Problems (1) Asthma Code(s): J45.909 - UNSPECIFIED ASTHMA, UNCOMPLICATED (2) Pneumonia Code(s): J18.9 - PNEUMONIA, UNSPECIFIED ORGANISM Qualifiers: Pneumonia type: due to unspecified organism Laterality: unspecified laterality Lung location: unspecified part of lung Qualified Code(s): J18.9 - Pneumonia, unspecified organism (3) Polyneuropathy Code(s): G62.9 - POLYNEUROPATHY, UNSPECIFIED
--- NOTE | 2019-01-10 16:50 | PN ---
Progress Note, Physician History of Present Illness: Pt breathing is better comparing with admission, still c/o LOMAX. Pt w/o CP, palp, abd pain. - Current Medication List Current Medications: Active Medications Albuterol Sulfate (Ventolin 0.083% Nebulizer Soln -) 1 amp NEB Q4H PRN PRN Reason: SHORT OF BREATH/WHEEZING Albuterol/Ipratropium (Duoneb -) 1 amp NEB RQID [facility] Last Admin: 01/10/19 15:46 Dose: 1 amp Clonazepam (Klonopin -) 0.5 mg PO HS PRN PRN Reason: ANXIETY Last Admin: 01/09/19 01:50 Dose: 0.5 mg Duloxetine HCl (Cymbalta -) 30 mg PO BID [facility] Last Admin: 01/10/19 09:30 Dose: 30 mg Guaifenesin/Codeine Phosphate (Robitussin Ac -) 10 ml PO Q8H PRN PRN Reason: COUGH Last Admin: 01/09/19 17:21 Dose: 10 ml Heparin Sodium (Porcine) (Heparin -) 5,000 unit SQ BID [facility] Last Admin: 01/10/19 09:30 Dose: 5,000 unit Hydrochlorothiazide (Hctz -) 25 mg PO DAILY [facility] Last Admin: 01/10/19 09:30 Dose: 25 mg Ceftriaxone Sodium 1 gm/ (Dextrose) 50 mls @ 100 mls/hr IVPB DAILY [facility] Last Admin: 01/10/19 09:28 Dose: 100 mls/hr Doxycycline Hyclate 100 mg/ (Dextrose) 100 mls @ 50 mls/hr IVPB BID [facility] Last Admin: 01/10/19 09:28 Dose: 50 mls/hr Levothyroxine Sodium (Synthroid -) 25 mcg PO DAILY@0700 [facility] Last Admin: 01/10/19 06:21 Dose: 25 mcg Lisinopril (Prinivil) 20 mg PO DAILY [facility] Last Admin: 01/10/19 09:30 Dose: 20 mg Miconazole Nitrate (Miconazole 3) 200 mg PV HS [facility] Stop: 01/11/19 22:01 Last Admin: 01/09/19 22:36 Dose: 200 mg Oxycodone HCl (Oxycontin -) 10 mg PO BID [facility] Last Admin: 01/10/19 09:29 Dose: 10 mg Pantoprazole Sodium (Protonix -) 20 mg PO DAILY [facility] Last Admin: 01/10/19 09:30 Dose: 20 mg Prednisone (Deltasone -) 60 mg PO DAILY [facility] Last Admin: 01/10/19 09:30 Dose: 60 mg Pregabalin (Lyrica -) 100 mg PO BID [facility] Last Admin: 01/10/19 09:29 Dose: 100 mg - Objective Vital Signs: Vital Signs Temperature 98.6 F 01/10/19 10:00 Pulse Rate 91 H 01/10/19 10:00 Respiratory Rate 18 01/10/19 10:00 Blood Pressure 137/90 01/10/19 10:00 O2 Sat by Pulse Oximetry (%) 94 L 01/10/19 09:00 Constitutional: Yes: No Distress, Calm Cardiovascular: Yes: Regular Rate and Rhythm, S1, S2 Respiratory: Yes: Regular, CTA Bilaterally, Other (coarse BS at bases) Gastrointestinal: Yes: Normal Bowel Sounds, Soft. No: Tenderness Neurological: Yes: Alert, Oriented Labs: CBC, BMP 01/10/19 06:00 01/10/19 06:00 Problem List - Problems (1) Pneumonia Code(s): J18.9 - PNEUMONIA, UNSPECIFIED ORGANISM Qualifiers: Pneumonia type: due to unspecified organism Laterality: unspecified laterality Lung location: unspecified part of lung Qualified Code(s): J18.9 - Pneumonia, unspecified organism (2) Asthma Code(s): J45.909 - UNSPECIFIED ASTHMA, UNCOMPLICATED (3) Cholelithiasis Code(s): K80.20 - CALCULUS OF GALLBLADDER W/O CHOLECYSTITIS W/O OBSTRUCTION (4) Anemia Code(s): D64.9 - ANEMIA, UNSPECIFIED (5) Hyponatremia Assessment/Plan: trending down Code(s): E87.1 - HYPO-OSMOLALITY AND HYPONATREMIA Assessment/Plan IV abtx PO steroids -to be tapered per Pulmonary. Pre and post O2 sat was noticed; pt needs O2 supplementation Pulmonary, Heme consults are appreciated. Renal consult for hyponatremia (likely multi-factorial) AM labs
--- NOTE | 2019-01-10 17:49 | CONSULT ---
Consult - text type - Consultation Consultation Note: Renal consult for hyponatremia This is a 48 year old woman with hx of asthma, polymyalgia who presented with cough and found to have PNA and developed hyponatremia during the admission. No hx of of hyponatremia in the past. Pt was on Lisonpirl/HCTZ at home. Pt feels overall better but has been having poor solute intake while in the hospital. No CP, fever, chills, N/V/D, confusion, lethargy or seizure. No leg swelling. Has dry mouth. PMhx: as above Allergies: NKDA Family Hx: NC Social Hx: no T/A/D ROS: as per HPI Home Medications Medication Instructions Recorded Pregabalin [Lyrica -] 100 mg PO BID 12/10/14 Meloxicam [Mobic] 15 mg PO DAILY 06/24/16 Omeprazole 20 mg PO DAILY 06/24/16 Lisinopril/Hydrochlorothiazide 1 each PO DAILY 04/21/17 [Lisinopril-Hctz 20-25 mg Tab] Albuterol 0.083% Nebulizer Ayala 1 neb NEB Q4H #90 vial 10/23/18 [Ventolin 0.083% Nebulizer Soln -] Tramadol HCl 50 mg PO TID PRN #10 tablet MDD 3 11/20/18 Duloxetine HCl [Cymbalta -] 30 mg PO BID 01/03/19 Levothyroxine [Synthroid -] 25 mcg PO DAILY 01/03/19 Oxycodone HCl [Oxycodone HCl ER] 15 tablet PO BID 01/03/19 Klonopin - 0.5 mg PO HS 01/04/19 Vital Signs Temperature 98.6 F 01/10/19 10:00 Pulse Rate 91 H 01/10/19 10:00 Respiratory Rate 18 01/10/19 10:00 Blood Pressure 137/90 01/10/19 10:00 O2 Sat by Pulse Oximetry (%) 94 L 01/10/19 09:00 Intake & Output 01/07/19 01/08/19 01/09/19 01/10/19 23:59 23:59 23:59 23:59 Intake Total 850 1350 1250 950 Balance 850 1350 1250 950 NAD awake and alert neck supple, no JVD RRR, no M/R CTA, no rales or wheeze soft obese, NT/ND No LE edema, clubbing or cyanosis CBC, BMP 01/10/19 06:00 01/10/19 06:00 Current Medications Albuterol Sulfate (Ventolin 0.083% Nebulizer Soln -) 1 amp NEB Q4H PRN PRN Reason: SHORT OF BREATH/WHEEZING Albuterol/Ipratropium (Duoneb -) 1 amp NEB RQID [facility] Last Admin: 01/10/19 15:46 Dose: 1 amp Clonazepam (Klonopin -) 0.5 mg PO HS PRN PRN Reason: ANXIETY Last Admin: 01/09/19 01:50 Dose: 0.5 mg Duloxetine HCl (Cymbalta -) 30 mg PO BID [facility] Last Admin: 01/10/19 09:30 Dose: 30 mg Guaifenesin/Codeine Phosphate (Robitussin Ac -) 10 ml PO Q8H PRN PRN Reason: COUGH Last Admin: 01/09/19 17:21 Dose: 10 ml Heparin Sodium (Porcine) (Heparin -) 5,000 unit SQ BID [facility] Last Admin: 01/10/19 09:30 Dose: 5,000 unit Ceftriaxone Sodium 1 gm/ (Dextrose) 50 mls @ 100 mls/hr IVPB DAILY [facility] Last Admin: 01/10/19 09:28 Dose: 100 mls/hr Doxycycline Hyclate 100 mg/ (Dextrose) 100 mls @ 50 mls/hr IVPB BID [facility] Last Admin: 01/10/19 09:28 Dose: 50 mls/hr Levothyroxine Sodium (Synthroid -) 25 mcg PO DAILY@0700 [facility] Last Admin: 01/10/19 06:21 Dose: 25 mcg Lisinopril (Prinivil) 20 mg PO DAILY [facility] Last Admin: 01/10/19 09:30 Dose: 20 mg Miconazole Nitrate (Miconazole 3) 200 mg PV HS [facility] Stop: 01/11/19 22:01 Last Admin: 01/09/19 22:36 Dose: 200 mg Oxycodone HCl (Oxycontin -) 10 mg PO BID [facility] Last Admin: 01/10/19 09:29 Dose: 10 mg Pantoprazole Sodium (Protonix -) 20 mg PO DAILY [facility] Last Admin: 01/10/19 09:30 Dose: 20 mg Prednisone (Deltasone -) 60 mg PO DAILY [facility] Last Admin: 01/10/19 09:30 Dose: 60 mg Pregabalin (Lyrica -) 100 mg PO BID [facility] Last Admin: 01/10/19 09:29 Dose: 100 mg 48 year old woman with hx of asthma, polymyalgia who presented with cough and found to have PNA and developed hyponatremia during the admission. #Acute Hyponatremia likely due to hypovolemic hyponatremia in setting of HCTZ and poor solute intake #PNA #Asthma #Hypertension #Polymyalgia Check urine studies for Urine OSM, Urine Na Check serum OSM discontinue HCTZ Trial fo IVF NS at 100cc per hour x 6 hours and then repat Na if improved so stable can be discharged with outpatient follow up no indication for 3% saline Thank you Kip Gonzalez DO
[2019-01-10] MEDS ORDERED: SODIUM CHLORIDE 1,000 ML IV SCH (18:00)
[2019-01-10] MEDS ORDERED: PT OWN MED DRAWER 7, Y5N ONE (20:54)
[2019-01-10] MEDS: MICONAZOLE NITRATE 200 MG VAGINAL SUPPOSITORY PV SCH (21:31)
[2019-01-11] MEDS: guaiFENesin/CODEINE 10 ML UNIT-DOSE CUPS PO PRN (01:52)
[2019-01-11] MEDS: LEVOTHYROXINE NA 25 MCG TABLET (FP) PO SCH (06:16)
[2019-01-11 06:54] LABS: BASO % 0.6 % (0-2.0); EOS % 0.1 % (0-4.5); HEMATOCRIT 34.9 % (32.4-45.2); HEMOGLOBIN 11.2 GM/dL (10.7-15.3); LYMPH % 25.4 % (8-40); MCH 23.4 pg (25.7-33.7); MCHC 32.1 g/dl (32.0-36.0); MEAN CELL VOLUME 72.9 fl (80-96); MEAN PLT VOLUME 7.8 fl (7.5-11.1); MONO % 9.4 % (3.8-10.2); NEUT % 64.5 % (42.8-82.8); PLATELET COUNT 481 K/MM3 (134-434); RBC 4.79 M/mm3 (3.60-5.2); RDW 17.3 % (11.6-15.6); WHITE BLOOD COUNT 14.7 K/mm3 (4.0-10.0)
[2019-01-11 07:13] LABS: ALK PHOS 84 U/L (45-117); ANION GAP 8 MMOL/L (8-16); BILIRUBIN,TOTAL 0.4 mg/dL (0.2-1); BLOOD UREA NITROGEN 28 mg/dL (7-18); CALCIUM 8.5 mg/dL (8.5-10.1); CHLORIDE 92 mmol/L (98-107); CO2 32 mmol/L (21-32); CREATININE 0.8 mg/dL (0.55-1.3); GLUCOSE,RANDOM 98 mg/dL (74-106); POTASSIUM 4.6 mmol/L (3.5-5.1); SGOT/AST 14 U/L (15-37); SGPT/ALT 20 U/L (13-61); SODIUM 131 mmol/L (136-145); TOT PROT 6.9 g/dl (6.4-8.2)
[2019-01-11] MEDS: ALBUTEROL SO4 2.5/IPRATROPIUM 0.5 INH SOL 3 ML VIAL.NEB. NEB SCH ×3 (08:22→15:40)
[2019-01-11] MEDS ORDERED: DEXTROSE 5%-WATER - 50 ML IVPB ONE (09:54)
[2019-01-11] MEDS ORDERED: cefTRIAXone SODIUM 1 GM VIAL ONE (09:54)
[2019-01-11] MEDS: DOXYCYCLINE INJECTION 100 MG in DEXTROSE 5%-WATER - 100 ML IVPB SCH (09:55)
[2019-01-11] MEDS: LISINOPRIL 20 MG TABLET (FP) PO SCH (09:56)
[2019-01-11] MEDS: predniSONE 20 MG TABLET (UD) PO SCH (09:56)
[2019-01-11] MEDS: HEPARIN NA (PORCINE) 5,000 UNITS/ML 1ML VIAL SQ SCH (09:56)
[2019-01-11] MEDS: PANTOPRAZOLE 20 MG TABLET (FP) PO SCH (09:56)
[2019-01-11] MEDS: DULoxetine HCL 30 MG CAPSULE.DR (FP) PO SCH (09:56)
[2019-01-11] MEDS: CEFTRIAXONE 1 GM in DEXTROSE 5%-WATER - 50 ML IVPB SCH (09:56)
[2019-01-11] MEDS: PREGABALIN 50 MG CAPSULE PO SCH (09:56)
[2019-01-11] MEDS: oxyCODONE HCL 10 MG SUSTAINED ACTING TABLET PO SCH (09:56)
--- NOTE | 2019-01-11 10:56 | PN ---
Progress Note, Physician History of Present Illness: Pt breathing is better. Pt w/o CP, palp, abd pain. - Current Medication List Current Medications: Active Medications Albuterol Sulfate (Ventolin 0.083% Nebulizer Soln -) 1 amp NEB Q4H PRN PRN Reason: SHORT OF BREATH/WHEEZING Albuterol/Ipratropium (Duoneb -) 1 amp NEB RQID [facility] Last Admin: 01/11/19 08:22 Dose: 1 amp Clonazepam (Klonopin -) 0.5 mg PO HS PRN PRN Reason: ANXIETY Last Admin: 01/09/19 01:50 Dose: 0.5 mg Duloxetine HCl (Cymbalta -) 30 mg PO BID [facility] Last Admin: 01/11/19 09:56 Dose: 30 mg Guaifenesin/Codeine Phosphate (Robitussin Ac -) 10 ml PO Q8H PRN PRN Reason: COUGH Last Admin: 01/11/19 01:52 Dose: 10 ml Heparin Sodium (Porcine) (Heparin -) 5,000 unit SQ BID [facility] Last Admin: 01/11/19 09:56 Dose: 5,000 unit Ceftriaxone Sodium 1 gm/ (Dextrose) 50 mls @ 100 mls/hr IVPB DAILY [facility] Last Admin: 01/11/19 09:56 Dose: 100 mls/hr Doxycycline Hyclate 100 mg/ (Dextrose) 100 mls @ 50 mls/hr IVPB BID [facility] Last Admin: 01/11/19 09:55 Dose: 50 mls/hr Levothyroxine Sodium (Synthroid -) 25 mcg PO DAILY@0700 [facility] Last Admin: 01/11/19 06:16 Dose: 25 mcg Lisinopril (Prinivil) 20 mg PO DAILY [facility] Last Admin: 01/11/19 09:56 Dose: 20 mg Miconazole Nitrate (Miconazole 3) 200 mg PV HS [facility] Stop: 01/11/19 22:01 Last Admin: 01/10/19 21:31 Dose: 200 mg Oxycodone HCl (Oxycontin -) 10 mg PO BID [facility] Last Admin: 01/11/19 09:56 Dose: 10 mg Pantoprazole Sodium (Protonix -) 20 mg PO DAILY [facility] Last Admin: 01/11/19 09:56 Dose: 20 mg Prednisone (Deltasone -) 60 mg PO DAILY [facility] Last Admin: 01/11/19 09:56 Dose: 60 mg Pregabalin (Lyrica -) 100 mg PO BID [facility] Last Admin: 01/11/19 09:56 Dose: 100 mg - Objective Vital Signs: Vital Signs Temperature 98.0 F 01/11/19 10:00 Pulse Rate 94 H 01/11/19 10:00 Respiratory Rate 20 01/11/19 10:00 Blood Pressure 135/72 01/11/19 10:00 O2 Sat by Pulse Oximetry (%) 94 L 01/11/19 09:00 Constitutional: Yes: No Distress, Calm Cardiovascular: Yes: Regular Rate and Rhythm, S1, S2 Respiratory: Yes: Regular, Other (coarse BS bilat.) Gastrointestinal: Yes: Normal Bowel Sounds, Soft. No: Tenderness Edema: No Labs: CBC, BMP 01/11/19 05:45 01/11/19 05:45 Problem List - Problems (1) Pneumonia Code(s): J18.9 - PNEUMONIA, UNSPECIFIED ORGANISM Qualifiers: Pneumonia type: due to unspecified organism Laterality: unspecified laterality Lung location: unspecified part of lung Qualified Code(s): J18.9 - Pneumonia, unspecified organism (2) Asthma Code(s): J45.909 - UNSPECIFIED ASTHMA, UNCOMPLICATED (3) Cholelithiasis Code(s): K80.20 - CALCULUS OF GALLBLADDER W/O CHOLECYSTITIS W/O OBSTRUCTION (4) Anemia Code(s): D64.9 - ANEMIA, UNSPECIFIED (5) Hyponatremia Code(s): E87.1 - HYPO-OSMOLALITY AND HYPONATREMIA Assessment/Plan IV abtx PO steroids -to be tapered per Pulmonary. Pre and post O2 sat to be retested today Pulmonary, Heme, Renal consults are appreciated. To f/u with Renal regarging hyponatremia. DC planning AM labs
[2019-01-11 11:05] LABS: ANISOCYTOSIS 0; MACROCYTOSIS 0; PLATELET ESTIMATE NORMAL
--- NOTE | 2019-01-11 13:32 | PN ---
Progress Note, Physician History of Present Illness: pulmonary alert,no distress,-cp,-sob - Current Medication List Current Medications: Active Medications Albuterol Sulfate (Ventolin 0.083% Nebulizer Soln -) 1 amp NEB Q4H PRN PRN Reason: SHORT OF BREATH/WHEEZING Albuterol/Ipratropium (Duoneb -) 1 amp NEB RQID [facility] Last Admin: 01/11/19 11:49 Dose: 1 amp Clonazepam (Klonopin -) 0.5 mg PO HS PRN PRN Reason: ANXIETY Last Admin: 01/09/19 01:50 Dose: 0.5 mg Duloxetine HCl (Cymbalta -) 30 mg PO BID [facility] Last Admin: 01/11/19 09:56 Dose: 30 mg Guaifenesin/Codeine Phosphate (Robitussin Ac -) 10 ml PO Q8H PRN PRN Reason: COUGH Last Admin: 01/11/19 01:52 Dose: 10 ml Heparin Sodium (Porcine) (Heparin -) 5,000 unit SQ BID [facility] Last Admin: 01/11/19 09:56 Dose: 5,000 unit Ceftriaxone Sodium 1 gm/ (Dextrose) 50 mls @ 100 mls/hr IVPB DAILY [facility] Last Admin: 01/11/19 09:56 Dose: 100 mls/hr Doxycycline Hyclate 100 mg/ (Dextrose) 100 mls @ 50 mls/hr IVPB BID [facility] Last Admin: 01/11/19 09:55 Dose: 50 mls/hr Levothyroxine Sodium (Synthroid -) 25 mcg PO DAILY@0700 [facility] Last Admin: 01/11/19 06:16 Dose: 25 mcg Lisinopril (Prinivil) 20 mg PO DAILY [facility] Last Admin: 01/11/19 09:56 Dose: 20 mg Miconazole Nitrate (Miconazole 3) 200 mg PV HS [facility] Stop: 01/11/19 22:01 Last Admin: 01/10/19 21:31 Dose: 200 mg Oxycodone HCl (Oxycontin -) 10 mg PO BID [facility] Last Admin: 01/11/19 09:56 Dose: 10 mg Pantoprazole Sodium (Protonix -) 20 mg PO DAILY [facility] Last Admin: 01/11/19 09:56 Dose: 20 mg Prednisone (Deltasone -) 60 mg PO DAILY [facility] Last Admin: 01/11/19 09:56 Dose: 60 mg Pregabalin (Lyrica -) 100 mg PO BID [facility] Last Admin: 01/11/19 09:56 Dose: 100 mg - Objective Vital Signs: Vital Signs Temperature 98.0 F 01/11/19 10:00 Pulse Rate 94 H 01/11/19 10:00 Respiratory Rate 20 01/11/19 10:00 Blood Pressure 135/72 01/11/19 10:00 O2 Sat by Pulse Oximetry (%) 94 L 01/11/19 09:00 Constitutional: Yes: Calm, Obese Eyes: Yes: WNL HENT: Yes: WNL Neck: Yes: WNL Cardiovascular: Yes: Regular Rate and Rhythm, S1, S2 Respiratory: Yes: CTA Bilaterally Gastrointestinal: Yes: Normal Bowel Sounds, Soft Extremities: Yes: WNL Edema: No Labs: CBC, BMP 01/11/19 05:45 01/11/19 05:45 Problem List - Problems (1) Asthma Code(s): J45.909 - UNSPECIFIED ASTHMA, UNCOMPLICATED (2) Pneumonia Code(s): J18.9 - PNEUMONIA, UNSPECIFIED ORGANISM Qualifiers: Pneumonia type: due to unspecified organism Laterality: unspecified laterality Lung location: unspecified part of lung Qualified Code(s): J18.9 - Pneumonia, unspecified organism (3) Polyneuropathy Code(s): G62.9 - POLYNEUROPATHY, UNSPECIFIED Assessment/Plan Problem List IMP ASTHMA EXACERBATION improved BILATERAL PNEUMONIA improved H/O GUILLAIN-BARRE SYNDROME POLYNEUROPATHY PLAN PO ABX INHALED BRONCHODILATORS PREDNISONE 60MG O2 COUGH MEDS OUTPATIENT PFTS AMBULATORY O2 SAT ON RA DR ABDUL Problem List - Problems (1) Asthma Code(s): J45.909 - UNSPECIFIED ASTHMA, UNCOMPLICATED (2) Pneumonia Code(s): J18.9 - PNEUMONIA, UNSPECIFIED ORGANISM Qualifiers: Pneumonia type: due to unspecified organism Laterality: unspecified laterality Lung location: unspecified part of lung Qualified Code(s): J18.9 - Pneumonia, unspecified organism (3) Polyneuropathy Code(s): G62.9 - POLYNEUROPATHY, UNSPECIFIED
--- NOTE | 2019-01-11 14:55 | PN ---
Progress Note (short form) - Note Progress Note: Renal follow up for hyponatremia Pt seen and examined at the bedside awake and alert no acute complaints no sob, cp, abd pain tolerating oral diet Vital Signs Temperature 98.0 F 01/11/19 10:00 Pulse Rate 121 H 01/11/19 14:04 Respiratory Rate 20 01/11/19 10:00 Blood Pressure 135/72 01/11/19 10:00 O2 Sat by Pulse Oximetry (%) 96 01/11/19 14:04 Intake & Output 01/08/19 01/09/19 01/10/19 01/11/19 23:59 23:59 23:59 23:59 Intake Total 1350 1250 1550 450 Balance 1350 1250 1550 450 NAD awake and alert neck supple, no JVD RRR, no M/R CTA, no rales or wheeze soft obese, NT/ND No LE edema, clubbing or cyanosis CBC, BMP 01/11/19 05:45 01/11/19 05:45 Current Medications Albuterol Sulfate (Ventolin 0.083% Nebulizer Soln -) 1 amp NEB Q4H PRN PRN Reason: SHORT OF BREATH/WHEEZING Albuterol/Ipratropium (Duoneb -) 1 amp NEB RQID [facility] Last Admin: 01/11/19 11:49 Dose: 1 amp Clonazepam (Klonopin -) 0.5 mg PO HS PRN PRN Reason: ANXIETY Last Admin: 01/09/19 01:50 Dose: 0.5 mg Duloxetine HCl (Cymbalta -) 30 mg PO BID [facility] Last Admin: 01/11/19 09:56 Dose: 30 mg Guaifenesin/Codeine Phosphate (Robitussin Ac -) 10 ml PO Q8H PRN PRN Reason: COUGH Last Admin: 01/11/19 01:52 Dose: 10 ml Heparin Sodium (Porcine) (Heparin -) 5,000 unit SQ BID [facility] Last Admin: 01/11/19 09:56 Dose: 5,000 unit Ceftriaxone Sodium 1 gm/ (Dextrose) 50 mls @ 100 mls/hr IVPB DAILY [facility] Last Admin: 01/11/19 09:56 Dose: 100 mls/hr Doxycycline Hyclate 100 mg/ (Dextrose) 100 mls @ 50 mls/hr IVPB BID [facility] Last Admin: 01/11/19 09:55 Dose: 50 mls/hr Levothyroxine Sodium (Synthroid -) 25 mcg PO DAILY@0700 [facility] Last Admin: 01/11/19 06:16 Dose: 25 mcg Lisinopril (Prinivil) 20 mg PO DAILY [facility] Last Admin: 01/11/19 09:56 Dose: 20 mg Miconazole Nitrate (Miconazole 3) 200 mg PV HS [facility] Stop: 01/11/19 22:01 Last Admin: 01/10/19 21:31 Dose: 200 mg Oxycodone HCl (Oxycontin -) 10 mg PO BID [facility] Last Admin: 01/11/19 09:56 Dose: 10 mg Pantoprazole Sodium (Protonix -) 20 mg PO DAILY [facility] Last Admin: 01/11/19 09:56 Dose: 20 mg Prednisone (Deltasone -) 60 mg PO DAILY [facility] Last Admin: 01/11/19 09:56 Dose: 60 mg Pregabalin (Lyrica -) 100 mg PO BID [facility] Last Admin: 01/11/19 09:56 Dose: 100 mg 48 year old woman with hx of asthma, polymyalgia who presented with cough and found to have PNA and developed hyponatremia during the admission. #Acute Hyponatremia likely due to hypovolemic hyponatremia in setting of HCTZ #PNA #Asthma #Hypertension #Polymyalgia Serum Na stable High urine OSM consistent with ADH release pt stable for discharge with outpatient monitoring she should not resume her HCTZ at home may require new Rx for Lisinopril w/o HCTZ component mild fluid restriction of 1.5L daily discharge planning as per primary can follow up in the office to monitor Na levels Keri Gonzalez DO
[2019-01-11 15:31] VITALS: BP 121/71; PULSE 102; TEMP 98.5
--- NOTE | 2019-01-11 17:44 | DS ---
Physical Examination Vital Signs: Vital Signs Temperature 98.5 F 01/11/19 15:30 Pulse Rate 102 H 01/11/19 15:30 Respiratory Rate 20 01/11/19 10:00 Blood Pressure 121/71 01/11/19 15:30 O2 Sat by Pulse Oximetry (%) 96 01/11/19 14:04 Findings/Remarks: see today Progress Note for HPI, ROS, PE Labs: CBC, BMP 01/11/19 05:45 01/11/19 05:45 Discharge Summary Reason For Visit: SEPSIS,PNEMONIA Current Active Problems Abnormal thyroid blood test (Acute) Anemia (Acute) Anemia (Acute) Asthma (Acute) History of Guillain-[place] syndrome (Acute) Hyponatremia (Acute) Leukopenia (Acute) Pneumonia (Acute) Polyneuropathy (Acute) Respiratory illness (Acute) Sepsis (Acute) Hospital Course: Pt came to ER with SOB, LOMAX, found to have LLL PNA, asthma exacerbation. Pt was admitted, started on IV abtx and IV steroids. Chect CT scan was c/w extensive LLL PNA and possible early right side PNA. Pt was seen by Pulmonary (Dr. Alvarez/ Par[place]). Pt also with leukocytopenia, anemia was seen by Heme (Dr. thomas), received IV iron. Pt with slow recovery, required slow steroid aby, oxygen supplementation; no home oxygen supplementation needed (per latest testing). Pt also with hyponatremia, seen by Renal (Dr. Gonzalez). Pt to be DC'ed home with office follow-up early next week. Condition: Good - Instructions - Home Medications Comprehensive Discharge Medication List: Ambulatory Orders see Patient Discharge Instructions.
== END 2019-01-11 18:44 | disposition home or self-care (01) | DRG 194 ==
LOC: JER 15:31 → JERBED 21:45 → J6S 01-02 03:07
PROVIDERS: ADMIT Internal Medicine; ATTEND Internal Medicine
DX: J18.9 Pneumonia, unspecified organism (principal); J45.901 Unspecified asthma with (acute) exacerbation; E87.1 Hypo-osmolality and hyponatremia; Z68.43 Body mass index [BMI] 50.0-59.9, adult; J45.909 Unspecified asthma, uncomplicated; G62.89 Other specified polyneuropathies; Z98.84 Bariatric surgery status; K80.20 Calculus of gallbladder without cholecystitis without obstruction; D50.8 Other iron deficiency anemias; D72.819 Decreased white blood cell count, unspecified; M54.16 Radiculopathy, lumbar region; R79.89 Other specified abnormal findings of blood chemistry; E66.9 Obesity, unspecified; E86.1 Hypovolemia; Z86.69 Personal history of other diseases of the nervous system and sense organs
CPT/HCPCS: 36415; 71046-TC-FY; 71250-TC; 80048; 80053; 82533; 82607; 82728; 82746; 82784; 83021; 83540; 83550; 83605; 83615; 83930; 83935; 84155; 84165; 84295; 84439; 84443; 84484; 85025; 85027; 85044; 85651; 85660; 86334; 87040; 87086; 94010; 94150; 94640; 94761; 99283-25; J0131; J1644; J1756; J7030

== ENCOUNTER 2019-02-25 11:48 | Emergency (ER) | payer OTHER | END 2019-02-25 13:54 | disposition left against medical advice (07) | LOC: JER 11:48 ==

== ENCOUNTER 2019-02-25 22:54 | Emergency (ER) | payer OTHER | END 2019-02-26 04:55 | disposition home or self-care (01) | LOC: JER 22:54 | DX: M79.671 Pain in right foot (principal); M79.672 Pain in left foot; G62.9 Polyneuropathy, unspecified; Z87.19 Personal history of other diseases of the digestive system; Z87.09 Personal history of other diseases of the respiratory system; Z86.2 Personal history of diseases of the blood and blood-forming organs and certain disorders involving the immune mechanism ==

== ENCOUNTER 2019-05-31 14:35 | Emergency (ER) | payer OTHER ==
[2019-05-31] MEDS ORDERED: IBUPROFEN 400 MG TABLET (FP) PO ONE ×2 (14:50→16:50)
--- NOTE | 2019-05-31 14:50 | PDOC ---
Rapid Medical Evaluation Medical Evaluation: Allergies Allergy/AdvReac Type Severity Reaction Status Date / Time erythromycin base Allergy Mild Hives Verified 02/25/19 23:15 [Erythromycin Base] I have performed a brief in-person evaluation of this patient. The patient presents with a chief complaint of: garage door fell on R shoulder today Pertinent physical exam findings: +TTP along R posterior shoulder, R upper traps , no clavicular tenderness I have ordered the following: Xray, motrin The patient will proceed to the ED for further evaluation. 05/31/19 14:47
[2019-05-31 14:51] VITALS: BP 145/79; PULSE 78; TEMP 98.2; BMI 55.0
--- NOTE | 2019-05-31 16:46 | PDOC ---
History of Present Illness - General Chief Complaint: Chronic pain Stated Complaint: RT SHOULDER PAIN Time Seen by Provider: 05/31/19 14:46 History Source: Patient - History of Present Illness Occurred: reports: this morning Upper Extremity Pain Location: right: shoulder, other (neck) Method of Injury: reports: direct blow Past History - Past Medical History Allergies/Adverse Reactions: Allergies Allergy/AdvReac Type Severity Reaction Status Date / Time erythromycin base Allergy Mild Hives Verified 05/31/19 14:48 [Erythromycin Base] Home Medications: Ambulatory Orders Pregabalin [Lyrica -] 100 mg PO BID 12/10/14 Omeprazole 20 mg PO DAILY 06/24/16 Duloxetine HCl [Cymbalta -] 30 mg PO BID 01/03/19 Levothyroxine [Synthroid -] 25 mcg PO DAILY 01/03/19 Oxycodone HCl [Oxycodone HCl ER] 15 tablet PO BID 01/03/19 Klonopin - 0.5 mg PO HS 01/04/19 Albuterol 2.5/Ipratropium 0.5 [Duoneb -] 1 amp NEB Q6H PRN #40 amp MDD 4 Cefpodoxime Proxetil [Vantin -] 200 mg PO Q12H #8 tablet MDD 2 01/11/19 Doxycycline Hyclate 100 mg PO Q12H #9 tablet MDD 2 01/11/19 Lisinopril [Prinivil] 20 mg PO DAILY tablet 01/11/19 Miconazole Nitrate [Miconazole 3] 200 mg PV HS supp.vag 01/11/19 predniSONE [Deltasone -] See Taper PO DAILY #28 tablet 01/11/19 Anemia: Yes Asthma: Yes COPD: No Dementia: No Diabetes: No - Surgical History Abdominal Surgery: Yes (Stomach lesion, fistula repair) Gastric Stapling: Yes (x2) Lung Surgery: Yes (L lung lesion) Neurologic Surgery: Yes (polyneuropathy) Orthopedic Surgery: Yes (KNEE SX, BUNION SX) - Immunization History Immunization Up to Date: Yes - Suicide/Smoking/Psychosocial Hx Smoking Status: No Smoking History: Never smoked Have you smoked in the past 12 months: No Number of Cigarettes Smoked Daily: 0 Hx Alcohol Use: No Drug/Substance Use Hx: No Substance Use Type: None Hx Substance Use Treatment: No Review of Systems - Review of Systems Musculoskeletal: Yes: Joint Pain. No: Joint Swelling Neurological: No: Headache, Numbness, Tingling, Weakness *Physical Exam - Vital Signs Last Vital Signs Temp Pulse Resp BP Pulse Ox 98.2 F 78 16 145/79 100 05/31/19 14:48 05/31/19 14:48 05/31/19 14:48 05/31/19 14:48 05/31/19 14:48 - Physical Exam General Appearance: Yes: Appropriately Dressed. No: Apparent Distress HEENT: positive: Normal Voice Neck: positive: Supple Respiratory/Chest: negative: Respiratory Distress Extremity: positive: Normal Inspection, Normal Range of Motion, Other (ttp along R neck into shoulder, no swelling, FROMi to r shoulder and cspine). negative: Swelling Integumentary: positive: Dry, Warm Neurologic: positive: Fully Oriented, Alert, Normal Mood/Affect, Motor Strength 5/5 Medical Decision Making - Medical Decision Making 05/31/19 16:44 49 yp female, morbidly obesed, asthma, here w/ pain to R neck/shoulder after garage door came down onto pt this am. No sensory changes. No head injury. Has not taken anything for pain See exam Shoulder contusion Exam only remarkable for minimal ttp to R neck and superior shoulder XR neg for fx -Dc w/ pain control -PMD f/u as needed *DC/Admit/Observation/Transfer Diagnosis at time of Disposition: Shoulder contusion Qualifiers: Encounter type: initial encounter Laterality: right Qualified Code(s): S40.011A - Contusion of right shoulder, initial encounter - Discharge Dispostion Disposition: HOME Condition at time of disposition: Good - Referrals - Patient Instructions Printed Discharge Instructions: Contusion Additional Instructions: Take motrin or tylenol for pain as needed - Post Discharge Activity
== END 2019-05-31 16:55 | disposition home or self-care (01) ==
LOC: JERFT 14:35 → JER 14:35 → JERFT 16:55
DX: S40.011A Contusion of right shoulder, initial encounter (principal); W20.8XXA Other cause of strike by thrown, projected or falling object, initial encounter; Y93.89 Activity, other specified; Y92.015 Private garage of single-family (private) house as the place of occurrence of the external cause; Y99.8 Other external cause status; J45.909 Unspecified asthma, uncomplicated; D64.9 Anemia, unspecified; Z88.1 Allergy status to other antibiotic agents
CPT/HCPCS: 73030-TC-RT-FY; 99281-25

== ENCOUNTER → 2021-06-10 | Emergency (ER) | payer OTHER ==
[2021-06-10 09:26] VITALS: BP 158/95; PULSE 63; TEMP 98.2; BMI 61.9
== END ==
LOC: JER 09:18
DX: R05 Cough (principal); R06.02 Shortness of breath; R50.9 Fever, unspecified
CPT/HCPCS: 99281-25

== ENCOUNTER 2021-11-30 11:11 | Emergency (ER) | payer OTHER ==
[2021-11-30 11:27] VITALS: TEMP 98.2; BMI 57.7
[2021-11-30] MEDS ORDERED: ACETAMINOPHEN 325 MG TABLET (FP) PO ONE (12:18)
[2021-11-30] MEDS ORDERED: ACETAMINOPHEN 325 MG TABLET (FP) ONE (12:45)
[2021-11-30] MEDS ORDERED: ALBUTEROL SO4 2.5/IPRATROPIUM 0.5 INH SOL 3 ML VIAL.NEB. NEB ONE (13:19)
[2021-11-30 13:23] LABS: BASO % 1.2 % (0-2.0); EOS % 1.6 % (0-4.5); HEMATOCRIT 33.4 % (32.4-45.2); HEMOGLOBIN 10.6 GM/dL (10.7-15.3); MCH 23.4 pg (25.7-33.7); MCHC 31.8 g/dl (32.0-36.0); MEAN CELL VOLUME 73.7 fl (80-96); MEAN PLT VOLUME 7.8 fl (7.5-11.1); MONO % 8.3 % (3.8-10.2); NEUT % 70.9 % (42.8-82.8); PLATELET COUNT 392 10^3/uL (134-434); RBC 4.53 M/mm3 (3.60-5.2); RDW 17.6 % (11.6-15.6); WHITE BLOOD COUNT 8.7 K/mm3 (4.0-10.0)
[2021-11-30 13:46] LABS: CALCIUM 8.3 mg/dL (8.5-10.1)
[2021-11-30 13:47] LABS: ALBUMIN 3.3 g/dl (3.4-5.0); BLOOD UREA NITROGEN 8.6 mg/dL (7-18); MAGNESIUM 2.1 mg/dL (1.8-2.4)
[2021-11-30] MEDS: ALBUTEROL SO4 2.5/IPRATROPIUM 0.5 INH SOL 3 ML VIAL.NEB. NEB SCH (13:49)
[2021-11-30 13:50] LABS: CREATININE 0.7 mg/dL (0.55-1.3)
[2021-11-30 13:51] LABS: BILIRUBIN,TOTAL 0.4 mg/dL (0.2-1); TOT PROT 7.8 g/dl (6.4-8.2)
[2021-11-30 13:56] LABS: N-TERMINAL BNP 80.4 pg/ml (5-125)
[2021-11-30 14:18] VITALS: BP 152/79; PULSE 86
== END 2021-11-30 14:20 | disposition left against medical advice (07) ==
LOC: JER 11:11
PROC: 3E0F7GC Introduction of Other Therapeutic Substance into Respiratory Tract, Via Natural or Artificial Opening (ICD-10-PCS; principal; 2021-11-30)
DX: R09.81 Nasal congestion (principal); R06.02 Shortness of breath
CPT/HCPCS: 36415; 71046-TC-FY; 80053; 83735; 83880; 84484; 85025; 93005; 93010; 99285-25

== ENCOUNTER 2022-01-27 11:25 | Inpatient (IN) | payer OTHER ==
[2022-01-27] MEDS ORDERED: ALBUTEROL SO4 2.5/IPRATROPIUM 0.5 INH SOL 3 ML VIAL.NEB. NEB ONE (12:01)
[2022-01-27] MEDS ORDERED: methylPREDNISolone NA SUCC 125 MG/2 ML VIAL IVPUSH ONE (12:01)
[2022-01-27] MEDS ORDERED: ACETAMINOPHEN 500 MG TABLET (FP) PO ONE (12:04)
[2022-01-27] MEDS ORDERED: methylPREDNISolone NA SUCC 125 MG/2 ML VIAL ONE (12:20)
[2022-01-27] MEDS ORDERED: ACETAMINOPHEN 325 MG TABLET (FP) ONE (12:20)
[2022-01-27 14:04] LABS: BASO % 0.8 % (0-2.0); EOS % 0.6 % (0-4.5); HEMATOCRIT 35.5 % (32.4-45.2); HEMOGLOBIN 11.1 GM/dL (10.7-15.3); LYMPH % 6.9 % (8-40); MCH 23.1 pg (25.7-33.7); MCHC 31.3 g/dl (32.0-36.0); MEAN CELL VOLUME 73.7 fl (80-96); MEAN PLT VOLUME 8.4 fl (7.5-11.1); NEUT % 86.7 % (42.8-82.8); PLATELET COUNT 386 10^3/uL (134-434); RBC 4.81 M/mm3 (3.60-5.2); RDW 17.2 % (11.6-15.6); WHITE BLOOD COUNT 14.9 K/mm3 (4.0-10.0)
[2022-01-27 14:27] LABS: CALCIUM 8.8 mg/dL (8.5-10.1)
[2022-01-27 14:28] LABS: ALBUMIN 3.7 g/dl (3.4-5.0); BLOOD UREA NITROGEN 10.3 mg/dL (7-18); MAGNESIUM 2.2 mg/dL (1.8-2.4)
[2022-01-27 14:31] LABS: CREATININE 0.8 mg/dL (0.55-1.3)
[2022-01-27 14:33] LABS: BILIRUBIN,TOTAL 0.5 mg/dL (0.2-1); TOT PROT 8.6 g/dl (6.4-8.2)
[2022-01-27] MEDS ORDERED: AZITHROMYCIN IVPB 500 MG in DEXTROSE 5%-WATER - 250 ML IVPB ONE (16:46)
[2022-01-27] MEDS ORDERED: AZITHROMYCIN IVPB 500 MG/250 ML BAG IVPB ONE (16:58)
[2022-01-27] MEDS ORDERED: CEFTRIAXONE 1 GM/50 ML BAG ONE (16:58)
[2022-01-27] MEDS ORDERED: ACETAMINOPHEN 325 MG TABLET (FP) PO PRN (21:23)
[2022-01-27] MEDS ORDERED: POLYETHYLENE GLYCOL (HEALTHYLAX) 3350 17 GM PACKET PO PRN (21:23)
[2022-01-27] MEDS ORDERED: ALBUTEROL SO4 HFA INHALER IH PRN (21:34)
[2022-01-27] MEDS: GABAPENTIN 300 MG CAPSULE PO SCH (22:54)
[2022-01-27] MEDS: methylPREDNISolone NA SUCC 40 MG/1 ML VIAL IVPUSH SCH (22:54)
[2022-01-27] MEDS: INSULIN SLIDING SCALE (NOVOLOG) 1 VIAL SQ SCH (23:24)
[2022-01-28] MEDS ORDERED: MINERAL OIL/PETROLAT/WATER TOPICAL CREAM 454 GM JAR TP PRN (01:27)
[2022-01-28] MEDS: MELATONIN 5 MG TABLETS PO PRN (01:59)
[2022-01-28] MEDS: methylPREDNISolone NA SUCC 40 MG/1 ML VIAL IVPUSH SCH ×3 (01:59→17:03)
[2022-01-28] MEDS: GABAPENTIN 300 MG CAPSULE PO SCH ×4 (01:59→22:21)
[2022-01-28 03:25] VITALS: BMI 64.5
[2022-01-28] MEDS ORDERED: FUROSEMIDE 20 MG PO SCH (06:00)
[2022-01-28] MEDS: INSULIN SLIDING SCALE (NOVOLOG) 1 VIAL SQ SCH ×4 (06:22→22:26)
[2022-01-28 08:25] LABS: CALCIUM 8.9 mg/dL (8.5-10.1); HEMATOCRIT 32.4 % (32.4-45.2); HEMOGLOBIN 10.3 GM/dL (10.7-15.3); MCH 23.5 pg (25.7-33.7); MCHC 31.9 g/dl (32.0-36.0); MEAN CELL VOLUME 73.8 fl (80-96); PLATELET COUNT 378 10^3/uL (134-434); RBC 4.39 M/mm3 (3.60-5.2); RDW 17.5 % (11.6-15.6); WHITE BLOOD COUNT 14.4 K/mm3 (4.0-10.0)
[2022-01-28 08:28] LABS: CREATININE 0.8 mg/dL (0.55-1.3)
[2022-01-28] MEDS: FUROSEMIDE 20 MG TABLET (FP) PO SCH (10:03)
[2022-01-28] MEDS: ENOXAPARIN NA (PORCINE) 40 MG/0.4 ML DISP.SYRIN SQ SCH (10:03)
[2022-01-28] MEDS: PANTOPRAZOLE 20 MG TABLET PO SCH (10:03)
[2022-01-28 10:23] LABS: ANISOCYTOSIS 0; MACROCYTOSIS 0; PLATELET ESTIMATE NORMAL
[2022-01-28] MEDS ORDERED: ALBUTEROL SO4 0.083% IH SOL 2.5 MG/3 ML VIAL.NEB. NEB PRN (11:32)
[2022-01-28] MEDS ORDERED: AZITHROMYCIN IVPB 500 MG in DEXTROSE 5%-WATER - 250 ML IVPB SCH (14:00)
[2022-01-28] MEDS ORDERED: AZITHROMYCIN IVPB 500 MG/250 ML BAG IVPB SCH (14:43)
[2022-01-28] MEDS: AZITHROMYCIN IVPB 500 MG/250 ML BAG IVPB SCH (15:53)
[2022-01-28] MEDS ORDERED: DEXTROSE 5%-WATER - 50 ML IVPB ONE (16:39)
[2022-01-28] MEDS ORDERED: cefTRIAXone SODIUM 1 GM VIAL ONE (16:39)
[2022-01-28] MEDS: CEFTRIAXONE 1 GM in DEXTROSE 5%-WATER - 50 ML IVPB SCH (17:04)
[2022-01-28] MEDS: guaiFENesin/D-M SUGAR-FREE/ACLHOL-FREE 118 ML BOTTLE PO PRN (22:27)
[2022-01-29] MEDS: methylPREDNISolone NA SUCC 40 MG/1 ML VIAL IVPUSH SCH ×3 (02:54→17:11)
[2022-01-29] MEDS: GABAPENTIN 300 MG CAPSULE PO SCH ×3 (05:46→22:04)
[2022-01-29] MEDS: INSULIN SLIDING SCALE (NOVOLOG) 1 VIAL SQ SCH ×4 (06:10→22:04)
[2022-01-29] MEDS ORDERED: DEXTROSE 5%-WATER - 50 ML IVPB ONE (09:00)
[2022-01-29] MEDS ORDERED: cefTRIAXone SODIUM 1 GM VIAL ONE (09:00)
[2022-01-29] MEDS: guaiFENesin/D-M SUGAR-FREE/ACLHOL-FREE 118 ML BOTTLE PO PRN ×2 (09:25→22:15)
[2022-01-29] MEDS: ENOXAPARIN NA (PORCINE) 40 MG/0.4 ML DISP.SYRIN SQ SCH (09:26)
[2022-01-29] MEDS: FUROSEMIDE 20 MG TABLET (FP) PO SCH (09:28)
[2022-01-29] MEDS: PANTOPRAZOLE 20 MG TABLET PO SCH (09:28)
[2022-01-29] MEDS: CEFTRIAXONE 1 GM in DEXTROSE 5%-WATER - 50 ML IVPB SCH (09:29)
[2022-01-29] MEDS: AZITHROMYCIN IVPB 500 MG/250 ML BAG IVPB SCH (09:54)
[2022-01-29 10:14] LABS: SARS-CoV-2 NAA Not Detected (Not Detected)
[2022-01-29 11:10] LABS: BASO % 0.1 % (0-2.0); HEMATOCRIT 33.2 % (32.4-45.2); HEMOGLOBIN 10.4 GM/dL (10.7-15.3); LYMPH % 7.3 % (8-40); MCH 23.1 pg (25.7-33.7); MCHC 31.3 g/dl (32.0-36.0); MEAN CELL VOLUME 73.9 fl (80-96); MEAN PLT VOLUME 7.9 fl (7.5-11.1); MONO % 5.2 % (3.8-10.2); NEUT % 87.4 % (42.8-82.8); PLATELET COUNT 433 10^3/uL (134-434); RDW 17.3 % (11.6-15.6); WHITE BLOOD COUNT 16.2 K/mm3 (4.0-10.0)
[2022-01-29 11:34] LABS: ALBUMIN 3.3 g/dl (3.4-5.0); BLOOD UREA NITROGEN 17.1 mg/dL (7-18)
[2022-01-29 11:37] LABS: CREATININE 0.8 mg/dL (0.55-1.3)
[2022-01-29 11:39] LABS: BILIRUBIN,TOTAL 0.2 mg/dL (0.2-1)
[2022-01-29] MEDS: ALBUTEROL SO4 2.5/IPRATROPIUM 0.5 INH SOL 3 ML VIAL.NEB. NEB SCH ×3 (12:00→20:37)
[2022-01-29] MEDS: MONTELUKAST NA 10 MG TABLET PO SCH (22:04)
[2022-01-30] MEDS: methylPREDNISolone NA SUCC 40 MG/1 ML VIAL IVPUSH SCH ×3 (02:31→12:27)
[2022-01-30] MEDS: GABAPENTIN 300 MG CAPSULE PO SCH ×3 (05:41→21:01)
[2022-01-30] MEDS: INSULIN SLIDING SCALE (NOVOLOG) 1 VIAL SQ SCH ×4 (06:00→21:01)
[2022-01-30] MEDS: ALBUTEROL SO4 2.5/IPRATROPIUM 0.5 INH SOL 3 ML VIAL.NEB. NEB SCH ×4 (08:10→19:58)
[2022-01-30] MEDS ORDERED: DEXTROSE 5%-WATER - 50 ML IVPB ONE (09:08)
[2022-01-30] MEDS ORDERED: cefTRIAXone SODIUM 1 GM VIAL ONE (09:08)
[2022-01-30] MEDS: FUROSEMIDE 20 MG TABLET (FP) PO SCH (09:18)
[2022-01-30] MEDS: PANTOPRAZOLE 20 MG TABLET PO SCH (09:18)
[2022-01-30] MEDS: guaiFENesin/D-M SUGAR-FREE/ACLHOL-FREE 118 ML BOTTLE PO PRN ×2 (09:19→21:02)
[2022-01-30] MEDS: ENOXAPARIN NA (PORCINE) 40 MG/0.4 ML DISP.SYRIN SQ SCH (09:20)
[2022-01-30] MEDS: CEFTRIAXONE 1 GM in DEXTROSE 5%-WATER - 50 ML IVPB SCH (09:21)
[2022-01-30] MEDS ORDERED: FLUTICASONE PROP 0.05% 16 GM NASAL SPRAY NS PRN (09:35)
[2022-01-30] MEDS: AZITHROMYCIN IVPB 500 MG/250 ML BAG IVPB SCH (10:06)
[2022-01-30] MEDS: FLUTICASONE PROP 0.05% 16 GM NASAL SPRAY NS SCH ×2 (10:27→21:01)
[2022-01-30] MEDS: LISINOPRIL 20 MG TABLET PO SCH (10:27)
[2022-01-30] MEDS: MONTELUKAST NA 10 MG TABLET PO SCH (21:02)
[2022-01-31] MEDS: methylPREDNISolone NA SUCC 40 MG/1 ML VIAL IVPUSH SCH ×2 (00:24→12:20)
[2022-01-31] MEDS: GABAPENTIN 300 MG CAPSULE PO SCH ×3 (06:53→21:45)
[2022-01-31] MEDS: INSULIN SLIDING SCALE (NOVOLOG) 1 VIAL SQ SCH ×4 (06:53→21:47)
[2022-01-31] MEDS: ALBUTEROL SO4 2.5/IPRATROPIUM 0.5 INH SOL 3 ML VIAL.NEB. NEB SCH ×4 (08:41→20:07)
[2022-01-31 09:04] LABS: BASO % 0.4 % (0-2.0); HEMATOCRIT 34.8 % (32.4-45.2); HEMOGLOBIN 11.2 GM/dL (10.7-15.3); LYMPH % 11.8 % (8-40); MCH 23.6 pg (25.7-33.7); MCHC 32.2 g/dl (32.0-36.0); MEAN CELL VOLUME 73.4 fl (80-96); MEAN PLT VOLUME 7.9 fl (7.5-11.1); NEUT % 81.8 % (42.8-82.8); PLATELET COUNT 413 10^3/uL (134-434); RBC 4.74 M/mm3 (3.60-5.2); RDW 17.4 % (11.6-15.6); WHITE BLOOD COUNT 13.6 K/mm3 (4.0-10.0)
[2022-01-31] MEDS ORDERED: cefTRIAXone SODIUM 1 GM VIAL ONE (09:09)
[2022-01-31] MEDS ORDERED: DEXTROSE 5%-WATER - 50 ML IVPB ONE (09:09)
[2022-01-31 10:10] LABS: BLOOD UREA NITROGEN 21.8 mg/dL (7-18); CALCIUM 9.1 mg/dL (8.5-10.1)
[2022-01-31 10:22] LABS: CREATININE 0.8 mg/dL (0.55-1.3)
[2022-01-31] MEDS: LISINOPRIL 20 MG TABLET PO SCH (10:29)
[2022-01-31] MEDS: guaiFENesin/D-M SUGAR-FREE/ACLHOL-FREE 118 ML BOTTLE PO PRN (10:29)
[2022-01-31] MEDS: FUROSEMIDE 20 MG TABLET (FP) PO SCH (10:29)
[2022-01-31] MEDS: FLUTICASONE PROP 0.05% 16 GM NASAL SPRAY NS SCH ×2 (10:29→21:47)
[2022-01-31] MEDS: ENOXAPARIN NA (PORCINE) 40 MG/0.4 ML DISP.SYRIN SQ SCH (10:29)
[2022-01-31] MEDS: CEFTRIAXONE 1 GM in DEXTROSE 5%-WATER - 50 ML IVPB SCH (10:29)
[2022-01-31] MEDS: PANTOPRAZOLE 20 MG TABLET PO SCH (10:29)
[2022-01-31] MEDS: AZITHROMYCIN IVPB 500 MG/250 ML BAG IVPB SCH (10:36)
[2022-01-31] MEDS: MONTELUKAST NA 10 MG TABLET PO SCH (21:44)
[2022-01-31] MEDS: MELATONIN 5 MG TABLETS PO PRN (21:45)
[2022-02-01] MEDS: methylPREDNISolone NA SUCC 40 MG/1 ML VIAL IVPUSH SCH (00:14)
[2022-02-01] MEDS: GABAPENTIN 300 MG CAPSULE PO SCH ×2 (06:45→15:06)
[2022-02-01] MEDS: INSULIN SLIDING SCALE (NOVOLOG) 1 VIAL SQ SCH ×2 (06:45→11:40)
[2022-02-01] MEDS ORDERED: INSULIN (NOVOLOG) ASPART 100 UNITS/ML 10ML VIAL ONE (06:56)
[2022-02-01] MEDS: ALBUTEROL SO4 2.5/IPRATROPIUM 0.5 INH SOL 3 ML VIAL.NEB. NEB SCH ×3 (08:00→15:00)
[2022-02-01] MEDS ORDERED: cefTRIAXone SODIUM 1 GM VIAL ONE (09:01)
[2022-02-01] MEDS ORDERED: DEXTROSE 5%-WATER - 50 ML IVPB ONE (09:01)
[2022-02-01] MEDS: CEFTRIAXONE 1 GM in DEXTROSE 5%-WATER - 50 ML IVPB SCH (09:32)
[2022-02-01] MEDS: PANTOPRAZOLE 20 MG TABLET PO SCH (09:32)
[2022-02-01] MEDS: FUROSEMIDE 20 MG TABLET (FP) PO SCH (09:32)
[2022-02-01] MEDS: ENOXAPARIN NA (PORCINE) 40 MG/0.4 ML DISP.SYRIN SQ SCH (09:32)
[2022-02-01] MEDS: LISINOPRIL 20 MG TABLET PO SCH (09:32)
[2022-02-01] MEDS: FLUTICASONE PROP 0.05% 16 GM NASAL SPRAY NS SCH (09:32)
[2022-02-01] MEDS: AZITHROMYCIN IVPB 500 MG/250 ML BAG IVPB SCH ×2 (09:33→11:21)
[2022-02-01] MEDS ORDERED: predniSONE 20 MG TABLET (UD) PO SCH (11:30)
[2022-02-01 14:14] VITALS: BP 142/78; PULSE 57; TEMP 97.4
[2022-02-01] MEDS: guaiFENesin/D-M SUGAR-FREE/ACLHOL-FREE 118 ML BOTTLE PO PRN (15:06)
== END 2022-02-01 16:16 | disposition home health service (06) | DRG 194 ==
LOC: JER 11:25 → MERGE 17:59 → JERBED 17:59 → J7W 21:46
PROVIDERS: ADMIT Internal Medicine; ATTEND Internal Medicine
DX: J18.9 Pneumonia, unspecified organism (principal); G61.0 Guillain-Barre syndrome; Z68.44 Body mass index [BMI] 60.0-69.9, adult; J44.1 Chronic obstructive pulmonary disease with (acute) exacerbation; J44.0 Chronic obstructive pulmonary disease with (acute) lower respiratory infection; I10 Essential (primary) hypertension; G62.9 Polyneuropathy, unspecified; I89.0 Lymphedema, not elsewhere classified; M79.7 Fibromyalgia; E66.01 Morbid (severe) obesity due to excess calories; E03.9 Hypothyroidism, unspecified
CPT/HCPCS: 0241U-QW; 36415; 71046-TC-FY; 71250-TC; 80048; 80053; 82962; 83735; 85025; 85027; 93005; 93010; 94150; 94640; 94761; 99285-25; C9803-CS; U0003; U0005

== ENCOUNTER 2022-08-07 18:45 | Inpatient (IN) | payer OTHER ==
[2022-08-07 19:24] VITALS: BMI 62.9
[2022-08-07] MEDS ORDERED: SODIUM CHLORIDE IV ONE (19:32)
[2022-08-07] MEDS ORDERED: ALBUTEROL SO4 2.5/IPRATROPIUM 0.5 INH SOL 3 ML VIAL.NEB. NEB ONE ×2 (19:45→19:46)
[2022-08-07] MEDS ORDERED: ACETAMINOPHEN 500 MG TABLET (FP) PO STA (19:47)
[2022-08-07] MEDS ORDERED: DEXAMETHASONE SOD PHOSPHATE 10 MG/1 ML VIAL IVPUSH ONE (19:48)
[2022-08-07] MEDS ORDERED: DEXAMETHASONE SOD PHOSPHATE 10 MG/1 ML VIAL ONE (20:18)
[2022-08-07 20:48] LABS: EOS % 0.4 % (0-4.5); HEMATOCRIT 32.8 % (32.4-45.2); HEMOGLOBIN 10.2 GM/dL (10.7-15.3); LYMPH % 11.8 % (8-40); MCH 22.3 pg (25.7-33.7); MEAN CELL VOLUME 71.9 fl (80-96); MEAN PLT VOLUME 7.6 fl (7.5-11.1); MONO % 7.6 % (3.8-10.2); NEUT % 79.2 % (42.8-82.8); PLATELET COUNT 389 10^3/uL (134-434); RBC 4.57 M/mm3 (3.60-5.2); RDW 17.5 % (11.6-15.6); WHITE BLOOD COUNT 10.4 K/mm3 (4.0-10.0)
[2022-08-07 20:51] LABS: VENOUS BASE EXCESS 1.9 mmol/L (-2-2); VENOUS O2 SATURATION 79.7 % (70-80); VENOUS PCO2 44.9 mmHg (38-52); VENOUS PH 7.398 (7.310-7.410)
[2022-08-07 20:55] LABS: INR 1.17 (0.83-1.09); PROTHROMBIN TIME (PATIENT) 13.5 SEC (9.7-13.0)
[2022-08-07 21:09] LABS: ALBUMIN 3.3 g/dl (3.4-5.0); BLOOD UREA NITROGEN 7.9 mg/dL (7-18); CALCIUM 8.9 mg/dL (8.5-10.1)
[2022-08-07] MEDS ORDERED: SODIUM CHLORIDE 0.9% 500 ML INFUS.BAG IV ONE (21:10)
[2022-08-07 21:12] LABS: CREATININE 0.7 mg/dL (0.55-1.3)
[2022-08-07 21:14] LABS: BILIRUBIN,TOTAL 0.3 mg/dL (0.2-1); TOT PROT 7.8 g/dl (6.4-8.2)
[2022-08-07] MEDS ORDERED: IBUPROFEN 400 MG TABLET (FP) PO ONE ×2 (21:49→22:10)
[2022-08-08] MEDS ORDERED: ACETAMINOPHEN 325 MG TABLET (FP) PO PRN (00:19)
[2022-08-08] MEDS ORDERED: FUROSEMIDE 40 MG TABLET (FP) PO PRN (00:19)
[2022-08-08] MEDS ORDERED: guaiFENesin/D-METHORPHAN HB 10 ML UNIT-DOSE CUPS PO PRN (00:24)
[2022-08-08] MEDS ORDERED: methylPREDNISolone NA SUCC 40 MG/1 ML VIAL ONE ×3 (03:21→18:04)
[2022-08-08] MEDS ORDERED: OSELTAMIVIR PHOSPHATE 75 MG CAPSULE ONE ×2 (03:44→12:44)
[2022-08-08] MEDS: OSELTAMIVIR PHOSPHATE 75 MG CAPSULE PO SCH ×2 (03:48→12:45)
[2022-08-08] MEDS: methylPREDNISolone NA SUCC 40 MG/1 ML VIAL IVPB SCH ×3 (03:48→18:07)
[2022-08-08] MEDS ORDERED: ALBUTEROL SO4 0.083% IH SOL 2.5 MG/3 ML VIAL.NEB. NEB ONE ×2 (03:49→11:49)
[2022-08-08] MEDS: ALBUTEROL SO4 0.083% IH SOL 2.5 MG/3 ML VIAL.NEB. NEB PRN ×2 (03:53→11:48)
[2022-08-08] MEDS ORDERED: GABAPENTIN 300 MG CAPSULE ONE ×2 (06:24→14:01)
[2022-08-08] MEDS: GABAPENTIN 300 MG CAPSULE PO SCH ×2 (06:26→14:09)
[2022-08-08] MEDS ORDERED: ALBUTEROL SO4 HFA INHALER IH PRN (07:08)
[2022-08-08] MEDS ORDERED: PANTOPRAZOLE 20 MG TABLET PO SCH ×2 (10:00)
[2022-08-08] MEDS ORDERED: ATROVENT PO SCH (10:00)
[2022-08-08] MEDS ORDERED: HEPARIN NA (PORCINE) 5,000 UNITS/ML 1ML VIAL SQ SCH (10:00)
[2022-08-08] MEDS ORDERED: LISINOPRIL 20 MG TABLET PO SCH (10:00)
[2022-08-08] MEDS ORDERED: HEPARIN NA (PORCINE) 5,000 UNITS/ML 1ML VIAL ONE (10:36)
[2022-08-08] MEDS ORDERED: LISINOPRIL 20 MG TABLET ONE ×2 (10:36→11:28)
[2022-08-08] MEDS ORDERED: PANTOPRAZOLE SODIUM 40 MG VIAL ONE (10:37)
[2022-08-08] MEDS ORDERED: PANTOPRAZOLE 20 MG TABLET PO ONE (11:28)
[2022-08-08] MEDS ORDERED: ACETAMINOPHEN 325 MG TABLET (FP) ONE (11:34)
[2022-08-08 11:58] VITALS: TEMP 97.8
[2022-08-08 16:38] VITALS: BP 149/80; RESP 20
[2022-08-08 17:10] VITALS: PULSE 104
[2022-08-08] MEDS ORDERED: MONTELUKAST NA 10 MG TABLET PO SCH (22:00)
== END 2022-08-08 18:14 | disposition home or self-care (01) | DRG 202 ==
LOC: JER 18:45 → JERBED 22:40
PROVIDERS: ADMIT Internal Medicine; ATTEND Internal Medicine
DX: J45.901 Unspecified asthma with (acute) exacerbation (principal); G61.0 Guillain-Barre syndrome; Z68.44 Body mass index [BMI] 60.0-69.9, adult; J10.1 Influenza due to other identified influenza virus with other respiratory manifestations; I10 Essential (primary) hypertension; I89.0 Lymphedema, not elsewhere classified; I25.10 Atherosclerotic heart disease of native coronary artery without angina pectoris; E03.9 Hypothyroidism, unspecified; E66.01 Morbid (severe) obesity due to excess calories; M35.3 Polymyalgia rheumatica; K21.9 Gastro-esophageal reflux disease without esophagitis; G62.9 Polyneuropathy, unspecified; G47.33 Obstructive sleep apnea (adult) (pediatric); M54.16 Radiculopathy, lumbar region; M79.7 Fibromyalgia; Z95.1 Presence of aortocoronary bypass graft
CPT/HCPCS: 0241U-QW; 36415; 71045-TC-FY; 80053; 82803; 83605; 84484; 85025; 85610; 85730; 86850; 86870; 86900; 86901; 86902; 87040; 93005; 93010; 94761; 99285-25; J1100

== ENCOUNTER 2024-02-27 16:51 | Emergency (ER) | payer OTHER ==
[2024-02-27 17:13] VITALS: BP 130/76; PULSE 81; RESP 16; TEMP 98.1; BMI 61.3
[2024-02-27] MEDS ORDERED: ONDANSETRON *ODT* 4 MG TABLET ONE (17:15)
[2024-02-27] MEDS: ONDANSETRON *ODT* 4 MG TABLET SL ONE (17:17)
[2024-02-27] MEDS ORDERED: ACETAMINOPHEN INJECTION 100 ML IVPB ONE (17:47)
[2024-02-27] MEDS ORDERED: FAMOTIDINE 20 MG/50 ML IVPB 20 MG/50 ML MG IVPB ONE (17:47)
[2024-02-27] MEDS: FAMOTIDINE 20 MG/50 ML IVPB 20 MG/50 ML MG IVPB ONE (18:00)
[2024-02-27] MEDS: ACETAMINOPHEN 1000 MG/100 ML BAG IVPB ONE (18:00)
[2024-02-27 18:09] LABS: HEMATOCRIT 39.9 % (32.4-45.2); HEMOGLOBIN 12.5 G/dL (10.7-15.3); MCHC 31.3 g/dl (32.0-36.0); MEAN CELL VOLUME 79.8 fl (80-96); MEAN PLT VOLUME 7.6 fl (7.5-11.1); PLATELET COUNT 292.1 10^3/uL (134-434)
[2024-02-27 18:21] LABS: PLATELET ESTIMATE ADEQUATE
[2024-02-27 18:26] LABS: ALBUMIN 3.8 g/dl (3.4-5.0); BILIRUBIN,TOTAL 0.5 mg/dl (0.2-1); CALCIUM 8.7 mg/dl (8.5-10.1); CREATININE 0.8 mg/dl (0.6-1.3); POTASSIUM 3.6 mmol/L (3.5-5.1); TOT PROT 7.4 g/dl (6.4-8.2)
== END 2024-02-27 21:35 | disposition home or self-care (01) ==
LOC: FER 16:51
PROC: 3E033GC Introduction of Other Therapeutic Substance into Peripheral Vein, Percutaneous Approach (ICD-10-PCS; principal; 2024-02-27)
PROC: 3E033NZ Introduction of Analgesics, Hypnotics, Sedatives into Peripheral Vein, Percutaneous Approach (ICD-10-PCS; 2024-02-27)
DX: R19.7 Diarrhea, unspecified (principal); R11.2 Nausea with vomiting, unspecified; R10.84 Generalized abdominal pain
CPT/HCPCS: 36415; 74177-TC; 80053; 83690; 85025; 96365; 96375; 99285-25; J0131; Q0162; Q9967

== ENCOUNTER 2024-07-25 11:01 | Emergency (ER) | payer OTHER ==
[2024-07-25 11:09] VITALS: BP 168/95; PULSE 60; RESP 17; TEMP 97.9; BMI 54.8
[2024-07-25] MEDS ORDERED: ACETAMINOPHEN 500 MG TABLET (FP) ONE (12:25)
[2024-07-25] MEDS: ACETAMINOPHEN 500 MG TABLET (FP) PO ONE (12:33)
[2024-07-25] MEDS ORDERED: KETOROLAC TROMETHAMINE 30 MG/1 ML VIAL ONE (14:47)
[2024-07-25] MEDS: KETOROLAC TROMETHAMINE 30 MG/1 ML VIAL IM ONE (14:51)
[2024-07-25 16:30] LABS: HIV INTERPRETATION NEGATIVE (NEGATIVE)
== END 2024-07-25 16:32 | disposition home or self-care (01) ==
LOC: JERFT 11:01
PROC: 3E0333Z Introduction of Anti-inflammatory into Peripheral Vein, Percutaneous Approach (ICD-10-PCS; principal; 2024-07-25)
DX: S59.811A Other specified injuries right forearm, initial encounter (principal); Y04.2XXA Assault by strike against or bumped into by another person, initial encounter; Y92.481 Parking lot as the place of occurrence of the external cause
CPT/HCPCS: 36415; 73030-TC-RT-FY; 73070-TC-RT-FY; 73090-TC-RT-FY; 73110-TC-RT-FY; 73130-TC-RT-FY; 86803; 87389; 99284-25